=== PATIENT | male | born 1940 | race Caucasian/White ===

== ENCOUNTER 2016-12-09 08:38 | Outpatient (CLI) | payer MEDICARE, OTHER | END 2016-12-09 08:39 | disposition home or self-care (01) | DX: I82.409 Acute embolism and thrombosis of unspecified deep veins of unspecified lower extremity (principal); Z79.01 Long term (current) use of anticoagulants ==

== ENCOUNTER 2017-01-06 10:36 | Outpatient (CLI) | payer MEDICARE, OTHER | END 2017-01-06 10:37 | disposition home or self-care (01) | DX: E11.9 Type 2 diabetes mellitus without complications (principal); E78.2 Mixed hyperlipidemia; C61 Malignant neoplasm of prostate; I82.409 Acute embolism and thrombosis of unspecified deep veins of unspecified lower extremity; Z79.01 Long term (current) use of anticoagulants; Z79.899 Other long term (current) drug therapy ==

== ENCOUNTER 2017-03-03 09:20 | Outpatient (CLI) | payer MEDICARE, OTHER | END 2017-03-03 09:21 | disposition home or self-care (01) | DX: I82.409 Acute embolism and thrombosis of unspecified deep veins of unspecified lower extremity (principal); Z79.01 Long term (current) use of anticoagulants ==

== ENCOUNTER 2017-03-31 07:59 | Outpatient (CLI) | payer MEDICARE, OTHER | END 2017-03-31 08:00 | disposition home or self-care (01) | DX: I82.409 Acute embolism and thrombosis of unspecified deep veins of unspecified lower extremity (principal); Z79.01 Long term (current) use of anticoagulants ==

== ENCOUNTER 2017-04-07 07:43 | Outpatient (CLI) | payer MEDICARE, OTHER | END 2017-04-07 07:44 | disposition home or self-care (01) | LOC: LAB.N 07:43 | PROVIDERS: ATTEND Internal Medicine | DX: I82.409 Acute embolism and thrombosis of unspecified deep veins of unspecified lower extremity (principal); Z79.01 Long term (current) use of anticoagulants | CPT/HCPCS: 85610 ==

== ENCOUNTER 2017-04-14 08:06 | Outpatient (CLI) | payer MEDICARE, OTHER | END 2017-04-14 08:07 | disposition home or self-care (01) | LOC: LAB.N 08:06 | PROVIDERS: ATTEND Internal Medicine | DX: I82.409 Acute embolism and thrombosis of unspecified deep veins of unspecified lower extremity (principal); Z79.01 Long term (current) use of anticoagulants | CPT/HCPCS: 85610 ==

== ENCOUNTER 2017-04-21 07:57 | Outpatient (CLI) | payer MEDICARE, OTHER | END 2017-04-21 07:58 | disposition home or self-care (01) | LOC: LAB.N 07:57 | PROVIDERS: ATTEND Internal Medicine | DX: I82.409 Acute embolism and thrombosis of unspecified deep veins of unspecified lower extremity (principal); Z79.01 Long term (current) use of anticoagulants | CPT/HCPCS: 85610 ==

== ENCOUNTER 2017-04-28 07:49 | Outpatient (CLI) | payer MEDICARE, OTHER | END 2017-04-28 07:50 | disposition home or self-care (01) | LOC: LAB.N 07:49 | PROVIDERS: ATTEND Internal Medicine | DX: I82.409 Acute embolism and thrombosis of unspecified deep veins of unspecified lower extremity (principal); Z79.01 Long term (current) use of anticoagulants | CPT/HCPCS: 85610 ==

== ENCOUNTER 2017-05-26 07:56 | Outpatient (CLI) | payer MEDICARE, OTHER ==
[2017-05-26 13:10] LABS: CALCIUM 8.9 mg/dL (8.5-10.3); CREATININE 1.3 mg/dL (0.6-1.2); POTASSIUM 3.6 mmol/L (3.5-5.0)
[2017-05-26 13:22] LABS: HEMOGLOBIN A1C 0.87 g/dL
== END 2017-05-26 07:57 | disposition home or self-care (01) ==
LOC: LAB.N 07:56
PROVIDERS: ATTEND Internal Medicine
DX: E11.9 Type 2 diabetes mellitus without complications (principal); I82.409 Acute embolism and thrombosis of unspecified deep veins of unspecified lower extremity
CPT/HCPCS: 36415; 80048; 83036; 85610

== ENCOUNTER 2017-06-23 08:21 | Outpatient (CLI) | payer MEDICARE, OTHER | END 2017-06-23 08:22 | LOC: LAB.N 08:21 | PROVIDERS: ATTEND Internal Medicine | DX: I82.409 Acute embolism and thrombosis of unspecified deep veins of unspecified lower extremity (principal); Z79.01 Long term (current) use of anticoagulants | CPT/HCPCS: 85610 ==

== ENCOUNTER 2017-07-21 08:26 | Outpatient (CLI) | payer MEDICARE, OTHER | END 2017-07-21 08:27 | LOC: LAB.N 08:26 | PROVIDERS: ATTEND Internal Medicine | DX: I82.409 Acute embolism and thrombosis of unspecified deep veins of unspecified lower extremity (principal); Z79.01 Long term (current) use of anticoagulants | CPT/HCPCS: 85610 ==

== ENCOUNTER 2017-08-18 08:34 | Outpatient (CLI) | payer MEDICARE, OTHER | END 2017-08-18 08:35 | disposition home or self-care (01) | LOC: LAB.N 08:34 | PROVIDERS: ATTEND Internal Medicine | DX: I82.409 Acute embolism and thrombosis of unspecified deep veins of unspecified lower extremity (principal); Z79.01 Long term (current) use of anticoagulants | CPT/HCPCS: 85610 ==

== ENCOUNTER 2017-10-13 07:37 | Outpatient (CLI) | payer MEDICARE, OTHER | END 2017-10-13 07:38 | disposition home or self-care (01) | LOC: LAB.N 07:37 | PROVIDERS: ATTEND Internal Medicine | DX: I82.409 Acute embolism and thrombosis of unspecified deep veins of unspecified lower extremity (principal); Z79.01 Long term (current) use of anticoagulants | CPT/HCPCS: 85610 ==

== ENCOUNTER 2017-11-10 08:00 | Outpatient (CLI) | payer MEDICARE, OTHER ==
[2017-11-10 13:59] LABS: INR 4.3 (0.8-1.2); PT - PROTHROMBIN TIME 45.5 secs (9.9-12.6)
== END 2017-11-10 08:01 | disposition home or self-care (01) ==
LOC: LAB.N 08:00
PROVIDERS: ATTEND Internal Medicine
DX: I82.409 Acute embolism and thrombosis of unspecified deep veins of unspecified lower extremity (principal); Z79.01 Long term (current) use of anticoagulants
CPT/HCPCS: 36415; 85610

== ENCOUNTER 2017-11-24 08:00 | Outpatient (CLI) | payer MEDICARE, OTHER | END 2017-11-24 08:01 | disposition home or self-care (01) | LOC: LAB.N 08:00 | PROVIDERS: ATTEND Internal Medicine | DX: I82.409 Acute embolism and thrombosis of unspecified deep veins of unspecified lower extremity (principal); Z79.01 Long term (current) use of anticoagulants | CPT/HCPCS: 85610 ==

== ENCOUNTER 2017-12-01 08:00 | Outpatient (CLI) | payer MEDICARE, OTHER | END 2017-12-01 08:01 | disposition home or self-care (01) | LOC: LAB.N 08:00 | PROVIDERS: ATTEND Internal Medicine | DX: I82.409 Acute embolism and thrombosis of unspecified deep veins of unspecified lower extremity (principal); Z79.01 Long term (current) use of anticoagulants | CPT/HCPCS: 85610 ==

== ENCOUNTER 2017-12-15 08:08 | Outpatient (CLI) | payer MEDICARE, OTHER | END 2017-12-15 08:09 | disposition home or self-care (01) | LOC: LAB.N 08:08 | PROVIDERS: ATTEND Internal Medicine | DX: I82.409 Acute embolism and thrombosis of unspecified deep veins of unspecified lower extremity (principal); Z79.01 Long term (current) use of anticoagulants | CPT/HCPCS: 85610 ==

== ENCOUNTER 2018-01-05 16:05 | Outpatient (CLI) | payer MEDICARE, OTHER ==
[2018-01-05 13:05] LABS: BASOPHILS % (AUTO) 0.8 %; EOSINOPHILS # (AUTO) 0.1 10^3/uL (0.0-0.7); EOSINOPHILS % (AUTO) 1.1 %; HGB - HEMOGLOBIN 14.1 g/dL (14.0-18.0); LYMPHOCYTES # (AUTO) 2.2 10^3/uL (1.5-3.5); LYMPHOCYTES % (AUTO) 36.8 %; MEAN CORPUSCULAR HEMOGLOBIN 32.3 pg (27.0-31.0); MEAN CORPUSCULAR HGB CONC 34.4 g/dL (32.0-36.0); MEAN CORPUSCULAR VOLUME 93.9 fL (80.0-94.0); MEAN PLATELET VOLUME 8.7 fL (7.4-11.4); MONOCYTES # (AUTO) 0.4 10^3/uL (0.0-1.0); NEUTROPHILS # (AUTO) 3.3 10^3/uL (1.5-6.6); NEUTROPHILS % (AUTO) 54.3 %; PLT - PLATELET COUNT 220 10^3/uL (130-450); RED BLOOD COUNT 4.37 10^6/uL (4.70-6.10); RED CELL DISTRIBUTION WIDTH 12.6 % (12.0-15.0)
[2018-01-05 13:19] LABS: SODIUM 136 mmol/L (135-145)
[2018-01-05 13:59] LABS: ALBUMIN/GLOBULIN RATIO 1.4 (1.0-2.2); ALKALINE PHOSPHATASE 65 IU/L (42-121); ALT ALANINE AMINOTRANSFERASE 17 IU/L (10-60); AST ASPARTATE AMINOTRANSFERASE 19 IU/L (10-42); BILIRUBIN,TOTAL 0.8 mg/dL (0.2-1.0); BUN - BLOOD UREA NITROGEN 19 mg/dL (6-20); CALCIUM 8.8 mg/dL (8.5-10.3); CARBON DIOXIDE - CO2 26 mmol/L (21-32); CHLORIDE 101 mmol/L (101-111); CHOLESTEROL 210 mg/dL; CREATININE 1.1 mg/dL (0.6-1.2); GFR - MDRD 65 (>89); GLUCOSE 124 mg/dL (70-100); HDL CHOLESTEROL 35 mg/dL; LDL CHOLESTEROL,CALCULATED 121 mg/dL; LDL/HDL RATIO 3.5 (<3.6); TOTAL PROTEIN 6.9 g/dL (6.7-8.2); VLDL CHOLESTEROL 54 mg/dL
[2018-01-05 14:36] LABS: HB2 TOTAL 15.3 g/dL; HEMOGLOBIN A1C 0.8 g/dL; HEMOGLOBIN A1C % 6.9 % (4.6-6.2)
== END 2018-01-05 16:06 | disposition home or self-care (01) ==
LOC: LAB.N 16:05
PROVIDERS: ATTEND Internal Medicine
DX: E11.9 Type 2 diabetes mellitus without complications (principal); Z79.01 Long term (current) use of anticoagulants; C61 Malignant neoplasm of prostate; I82.409 Acute embolism and thrombosis of unspecified deep veins of unspecified lower extremity; I48.91 Unspecified atrial fibrillation; E78.5 Hyperlipidemia, unspecified; I10 Essential (primary) hypertension
CPT/HCPCS: 36415; 80053; 80061; 83036; 83721; 84153; 84443; 85025; 85610

== ENCOUNTER 2018-02-16 08:42 | Outpatient (CLI) | payer MEDICARE, OTHER | END 2018-02-16 08:43 | disposition home or self-care (01) | LOC: LAB.N 08:42 | PROVIDERS: ATTEND Internal Medicine | DX: I82.409 Acute embolism and thrombosis of unspecified deep veins of unspecified lower extremity (principal); Z79.01 Long term (current) use of anticoagulants | CPT/HCPCS: 85610 ==

== ENCOUNTER 2018-03-02 08:46 | Outpatient (CLI) | payer MEDICARE, OTHER ==
[2018-03-02 13:54] LABS: ALT ALANINE AMINOTRANSFERASE 18 IU/L (10-60); AST ASPARTATE AMINOTRANSFERASE 18 IU/L (10-42); LDL CHOLESTEROL,DIRECT 54 mg/dL
== END 2018-03-02 08:47 | disposition home or self-care (01) ==
LOC: LAB.N 08:46
PROVIDERS: ATTEND Internal Medicine
DX: E78.5 Hyperlipidemia, unspecified (principal)
CPT/HCPCS: 36415; 83721; 84450; 84460

== ENCOUNTER 2018-03-16 08:27 | Outpatient (CLI) | payer MEDICARE, OTHER | END 2018-03-16 08:28 | disposition home or self-care (01) | LOC: LAB.N 08:27 | PROVIDERS: ATTEND Internal Medicine | DX: I82.409 Acute embolism and thrombosis of unspecified deep veins of unspecified lower extremity (principal); Z79.01 Long term (current) use of anticoagulants | CPT/HCPCS: 85610 ==

== ENCOUNTER 2018-04-12 08:00 | Outpatient (CLI) | payer MEDICARE, OTHER | END 2018-04-12 08:01 | disposition home or self-care (01) | LOC: LAB.N 08:00 | PROVIDERS: ATTEND Internal Medicine | DX: I82.409 Acute embolism and thrombosis of unspecified deep veins of unspecified lower extremity (principal); Z79.01 Long term (current) use of anticoagulants | CPT/HCPCS: 85610 ==

== ENCOUNTER 2018-04-26 08:00 | Outpatient (CLI) | payer MEDICARE, OTHER | END 2018-04-26 08:01 | LOC: LAB.N 08:00 | PROVIDERS: ATTEND Internal Medicine | DX: I82.409 Acute embolism and thrombosis of unspecified deep veins of unspecified lower extremity (principal); Z79.01 Long term (current) use of anticoagulants | CPT/HCPCS: 85610 ==

== ENCOUNTER 2018-04-27 08:00 | Outpatient (CLI) | payer MEDICARE, OTHER ==
--- NOTE | 2018-04-28 11:26 | Ultrasound Report ---
Procedure Date: 04/27/2018 Accession Number: [id number] / [id number] Procedure: US - Duplex Lwr Ext Arterial Bilat CPT Code: FULL RESULT: EXAM: BILATERAL LOWER EXTREMITY ARTERIAL DOPPLER ULTRASOUND EXAM DATE: 04/27/2018 09:57 AM. CLINICAL HISTORY: Bilateral lower extremity leg and foot pain. COMPARISON: None. TECHNIQUE: Real-time sonographic vascular imaging was performed by the chemical etch operator, utilizing color-flow, Doppler flow, and spectral analysis. Multiple solar sales representative static images were saved for review. FINDINGS: Right lower extremity arterial system: Elevated peak systolic velocity in the proximal right superficial femoral artery measuring up to 410 cm/s with prestenotic velocity measuring 38 cm/s with ratio measuring 10.8, suggesting greater than 90% stenosis, with poststenotic turbulence and monophasic waveforms distally. Left lower extremity arterial system: No focal high-grade stenosis identified, however monophasic waveforms in the calf arteries indicating underlying atherosclerotic disease. RIGHT LEG: MEDICATION AIDE: PSV 105 cm/sec. Biphasic waveform. PSFA: PSV 38 cm/sec. Triphasic waveform. MSFA: PSV 51 cm/sec. Biphasic waveform. DSFA: PSV 38 cm/sec. Biphasic waveform. PFA: PSV 54 cm/sec. Biphasic waveform. POP: PSV 27 cm/sec. Monophasic waveform. SAUL: PSV 27 cm/sec. Monophasic waveform. BACK DIGGER OPERATOR: PSV 20 cm/sec. Monophasic waveform. PER: PSV 41 cm/sec. Monophasic waveform. DPA: PSV 18 cm/sec. Monophasic waveform. LEFT LEG: MEDICATION AIDE: PSV 68 cm/sec. Triphasic waveform. PSFA: PSV 61 cm/sec. Biphasic waveform. MSFA: PSV 113 cm/sec. Biphasic waveform. DSFA: PSV 81 cm/sec. Triphasic waveform. PFA: PSV 60 cm/sec. Biphasic waveform. POP: PSV 48 cm/sec. Triphasic waveform. SAUL: PSV 36 cm/sec. Monophasic waveform. BACK DIGGER OPERATOR: PSV 61 cm/sec. Monophasic waveform. PER: PSV 58 cm/sec. Monophasic waveform. DPA: PSV 64 cm/sec. Monophasic waveform. Brachial Artery Systolic Pressure: Right 122/62. Left 120/60. Posterior tibial Artery Systolic Pressure: Right 97/76. Left 114/60. Ankle/Arm Index: Right 0.79. Left 0.93. IMPRESSION: 1. High-grade stenosis in the right proximal superficial femoral artery. 2. No high-grade stenosis seen in the left lower extremity arterial system identified, however waveforms indicating arterial disease RADIA
== END 2018-04-27 08:01 | disposition home or self-care (01) ==
LOC: DI 08:00
PROVIDERS: ATTEND Podiatrist
DX: I70.203 Unspecified atherosclerosis of native arteries of extremities, bilateral legs (principal); E11.59 Type 2 diabetes mellitus with other circulatory complications
CPT/HCPCS: 93922; 93925

== ENCOUNTER 2018-05-10 08:28 | Outpatient (CLI) | payer MEDICARE, OTHER | END 2018-05-10 08:29 | disposition home or self-care (01) | LOC: LAB.N 08:28 | PROVIDERS: ATTEND Internal Medicine | DX: I82.409 Acute embolism and thrombosis of unspecified deep veins of unspecified lower extremity (principal); Z79.01 Long term (current) use of anticoagulants | CPT/HCPCS: 85610 ==

== ENCOUNTER 2018-05-24 08:12 | Outpatient (CLI) | payer MEDICARE, OTHER | END 2018-05-24 08:13 | disposition home or self-care (01) | LOC: LAB.N 08:12 | PROVIDERS: ATTEND Internal Medicine | DX: I82.409 Acute embolism and thrombosis of unspecified deep veins of unspecified lower extremity (principal); Z79.01 Long term (current) use of anticoagulants | CPT/HCPCS: 85610 ==

== ENCOUNTER 2018-06-16 08:00 | Outpatient (CLI) | payer MEDICARE, OTHER ==
[2018-06-16 13:43] LABS: HB2 TOTAL 14.7 g/dL; HEMOGLOBIN A1C 0.94 g/dL
== END 2018-06-16 08:01 | disposition home or self-care (01) ==
LOC: LAB.N 08:00
PROVIDERS: ATTEND Internal Medicine
DX: E11.9 Type 2 diabetes mellitus without complications (principal); Z79.899 Other long term (current) drug therapy
CPT/HCPCS: 36415; 83036

== ENCOUNTER 2018-06-21 08:00 | Outpatient (CLI) | payer MEDICARE, OTHER | END 2018-06-21 08:01 | disposition home or self-care (01) | LOC: LAB.N 08:00 | PROVIDERS: ATTEND Internal Medicine | DX: I82.409 Acute embolism and thrombosis of unspecified deep veins of unspecified lower extremity (principal); Z79.01 Long term (current) use of anticoagulants | CPT/HCPCS: 85610 ==

== ENCOUNTER 2018-07-19 07:59 | Outpatient (CLI) | payer MEDICARE, OTHER | END 2018-07-19 08:00 | disposition home or self-care (01) | LOC: LAB.N 07:59 | PROVIDERS: ATTEND Internal Medicine | DX: I82.409 Acute embolism and thrombosis of unspecified deep veins of unspecified lower extremity (principal); Z79.01 Long term (current) use of anticoagulants | CPT/HCPCS: 85610 ==

== ENCOUNTER 2018-08-17 08:53 | Outpatient (CLI) | payer MEDICARE, OTHER | END 2018-08-17 08:54 | disposition home or self-care (01) | LOC: LAB 08:53 | PROVIDERS: ATTEND Internal Medicine | DX: I82.409 Acute embolism and thrombosis of unspecified deep veins of unspecified lower extremity (principal); Z79.01 Long term (current) use of anticoagulants | CPT/HCPCS: 85610 ==

== ENCOUNTER 2018-08-31 07:56 | Outpatient (CLI) | payer MEDICARE, OTHER | END 2018-08-31 07:57 | disposition home or self-care (01) | LOC: LAB.N 07:56 | PROVIDERS: ATTEND Internal Medicine | DX: I82.409 Acute embolism and thrombosis of unspecified deep veins of unspecified lower extremity (principal); Z79.01 Long term (current) use of anticoagulants | CPT/HCPCS: 36415; 85610 ==

== ENCOUNTER 2018-09-15 09:17 | Outpatient (CLI) | payer MEDICARE, OTHER ==
[2018-09-15 13:18] LABS: HB2 TOTAL 14.3 g/dL; HEMOGLOBIN A1C 1.01 g/dL; HEMOGLOBIN A1C % 8.6 % (4.6-6.2)
[2018-09-15 13:28] LABS: ALT ALANINE AMINOTRANSFERASE 24 IU/L (10-60); AST ASPARTATE AMINOTRANSFERASE 22 IU/L (10-42); LDL CHOLESTEROL,DIRECT 50 mg/dL
== END 2018-09-15 09:18 ==
LOC: LAB.N 09:17
PROVIDERS: ATTEND Internal Medicine
DX: E11.9 Type 2 diabetes mellitus without complications (principal); Z79.01 Long term (current) use of anticoagulants; E78.5 Hyperlipidemia, unspecified; I82.409 Acute embolism and thrombosis of unspecified deep veins of unspecified lower extremity
CPT/HCPCS: 36415; 83036; 83721; 84450; 84460; 85610

== ENCOUNTER 2018-09-29 09:26 | Outpatient (CLI) | payer MEDICARE, OTHER ==
[2018-09-29 14:03] LABS: INR 3.8 (0.8-1.2); PT - PROTHROMBIN TIME 42.4 secs (9.9-12.6)
== END 2018-09-29 09:27 ==
LOC: LAB.N 09:26
PROVIDERS: ATTEND Internal Medicine
DX: I82.409 Acute embolism and thrombosis of unspecified deep veins of unspecified lower extremity (principal); Z79.01 Long term (current) use of anticoagulants
CPT/HCPCS: 36415; 85610

== ENCOUNTER 2018-10-13 08:56 | Outpatient (CLI) | payer MEDICARE, OTHER | END 2018-10-13 23:59 | disposition home or self-care (01) | LOC: LAB.N 08:56 | PROVIDERS: ATTEND Internal Medicine | DX: I82.409 Acute embolism and thrombosis of unspecified deep veins of unspecified lower extremity (principal); Z79.01 Long term (current) use of anticoagulants | CPT/HCPCS: 85610 ==

== ENCOUNTER 2018-11-10 10:06 | Outpatient (CLI) | payer MEDICARE, OTHER | END 2018-11-10 23:59 | disposition home or self-care (01) | LOC: LAB.N 10:06 | PROVIDERS: ATTEND Internal Medicine | DX: I82.409 Acute embolism and thrombosis of unspecified deep veins of unspecified lower extremity (principal); Z79.01 Long term (current) use of anticoagulants | CPT/HCPCS: 85610 ==

== ENCOUNTER 2018-12-08 07:38 | Outpatient (CLI) | payer MEDICARE, OTHER | END 2018-12-08 23:59 | disposition home or self-care (01) | LOC: LAB.N 07:38 | PROVIDERS: ATTEND Internal Medicine | DX: I82.409 Acute embolism and thrombosis of unspecified deep veins of unspecified lower extremity (principal); Z79.01 Long term (current) use of anticoagulants | CPT/HCPCS: 85610 ==

== ENCOUNTER 2018-12-09 16:46 | Emergency (ER) | payer MEDICARE, OTHER ==
--- NOTE | 2018-12-09 17:10 | ED Physician Documentation ---
PD HPI Fall - Stated complaint Stated Complaint: FACE INJ/FALL - Chief complaint Chief Complaint: Trauma Hd/Nk - History obtained from History obtained from: Patient, EMS - History of Present Illness Mechanism of injury: Tripped (he says he remembers his feet getting tripped up on curb and he fell forward, striking face on curb, chest on ground, and right wrist injury from trying to break fall.) Fall distance: Standing position Where injury occurred: Street Timing - onset: Today Injury(ies) location: Head, Face, Chest, Right Upper Extremity (wrist) Quality of pain: Aching Associated symptoms: No: LOC, AMS Worsens with: Palpation (of the wrist and eyebrow areas) Contributing factors: Anticoagulated. No: Intoxicated Similar symptoms before: Has not had sx before Review of Systems Constitutional: denies: Fever, Chills, Myalgias Eyes: denies: Loss of vision, Decreased vision, Photophobia Nose: denies: Rhinorrhea / runny nose, Congestion Throat: denies: Sore throat Respiratory: denies: Cough GI: denies: Nausea Musculoskeletal: denies: Neck pain, Back pain PD PAST MEDICAL HISTORY - Past Medical History Cardiovascular: Hypertension, Atrial fibrillation Respiratory: None Endocrine/Autoimmune: Type 2 diabetes GI: GERD : Frequency Derm: None - Past Surgical History Past Surgical History: Yes General: EGD, Colonoscopy Neuro: Craniotomy HEENT: Cataracts - Present Medications Home Medications: Ambulatory Orders Medication Instructions Recorded Confirmed Metformin HCl [Metformin HCl ER] 750 mg PO BID 04/19/13 12/09/18 Cyanocobalamin [Vitamin B-12] 500 mcg PO DAILY 05/09/14 12/09/18 Docusate Sodium 250Mg Capsule 1 tab PO BID 05/09/14 12/09/18 [Colace] Pnv95/Ferrous Fumarate/FA 1 tab PO DAILY 05/09/14 12/09/18 [ Tablet] Ascorbic Acid [Vitamin C] 500 mg PO BID 03/11/16 12/09/18 Hydrochlorothiazide 25 mg PO DAILY 03/11/16 12/09/18 Metoprolol Tartrate [Lopressor] 50 mg PO BID 03/11/16 12/09/18 Warfarin [Coumadin] 5 mg PO QPM 03/11/16 12/09/18 Ferrous Gluconate [Iron] 240 mg PO DAILY PM 12/09/18 12/09/18 Rosuvastatin Calcium [Crestor] 5 mg PO DAILY 12/09/18 12/09/18 Guaifenesin [Mucinex] 600 mg PO PRN PRN 12/11/18 12/11/18 - Allergies Allergies/Adverse Reactions: Allergies Allergy/AdvReac Type Severity Reaction Status Date / Time ciprofloxacin [From Cipro] Allergy Mild Hives Verified 12/11/18 14:43 ciprofloxacin HCl * Allergy Mild Hives Verified 12/11/18 14:43 [From Cipro] - Social History Does the pt smoke?: No Smoking Status: Never smoker Does the pt drink ETOH?: No Does the pt have substance abuse?: No - POLST POLST Status: Full Code PD ED PE NORMAL - Vitals Vital signs reviewed: Yes - General General: Alert and oriented X 3, No acute distress, Well developed/nourished - HEENT HEENT: PERRL (anterior and posterior chambers appear normal. ), EOMI, Pharynx benign, Dentition benign, Other (right lateral eyebrow and upper eyelid with swelling and early bruising. ) - Neck Neck: Supple, no meningeal sign, No bony TTP, No adenopathy, Other (mild mid sternal chest tenderness without deformity. No bony tenderness in neck. ) - Cardiac Cardiac: RRR, No murmur - Respiratory Respiratory: Clear bilaterally - Abdomen Abdomen: Soft, Non distended - Back Back: No CVA TTP - Derm Derm: Normal color, Warm and dry, Other (right wrist with some tenderness at distal radius without obvious deformity. ) - Neuro Neuro: Alert and oriented X 3 Eye Opening: Spontaneous Motor: Obeys Commands Verbal: Oriented GCS Score: 15 - Psych Psych: Normal mood, Normal affect Results - Vitals Vitals: Oxygen O2 Source Room air - Labs Labs: Laboratory Tests 12/09/18 17:26 Whole Blood INR 3.2 H - Rads (name of study) head and face CT Radiology: Prelim report reviewed chest CT Radiology: Prelim report reviewed (no fractures nor hematomas) right wrist xray Radiology: Prelim report reviewed, EMP read contemporaneously, See rad report PD MEDICAL DECISION MAKING - ED course Complexity details: reviewed results, re-evaluated patient, considered differential (just the hematoma right lateral upper eyebrow. No eye injury itself. Normal mentation. Will get imaging of head and neck, also anterior chest, and right wrist. ), d/w patient Departure - Departure Disposition: 01 Home, Self Care Clinical Impression: Anticoagulant long-term use Periorbital hematoma Qualifiers: Laterality: right Qualified Code(s): H05.231 - Hemorrhage of right orbit Fall from slip, trip, or stumble Qualifiers: Encounter type: initial encounter Qualified Code(s): W01.0XXA - Fall on same level from slipping, tripping and stumbling without subsequent striking against object, initial encounter Condition: Stable Record reviewed to determine appropriate education?: Yes Instructions: ED Hematoma Follow-Up: Justen Roth MD [Primary Care Provider] - Comments: Cool towels or ice to the area of swelling. The radiologist did not see any signs of bleeding in the brain compartment. There is obviously the bruising around the eye. I would suggest holding tonight's dose of Coumadin as well given the new injury. Return if he has increasing signs of headache, confusion, off balance, other focal weaknesses. There rarely can repeat heat bleeding from an injury like this while on an anticoagulant. Typically that is very low risk if there is not already some bruising present. Tylenol if needed for pains. The wrist x-ray appeared normal as well as the ribs. Discharge Date/Time: 12/09/18 19:46
--- NOTE | 2018-12-09 18:24 | XRAY Report ---
Reason: fell with right wrist pain Procedure Date: 12/09/2018 Accession Number: [id number] / [id number] Procedure: XR - Wrist 3 View RT CPT Code: FULL RESULT: EXAM: RIGHT WRIST RADIOGRAPHY EXAM DATE: 12/09/2018 05:47 PM. CLINICAL HISTORY: Fell with right wrist pain. COMPARISON: None. TECHNIQUE: 3 views. FINDINGS: Bones: Normal. No fractures or bone lesions. Joints: No subluxation or narrowing. Mild chondrocalcinosis at the triangular fibrocartilage. Soft Tissues: Mild radial and ulnar artery atherosclerotic calcification. No janie soft tissue swelling. IMPRESSION: 1. No fracture or malalignment. 2. 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 [facility]
--- NOTE | 2018-12-09 18:48 | CT Report ---
Reason: fell, struck face, on coumadin Procedure Date: 12/09/2018 Accession Number: [id number] / [id number] Procedure: CT - Head W/O CPT Code: FULL RESULT: EXAM: CT HEAD EXAM DATE: 12/09/2018 06:18 PM. CLINICAL HISTORY: Fell. Struck face. On coumadin. COMPARISON: HEAD W/ 05/10/2014 3:53 AM. TECHNIQUE: Multiaxial CT images were obtained from the foramen magnum to the vertex. Reformats: Sagittal and coronal. IV contrast: None. In accordance with CT protocol optimization, one or more of the following dose reduction techniques were utilized for this exam: automated exposure control, adjustment of mA and/or KV based on patient size, or use of iterative reconstructive technique. FINDINGS: Parenchyma: No intraparenchymal hemorrhage. Stable anterior right temporal lobe and inferior right frontal lobe encephalomalacia. No evidence of mass, midline shift, or CT findings of acute infarction. Johnston-white differentiation is distinct. Stable chronic microangiopathic white matter changes are evident. Extraaxial Spaces: Normal for age. No subdural or epidural collections identified. Ventricles: The ventricles and cortical sulci are prominent, consistent with age-related tissue loss. Sinuses and orbits: Extensive mucosal thickening of the paranasal sinuses, with totally opacified ethmoid air cells. No fluid levels. Bones: No acute fracture. Prior right frontal craniotomy defect again noted. Other: Moderate right periorbital soft tissue swelling.. IMPRESSION: 1. Stable age-related cortical atrophic changes without evidence of acute intracranial abnormality. 2. Stable right tentorial thickening, inferior right frontal lobe encephalomalacia, and anterior right temporal lobe encephalomalacia. 3. Old right frontal craniotomy defect. 4. Advanced chronic sinusitis. [facility]
--- NOTE | 2018-12-09 18:52 | CT Report ---
Reason: fell, struck right orbit, on coumadin Procedure Date: 12/09/2018 Accession Number: [id number] / [id number] Procedure: CT - Facial Bones W/O CPT Code: FULL RESULT: EXAM: CT MAXILLOFACIAL WITHOUT CONTRAST EXAM DATE: 12/09/2018 06:19 PM. CLINICAL HISTORY: Fell. Struck right orbit. On coumadin. COMPARISONS: HEAD W/ 05/10/2014 3:53 AM. TECHNIQUE: Thin-section axial images were acquired of the face without contrast. Post-processing: Coronal and sagittal reformats. Other: None. In accordance with CT protocol optimization, one or more of the following dose reduction techniques were utilized for this exam: automated exposure control, adjustment of mA and/or KV based on patient size, or use of iterative reconstructive technique. FINDINGS: Soft Tissue: Moderate right periorbital bruising, with small 10 mm lower right forehead hematoma. Orbits: Symmetric and unremarkable. Bones: No fracture. Right frontal craniotomy defect noted. Temporomandibular Joints: The temporomandibular joints are symmetric and normally located. Sinuses: No fluid levels. Diffuse mucosal thickening, with totally opacified ethmoid air cells. Other: None. IMPRESSION: 1. No acute bony abnormality. 2. Moderate right periorbital bruising, with small 10 mm lower right forehead scalp hematoma. 3. Advanced chronic sinusitis. 4. Old right frontal craniotomy defect. [facility]
[2018-12-09 19:18] VITALS: BP 164/84
--- NOTE | 2018-12-09 19:18 | CT Report ---
Reason: fell, struck anterior chest, on coumadin Procedure Date: 12/09/2018 Accession Number: [id number] / [id number] Procedure: CT - Chest W/O CPT Code: FULL RESULT: EXAM: CT CHEST EXAM DATE: 12/09/2018 06:29 PM. CLINICAL HISTORY: Fell. Struck anterior chest. On coumadin. COMPARISONS: None. TECHNIQUE: Routine helical CT imaging was performed through the chest. IV contrast: None. Reconstructions: Coronal and sagittal. In accordance with CT protocol optimization, one or more of the following dose reduction techniques were utilized for this exam: automated exposure control, adjustment of mA and/or KV based on patient size, or use of iterative reconstructive technique. FINDINGS: Lungs/Pleura: Mild scarring/atelectasis in the bases. No nodules, bronchial thickening, consolidation, or edema. Pulmonary vasculature is normal. No pericardial or pleural effusion. No pneumothorax. Mediastinum: Aortic and coronary artery calcification noted. No adenopathy or masses. The heart and great vessels are normal. Bones: Unremarkable. Visualized Abdomen: Large gallstones noted. Other: No sign of soft tissue hematoma. IMPRESSION: 1. No fractures identified. 2. Mild scarring/atelectasis in the bases, otherwise clear lungs. 3. Multiple cholelithiasis noted. [facility]
== END 2018-12-09 19:46 | disposition home or self-care (01) ==
LOC: ED 16:46
DX: H05.231 Hemorrhage of right orbit (principal); I10 Essential (primary) hypertension; E11.9 Type 2 diabetes mellitus without complications; Z79.84 Long term (current) use of oral hypoglycemic drugs; I48.91 Unspecified atrial fibrillation; Z79.01 Long term (current) use of anticoagulants; Z91.81 History of falling
CPT/HCPCS: 70450; 70486; 71250; 85610; 99283

== ENCOUNTER 2018-12-11 14:35 | Emergency (ER) | payer MEDICARE, OTHER ==
[2018-12-11] MEDS ORDERED: LIDOCAINE-EPINEPH-TETRACAINE 3 ML SYRINGE TOP STA (14:53)
--- NOTE | 2018-12-11 14:57 | ED Physician Documentation ---
PD HPI HEENT - Stated complaint Stated Complaint: BLOODY NOSE/FACE SWELLING - Chief complaint Chief Complaint: General - History obtained from History obtained from: Patient, Family - History of Present Illness Timing - onset: Today Timing - duration: Minutes Timing - details: Abrupt onset, Still present Location: Nose Associated symptoms: Congestion, Rhinorrhea, Cough. No: Fever Similar symptoms before: Has not had sx before Recently seen: Emergency Dept - Additional information Additional information: 78-year-old male who is on Coumadin for DVT and A. fib has had a fall 3 days ago and he was evaluated in the emergency department had CT scan of his head done and at that time his INR was 3.2 and he was instructed to skip his Wednesday evening dose of Coumadin. He was well over the weekend he does have a lot of bruising to his face he denies any specific headache and he denies any change in his mentation. Today he got a bloody nose and he has come to the emergency department because of the bloody nose. The blood appears to be coming from the right nares and is been controlled by direct pressure. They bring in some gauze with some blood on it and this is scantly placed on the gauze. Review of Systems Constitutional: denies: Fever, Chills, Myalgias Eyes: denies: Decreased vision Ears: denies: Ear pain Nose: reports: Rhinorrhea / runny nose, Congestion, Epistaxis Throat: denies: Dental pain / toothache, Oral lesions / sores Cardiac: denies: Chest pain / pressure, Palpitations Respiratory: reports: Cough. denies: Dyspnea GI: denies: Abdominal Pain, Nausea, Vomiting : denies: Dysuria, Frequency PD PAST MEDICAL HISTORY - Past Medical History Past Medical History: Yes Cardiovascular: Hypertension Respiratory: None Endocrine/Autoimmune: Type 2 diabetes GI: GERD : Frequency Derm: None - Past Surgical History Past Surgical History: Yes General: EGD, Colonoscopy Neuro: Craniotomy HEENT: Cataracts - Present Medications Home Medications: Ambulatory Orders Medication Instructions Recorded Confirmed Metformin HCl [Metformin HCl ER] 750 mg PO BID 04/19/13 12/09/18 Cyanocobalamin [Vitamin B-12] 500 mcg PO DAILY 05/09/14 12/09/18 Docusate Sodium 250Mg Capsule 1 tab PO BID 05/09/14 12/09/18 [Colace] Pnv95/Ferrous Fumarate/FA 1 tab PO DAILY 05/09/14 12/09/18 [ Tablet] Ascorbic Acid [Vitamin C] 500 mg PO BID 03/11/16 12/09/18 Hydrochlorothiazide 25 mg PO DAILY 03/11/16 12/09/18 Metoprolol Tartrate [Lopressor] 50 mg PO BID 03/11/16 12/09/18 Warfarin [Coumadin] 5 mg PO QPM 03/11/16 12/09/18 Ferrous Gluconate [Iron] 240 mg PO DAILY PM 12/09/18 12/09/18 Rosuvastatin Calcium [Crestor] 5 mg PO DAILY 12/09/18 12/09/18 Guaifenesin [Mucinex] 600 mg PO PRN PRN 12/11/18 12/11/18 - Allergies Allergies/Adverse Reactions: Allergies Allergy/AdvReac Type Severity Reaction Status Date / Time ciprofloxacin [From Cipro] Allergy Mild Hives Verified 12/11/18 14:43 ciprofloxacin HCl * Allergy Mild Hives Verified 12/11/18 14:43 [From Cipro] - Social History Does the pt smoke?: No Smoking Status: Never smoker Does the pt drink ETOH?: No Does the pt have substance abuse?: No - POLST POLST Status: Full Code PD ED PE NORMAL - Vitals Vital signs reviewed: Yes (hypertension mild ) - General General: Alert and oriented X 3, No acute distress, Well developed/nourished - HEENT HEENT: PERRL, EOMI, Other (There is impressive appearing ecchymosis to the periorbital tissues bilaterally worse on the right. The patient looks like a raccoon. There is bleeding evident to the anterior septum on the right and not the left. ) - Neck Neck: Supple, no meningeal sign, No bony TTP - Cardiac Cardiac: RRR, No murmur - Respiratory Respiratory: No respiratory distress, Clear bilaterally - Abdomen Abdomen: Soft, Non tender - Derm Derm: Normal color, Warm and dry, No rash - Extremities Extremities: No deformity, No edema - Neuro Neuro: Alert and oriented X 3, chick room supervisor 2-12 intact, No motor deficit, No sensory deficit, Normal speech Eye Opening: Spontaneous Motor: Obeys Commands Verbal: Oriented GCS Score: 15 - Psych Psych: Normal mood, Normal affect Results - Vitals Vitals: Vital Signs - 24 hr 12/11/18 14:41 Temperature 35.8 C L Heart Rate 78 Respiratory 16 Rate Blood Pressure 136/75 H O2 Saturation 99 Oxygen O2 Source Room air - Labs Labs: Laboratory Tests 12/11/18 15:10 Whole Blood INR 2.3 H Procedures - Epistaxis Site: Right, Anterior Preparation: Other (let applied) Treatment: Silver Nitrate Other: Observed - no bleeding, Pt tolerated well PD MEDICAL DECISION MAKING - ED course Complexity details: considered differential, d/w patient ED course: 78-year-old male with epistaxis on Coumadin has an INR of 2.3 and his bleeding is coming from an area very anterior in the septum which was easy to control and has been cauterized with silver nitrate.He has had a recent head injury and he does not have any progression of symptoms regarding that with the exception of the ecchymosis around his eyes which is impressive appearing but of little consequence. Departure - Departure Disposition: 01 Home, Self Care Clinical Impression: Epistaxis Condition: Stable Instructions: ED Nosebleed Follow-Up: Justen Roth MD [Primary Care Provider] - Comments: The bleeding in the right side of the nose is very anterior and should be easy to control with direct pressure if it recurs. Today her INR was 2.3 and I would recommend you restarting your Coumadin at its previous dose.
[2018-12-11 15:44] VITALS: BP 116/59
== END 2018-12-11 15:25 | disposition home or self-care (01) ==
LOC: ED 14:35
DX: R04.0 Epistaxis (principal); J34.89 Other specified disorders of nose and nasal sinuses; R05 Cough; I48.91 Unspecified atrial fibrillation; Z86.718 Personal history of other venous thrombosis and embolism; Z79.01 Long term (current) use of anticoagulants; I10 Essential (primary) hypertension; E11.9 Type 2 diabetes mellitus without complications; Z79.84 Long term (current) use of oral hypoglycemic drugs
CPT/HCPCS: 30901; 85610; 99282; 99283

== ENCOUNTER 2018-12-27 08:00 | Outpatient (CLI) | payer MEDICARE, OTHER | END 2018-12-27 23:59 | disposition home or self-care (01) | LOC: LAB.N 08:00 | PROVIDERS: ATTEND Internal Medicine | DX: I82.409 Acute embolism and thrombosis of unspecified deep veins of unspecified lower extremity (principal); Z79.01 Long term (current) use of anticoagulants | CPT/HCPCS: 85610 ==

== ENCOUNTER 2019-01-05 08:01 | Outpatient (CLI) | payer MEDICARE, OTHER ==
[2019-01-05 14:22] LABS: BASOPHILS % (AUTO) 0.4 %; EOSINOPHILS # (AUTO) 0.1 10^3/uL (0.0-0.7); HGB - HEMOGLOBIN 12.8 g/dL (14.0-18.0); LYMPHOCYTES # (AUTO) 1.7 10^3/uL (1.5-3.5); MEAN CORPUSCULAR HEMOGLOBIN 32.5 pg (27.0-31.0); MEAN CORPUSCULAR HGB CONC 33.4 g/dL (32.0-36.0); MEAN CORPUSCULAR VOLUME 97.3 fL (80.0-94.0); MEAN PLATELET VOLUME 8.2 fL (7.4-11.4); MONOCYTES # (AUTO) 0.4 10^3/uL (0.0-1.0); MONOCYTES % (AUTO) 6.7 %; NEUTROPHILS # (AUTO) 3.5 10^3/uL (1.5-6.6); NEUTROPHILS % (AUTO) 60.9 %; PLT - PLATELET COUNT 194 10^3/uL (130-450); RED BLOOD COUNT 3.96 10^6/uL (4.70-6.10); RED CELL DISTRIBUTION WIDTH 13.5 % (12.0-15.0); WHITE BLOOD COUNT 5.7 x10^3/uL (4.8-10.8)
[2019-01-05 14:35] LABS: ALBUMIN 3.6 g/dL (3.2-5.5); ALBUMIN/GLOBULIN RATIO 1.2 (1.0-2.2); ALKALINE PHOSPHATASE 74 IU/L (42-121); ALT ALANINE AMINOTRANSFERASE 19 IU/L (10-60); AST ASPARTATE AMINOTRANSFERASE 22 IU/L (10-42); BILIRUBIN,TOTAL 0.8 mg/dL (0.2-1.0); BUN - BLOOD UREA NITROGEN 20 mg/dL (6-20); CALCIUM 8.4 mg/dL (8.5-10.3); CARBON DIOXIDE - CO2 28 mmol/L (21-32); CHLORIDE 100 mmol/L (101-111); CHOL/HDL RATIO 2.8 (<5.0); CHOLESTEROL 110 mg/dL; CREATININE 0.9 mg/dL (0.6-1.2); GFR - MDRD 81 (>89); GLUCOSE 138 mg/dL (70-100); HDL CHOLESTEROL 39 mg/dL; LDL CHOLESTEROL,CALCULATED 42 mg/dL; LDL/HDL RATIO 1.1 (<3.6); SODIUM 138 mmol/L (135-145); TOTAL PROTEIN 6.7 g/dL (6.7-8.2); VLDL CHOLESTEROL 29 mg/dL
[2019-01-05 14:54] LABS: HB2 TOTAL 13.5 g/dL; HEMOGLOBIN A1C 0.7 g/dL; HEMOGLOBIN A1C % 6.9 % (4.6-6.2)
== END 2019-01-05 23:59 | disposition home or self-care (01) ==
LOC: LAB.N 08:01
PROVIDERS: ATTEND Internal Medicine
DX: I48.91 Unspecified atrial fibrillation (principal); I73.9 Peripheral vascular disease, unspecified; C61 Malignant neoplasm of prostate; E78.5 Hyperlipidemia, unspecified; E11.9 Type 2 diabetes mellitus without complications
CPT/HCPCS: 36415; 80053; 80061; 83036; 83721; 84153; 84443; 85025; 85610

== ENCOUNTER 2019-01-11 08:40 | Outpatient (CLI) | payer MEDICARE, OTHER | END 2019-01-11 23:59 | disposition home or self-care (01) | LOC: LAB.N 08:40 | PROVIDERS: ATTEND Internal Medicine | DX: I82.409 Acute embolism and thrombosis of unspecified deep veins of unspecified lower extremity (principal); Z79.01 Long term (current) use of anticoagulants | CPT/HCPCS: 85610 ==

== ENCOUNTER 2019-02-21 09:22 | Outpatient (CLI) | payer MEDICARE, OTHER ==
[2019-02-21 10:03] LABS: CALCIUM 8.5 mg/dL (8.5-10.3)
== END 2019-02-21 09:23 | disposition home or self-care (01) ==
LOC: LAB 09:22
PROVIDERS: ATTEND Internal Medicine
DX: E87.6 Hypokalemia (principal); Z79.01 Long term (current) use of anticoagulants; I48.91 Unspecified atrial fibrillation
CPT/HCPCS: 36415; 80048; 85610

== ENCOUNTER 2019-03-01 08:00 | Outpatient (CLI) | payer MEDICARE, OTHER | END 2019-03-01 23:59 | disposition home or self-care (01) | LOC: LAB.N 08:00 | PROVIDERS: ATTEND Internal Medicine | DX: I48.91 Unspecified atrial fibrillation (principal); Z79.01 Long term (current) use of anticoagulants | CPT/HCPCS: 85610 ==

== ENCOUNTER 2019-03-08 08:00 | Outpatient (CLI) | payer MEDICARE, OTHER | END 2019-03-08 23:59 | disposition home or self-care (01) | LOC: LAB.N 08:00 | PROVIDERS: ATTEND Internal Medicine | DX: I48.91 Unspecified atrial fibrillation (principal); Z79.01 Long term (current) use of anticoagulants | CPT/HCPCS: 85610 ==

== ENCOUNTER 2019-03-13 08:00 | Outpatient (CLI) | payer MEDICARE, OTHER | END 2019-03-13 23:59 | disposition home or self-care (01) | LOC: LAB.N 08:00 | PROVIDERS: ATTEND Internal Medicine | DX: I48.91 Unspecified atrial fibrillation (principal); Z79.01 Long term (current) use of anticoagulants | CPT/HCPCS: 85610 ==

== ENCOUNTER 2019-03-20 08:00 | Outpatient (CLI) | payer MEDICARE, OTHER | END 2019-03-20 23:59 | disposition home or self-care (01) | LOC: LAB.N 08:00 | PROVIDERS: ATTEND Internal Medicine | DX: I48.91 Unspecified atrial fibrillation (principal); Z79.01 Long term (current) use of anticoagulants | CPT/HCPCS: 85610 ==

== ENCOUNTER 2019-03-27 08:00 | Outpatient (CLI) | payer MEDICARE, OTHER | END 2019-03-27 23:59 | disposition home or self-care (01) | LOC: LAB.N 08:00 | PROVIDERS: ATTEND Internal Medicine | DX: Z79.01 Long term (current) use of anticoagulants (principal); I48.91 Unspecified atrial fibrillation | CPT/HCPCS: 85610 ==

== ENCOUNTER 2019-04-03 08:00 | Outpatient (CLI) | payer MEDICARE, OTHER | END 2019-04-03 23:59 | disposition home or self-care (01) | LOC: LAB.N 08:00 | PROVIDERS: ATTEND Internal Medicine | DX: I48.91 Unspecified atrial fibrillation (principal); Z79.01 Long term (current) use of anticoagulants | CPT/HCPCS: 85610 ==

== ENCOUNTER 2019-04-11 08:00 | Outpatient (CLI) | payer MEDICARE, OTHER | END 2019-04-11 23:59 | disposition home or self-care (01) | LOC: LAB.N 08:00 | PROVIDERS: ATTEND Internal Medicine | DX: I48.91 Unspecified atrial fibrillation (principal); Z79.01 Long term (current) use of anticoagulants | CPT/HCPCS: 85610 ==

== ENCOUNTER 2019-04-18 08:00 | Outpatient (CLI) | payer MEDICARE, OTHER | END 2019-04-18 23:59 | disposition home or self-care (01) | LOC: LAB.N 08:00 | PROVIDERS: ATTEND Internal Medicine | DX: I48.91 Unspecified atrial fibrillation (principal); Z79.01 Long term (current) use of anticoagulants | CPT/HCPCS: 85610 ==

== ENCOUNTER 2019-04-26 08:00 | Outpatient (CLI) | payer MEDICARE, OTHER | END 2019-04-26 23:59 | disposition home or self-care (01) | LOC: LAB.N 08:00 | PROVIDERS: ATTEND Internal Medicine | DX: I48.91 Unspecified atrial fibrillation (principal); Z79.01 Long term (current) use of anticoagulants | CPT/HCPCS: 85610 ==

== ENCOUNTER 2019-05-03 08:00 | Outpatient (CLI) | payer MEDICARE, OTHER | END 2019-05-03 23:59 | disposition home or self-care (01) | LOC: LAB.N 08:00 | PROVIDERS: ATTEND Internal Medicine | DX: Z79.01 Long term (current) use of anticoagulants (principal); I48.91 Unspecified atrial fibrillation | CPT/HCPCS: 85610 ==

== ENCOUNTER 2019-05-10 08:00 | Outpatient (CLI) | payer MEDICARE, OTHER | END 2019-05-10 08:01 | disposition home or self-care (01) | LOC: LAB.N 08:00 | PROVIDERS: ATTEND Internal Medicine | DX: I48.91 Unspecified atrial fibrillation (principal); Z79.01 Long term (current) use of anticoagulants | CPT/HCPCS: 85610 ==

== ENCOUNTER 2019-05-25 09:52 | Outpatient (CLI) | payer MEDICARE, OTHER | END 2019-05-25 23:59 | disposition home or self-care (01) | LOC: LAB.WCP 09:52 | PROVIDERS: ATTEND Internal Medicine | DX: I48.91 Unspecified atrial fibrillation (principal); Z79.01 Long term (current) use of anticoagulants | CPT/HCPCS: 85610 ==

== ENCOUNTER 2019-06-15 | Outpatient (CLI) | payer MEDICARE, OTHER | END 2019-06-15 23:59 | disposition home or self-care (01) | DX: I48.91 Unspecified atrial fibrillation (principal); Z79.01 Long term (current) use of anticoagulants | CPT/HCPCS: 85610 ==

== ENCOUNTER 2019-06-29 08:43 | Outpatient (CLI) | payer MEDICARE, OTHER | END 2019-06-29 23:59 | disposition home or self-care (01) | LOC: LAB.N 08:43 | PROVIDERS: ATTEND Internal Medicine | DX: I48.91 Unspecified atrial fibrillation (principal); Z79.01 Long term (current) use of anticoagulants | CPT/HCPCS: 85610 ==

== ENCOUNTER 2019-07-06 08:00 | Outpatient (CLI) | payer MEDICARE, OTHER | END 2019-07-06 23:59 | LOC: LAB.N 08:00 | PROVIDERS: ATTEND Family Medicine | DX: I48.91 Unspecified atrial fibrillation (principal); Z79.01 Long term (current) use of anticoagulants | CPT/HCPCS: 85610 ==

== ENCOUNTER 2019-07-13 10:01 | Outpatient (CLI) | payer MEDICARE, OTHER | END 2019-07-13 23:59 | disposition home or self-care (01) | LOC: LAB.N 10:01 | PROVIDERS: ATTEND Family Medicine | DX: I48.91 Unspecified atrial fibrillation (principal); Z79.01 Long term (current) use of anticoagulants | CPT/HCPCS: 85610 ==

== ENCOUNTER 2019-07-24 08:00 | Outpatient (CLI) | payer MEDICARE, OTHER | END 2019-07-24 23:59 | disposition home or self-care (01) | LOC: LAB.N 08:00 | PROVIDERS: ATTEND Family Medicine | DX: I48.91 Unspecified atrial fibrillation (principal); Z79.01 Long term (current) use of anticoagulants | CPT/HCPCS: 85610 ==

== ENCOUNTER 2019-07-31 08:00 | Outpatient (CLI) | payer MEDICARE, OTHER | END 2019-07-31 23:59 | disposition home or self-care (01) | LOC: LAB.N 08:00 | PROVIDERS: ATTEND Family Medicine | DX: I48.91 Unspecified atrial fibrillation (principal); Z79.01 Long term (current) use of anticoagulants | CPT/HCPCS: 85610 ==

== ENCOUNTER 2019-08-07 08:00 | Outpatient (CLI) | payer MEDICARE, OTHER | END 2019-08-07 08:15 | disposition home or self-care (01) | LOC: LAB.N 08:00 | PROVIDERS: ATTEND Family Medicine | DX: I48.91 Unspecified atrial fibrillation (principal); Z79.01 Long term (current) use of anticoagulants | CPT/HCPCS: 85610 ==

== ENCOUNTER 2019-08-22 09:08 | Outpatient (CLI) | payer MEDICARE, OTHER ==
[2019-08-22 12:44] LABS: CALCIUM 9.1 mg/dL (8.5-10.3)
[2019-08-22 12:55] LABS: HEMOGLOBIN A1C 0.76 g/dL; HEMOGLOBIN A1C % 7.1 % (4.6-6.2)
[2019-08-22 12:57] LABS: THYROID STIMULATING HORMONE 1.8 uIU/mL (0.34-5.60)
[2019-08-22 12:59] LABS: FREE T4 (FREE THYROXINE) 0.81 ng/dL (0.58-1.64)
== END 2019-08-22 23:59 | disposition home or self-care (01) ==
LOC: LAB.N 09:08
PROVIDERS: ATTEND Family Medicine
DX: Z79.01 Long term (current) use of anticoagulants (principal); I48.91 Unspecified atrial fibrillation; E11.9 Type 2 diabetes mellitus without complications; I10 Essential (primary) hypertension; E66.9 Obesity, unspecified
CPT/HCPCS: 36415; 80048; 83036; 84439; 84443; 84481; 85610

== ENCOUNTER 2019-08-30 08:00 | Outpatient (CLI) | payer MEDICARE, OTHER | END 2019-08-30 23:59 | disposition home or self-care (01) | LOC: LAB.N 08:00 | PROVIDERS: ATTEND Family Medicine | DX: Z79.01 Long term (current) use of anticoagulants (principal); I48.91 Unspecified atrial fibrillation | CPT/HCPCS: 85610 ==

== ENCOUNTER 2019-09-07 09:34 | Outpatient (CLI) | payer MEDICARE, OTHER | END 2019-09-07 09:35 | disposition home or self-care (01) | LOC: LAB.N 09:34 | PROVIDERS: ATTEND Family Medicine | DX: Z79.01 Long term (current) use of anticoagulants (principal); I48.91 Unspecified atrial fibrillation | CPT/HCPCS: 85610 ==

== ENCOUNTER 2019-09-14 08:00 | Outpatient (CLI) | payer MEDICARE, OTHER | END 2019-09-14 23:59 | LOC: LAB.N 08:00 | PROVIDERS: ATTEND Family Medicine | DX: Z79.01 Long term (current) use of anticoagulants (principal); I48.91 Unspecified atrial fibrillation | CPT/HCPCS: 85610 ==

== ENCOUNTER 2019-09-28 07:29 | Outpatient (CLI) | payer MEDICARE, OTHER | END 2019-09-28 23:59 | disposition home or self-care (01) | LOC: LAB.N 07:29 | PROVIDERS: ATTEND Family Medicine | DX: Z79.01 Long term (current) use of anticoagulants (principal); I48.91 Unspecified atrial fibrillation | CPT/HCPCS: 85610 ==

== ENCOUNTER 2019-10-26 10:04 | Outpatient (CLI) | payer MEDICARE, OTHER | END 2019-10-26 23:59 | disposition home or self-care (01) | LOC: LAB.N 10:04 | PROVIDERS: ATTEND Family Medicine | DX: Z79.01 Long term (current) use of anticoagulants (principal); I48.91 Unspecified atrial fibrillation | CPT/HCPCS: 85610 ==

== ENCOUNTER 2019-11-23 08:00 | Outpatient (CLI) | payer MEDICARE, OTHER | END 2019-11-23 23:59 | disposition home or self-care (01) | LOC: LAB.N 08:00 | PROVIDERS: ATTEND Family Medicine | DX: Z79.01 Long term (current) use of anticoagulants (principal); I48.91 Unspecified atrial fibrillation | CPT/HCPCS: 85610 ==

== ENCOUNTER 2019-12-21 07:45 | Outpatient (CLI) | payer MEDICARE, OTHER | END 2019-12-21 23:59 | disposition home or self-care (01) | LOC: LAB.N 07:45 | PROVIDERS: ATTEND Family Medicine | DX: I48.91 Unspecified atrial fibrillation (principal); Z79.01 Long term (current) use of anticoagulants | CPT/HCPCS: 85610 ==

== ENCOUNTER 2019-12-29 10:46 | Outpatient (CLI) | payer MEDICARE, OTHER | END 2019-12-29 23:59 | disposition home or self-care (01) | LOC: LAB.N 10:46 | PROVIDERS: ATTEND Family Medicine | DX: Z79.01 Long term (current) use of anticoagulants (principal); I48.91 Unspecified atrial fibrillation | CPT/HCPCS: 85610 ==

== ENCOUNTER 2020-01-04 07:29 | Outpatient (CLI) | payer MEDICARE, OTHER | END 2020-01-04 23:59 | disposition home or self-care (01) | LOC: LAB.N 07:29 | PROVIDERS: ATTEND Family Medicine | DX: Z79.01 Long term (current) use of anticoagulants (principal); I48.91 Unspecified atrial fibrillation | CPT/HCPCS: 85610 ==

== ENCOUNTER 2020-01-18 10:16 | Outpatient (CLI) | payer MEDICARE, OTHER | END 2020-01-18 23:59 | disposition home or self-care (01) | LOC: LAB.N 10:16 | PROVIDERS: ATTEND Family Medicine | DX: I48.91 Unspecified atrial fibrillation (principal); Z79.01 Long term (current) use of anticoagulants | CPT/HCPCS: 85610 ==

== ENCOUNTER 2020-01-25 09:41 | Outpatient (CLI) | payer MEDICARE, OTHER | END 2020-01-25 23:59 | disposition home or self-care (01) | LOC: LAB.N 09:41 | PROVIDERS: ATTEND Family Medicine | DX: I48.91 Unspecified atrial fibrillation (principal); Z79.01 Long term (current) use of anticoagulants | CPT/HCPCS: 85610 ==

== ENCOUNTER 2020-02-08 08:33 | Outpatient (CLI) | payer MEDICARE, OTHER | END 2020-02-08 23:59 | disposition home or self-care (01) | LOC: LAB.N 08:33 | PROVIDERS: ATTEND Family Medicine | DX: I48.91 Unspecified atrial fibrillation (principal); Z79.01 Long term (current) use of anticoagulants | CPT/HCPCS: 85610 ==

== ENCOUNTER 2020-02-15 09:00 | Outpatient (CLI) | payer MEDICARE, OTHER ==
[2020-02-15 12:13] LABS: INR 2.1 (0.8-1.2); PT - PROTHROMBIN TIME 22.5 secs (9.9-12.6)
== END 2020-02-15 23:59 | disposition home or self-care (01) ==
LOC: LAB.WCP 09:00
PROVIDERS: ATTEND Family Medicine
DX: I48.91 Unspecified atrial fibrillation (principal); Z79.01 Long term (current) use of anticoagulants
CPT/HCPCS: 36415; 85610

== ENCOUNTER 2020-04-04 08:00 | Outpatient (CLI) | payer MEDICARE, OTHER | END 2020-04-04 23:59 | disposition home or self-care (01) | LOC: LAB.WCP 08:00 | PROVIDERS: ATTEND Family Medicine | DX: I48.91 Unspecified atrial fibrillation (principal); Z79.01 Long term (current) use of anticoagulants ==

== ENCOUNTER 2020-04-18 08:00 | Outpatient (CLI) | payer MEDICARE, OTHER | END 2020-04-18 23:59 | disposition home or self-care (01) | LOC: LAB.WCP 08:00 | PROVIDERS: ATTEND Family Medicine | DX: I48.91 Unspecified atrial fibrillation (principal); Z79.01 Long term (current) use of anticoagulants ==

== ENCOUNTER 2020-05-02 08:00 | Outpatient (CLI) | payer MEDICARE, OTHER ==
[2020-05-02 18:57] LABS: BASOPHILS % (AUTO) 0.3 %; EOSINOPHILS # (AUTO) 0.1 10^3/uL (0.0-0.7); EOSINOPHILS % (AUTO) 0.7 %; LYMPHOCYTES # (AUTO) 2.2 10^3/uL (1.5-3.5); LYMPHOCYTES % (AUTO) 30.4 %; MEAN CORPUSCULAR HEMOGLOBIN 32.6 pg (27.0-31.0); MEAN CORPUSCULAR VOLUME 98.8 fL (80.0-94.0); MEAN PLATELET VOLUME 10.3 fL (7.4-11.4); MONOCYTES # (AUTO) 0.6 10^3/uL (0.0-1.0); MONOCYTES % (AUTO) 7.8 %; NEUTROPHILS # (AUTO) 4.3 10^3/uL (1.5-6.6); NEUTROPHILS % (AUTO) 60.2 %; PLT - PLATELET COUNT 196 10^3/uL (130-450); RED BLOOD COUNT 4.29 10^6/uL (4.70-6.10); WHITE BLOOD COUNT 7.1 x10^3/uL (4.8-10.8)
[2020-05-02 19:15] LABS: HB2 TOTAL 14.4 g/dL; HEMOGLOBIN A1C 0.8 g/dL; HEMOGLOBIN A1C % 7.2 % (4.6-6.2)
[2020-05-02 19:31] LABS: ALBUMIN 3.7 g/dL (3.2-5.5); ALBUMIN/GLOBULIN RATIO 1.2 (1.0-2.2); ALKALINE PHOSPHATASE 54 IU/L (42-121); ALT ALANINE AMINOTRANSFERASE 18 IU/L (10-60); AST ASPARTATE AMINOTRANSFERASE 19 IU/L (10-42); BILIRUBIN,TOTAL 0.9 mg/dL (0.2-1.0); BUN - BLOOD UREA NITROGEN 18 mg/dL (6-20); CHOL/HDL RATIO 3.4 (<5.0); CHOLESTEROL 120 mg/dL; HDL CHOLESTEROL 35 mg/dL; LDL CHOLESTEROL,CALCULATED 41 mg/dL; LDL/HDL RATIO 1.2 (<3.6); TOTAL PROTEIN 6.8 g/dL (6.7-8.2); VLDL CHOLESTEROL 44 mg/dL
[2020-05-02 19:33] LABS: CREATININE,URINE 122.3 mg/dL; MICROALBUM/CREATININE RATIO,UR 8.2 ug/mg (<30.0)
[2020-05-02 19:42] LABS: CALCIUM 8.6 mg/dL (8.5-10.3); CARBON DIOXIDE - CO2 27 mmol/L (21-32); CHLORIDE 105 mmol/L (101-111); GLUCOSE 152 mg/dL (70-100); SODIUM 139 mmol/L (135-145)
== END 2020-05-02 23:59 | disposition home or self-care (01) ==
LOC: LAB.WCP 08:00
PROVIDERS: ATTEND Family Medicine
DX: I10 Essential (primary) hypertension (principal); E11.51 Type 2 diabetes mellitus with diabetic peripheral angiopathy without gangrene; E87.6 Hypokalemia; E78.5 Hyperlipidemia, unspecified; I48.91 Unspecified atrial fibrillation
CPT/HCPCS: 36415; 80053; 80061; 82043; 82570; 83036; 83721; 84443; 85025

== ENCOUNTER 2020-07-10 08:00 | Outpatient (CLI) | payer MEDICARE, OTHER | END 2020-07-10 23:59 | disposition home or self-care (01) | LOC: LAB.WCP 08:00 | PROVIDERS: ATTEND Family Medicine | DX: I48.91 Unspecified atrial fibrillation (principal); Z79.01 Long term (current) use of anticoagulants ==

== ENCOUNTER 2020-07-31 08:00 | Outpatient (CLI) | payer MEDICARE, OTHER | END 2020-07-31 23:59 | disposition home or self-care (01) | LOC: LAB.WCP 08:00 | PROVIDERS: ATTEND Nurse Practitioner Family | DX: Z79.01 Long term (current) use of anticoagulants (principal) ==

== ENCOUNTER 2020-08-14 08:00 | Outpatient (CLI) | payer MEDICARE, OTHER | END 2020-08-14 23:59 | disposition home or self-care (01) | LOC: LAB.WCP 08:00 | PROVIDERS: ATTEND Family Medicine | DX: Z79.01 Long term (current) use of anticoagulants (principal) ==

== ENCOUNTER → 2020-10-02 | Outpatient (CLI) | payer MEDICARE, OTHER | LOC: LAB.WCP 08:00 | PROVIDERS: ATTEND Family Medicine | DX: Z79.01 Long term (current) use of anticoagulants (principal) ==

== ENCOUNTER 2020-10-09 08:00 | Outpatient (CLI) | payer MEDICARE, OTHER | END 2020-10-09 23:59 | disposition home or self-care (01) | LOC: LAB.WCP 08:00 | PROVIDERS: ATTEND Family Medicine | DX: Z79.01 Long term (current) use of anticoagulants (principal) ==

== ENCOUNTER 2020-10-23 08:00 | Outpatient (CLI) | payer MEDICARE, OTHER | END 2020-10-23 23:59 | disposition home or self-care (01) | LOC: LAB.WCP 08:00 | PROVIDERS: ATTEND Family Medicine | DX: Z79.01 Long term (current) use of anticoagulants (principal) ==

== ENCOUNTER 2020-11-13 08:00 | Outpatient (CLI) | payer MEDICARE, OTHER | END 2020-11-13 23:59 | disposition home or self-care (01) | LOC: LAB.WCP 08:00 | PROVIDERS: ATTEND Family Medicine | DX: Z79.01 Long term (current) use of anticoagulants (principal) ==

== ENCOUNTER 2020-11-22 08:00 | Outpatient (CLI) | payer MEDICARE, OTHER | END 2020-11-22 23:59 | disposition home or self-care (01) | LOC: LAB.WCP 08:00 | PROVIDERS: ATTEND Nurse Practitioner Family | DX: Z79.01 Long term (current) use of anticoagulants (principal) ==

== ENCOUNTER 2020-12-04 08:00 | Outpatient (CLI) | payer MEDICARE, OTHER | END 2020-12-04 23:59 | disposition home or self-care (01) | LOC: LAB.WCP 08:00 | PROVIDERS: ATTEND Family Medicine | DX: Z79.01 Long term (current) use of anticoagulants (principal) ==

== ENCOUNTER 2020-12-11 08:00 | Outpatient (CLI) | payer MEDICARE, OTHER | END 2020-12-11 23:59 | disposition home or self-care (01) | LOC: LAB.WCP 08:00 | PROVIDERS: ATTEND Family Medicine | DX: Z79.01 Long term (current) use of anticoagulants (principal) ==

== ENCOUNTER 2020-12-25 10:23 | Outpatient (CLI) | payer MEDICARE, OTHER ==
[2020-12-25 13:38] LABS: BASOPHILS % (AUTO) 0.5 %; EOSINOPHILS # (AUTO) 0.1 10^3/uL (0.0-0.7); HGB - HEMOGLOBIN 14.1 g/dL (14.0-18.0); LYMPHOCYTES # (AUTO) 1.8 10^3/uL (1.5-3.5); MEAN CORPUSCULAR HGB CONC 33.3 g/dL (32.0-36.0); MEAN CORPUSCULAR VOLUME 99.1 fL (80.0-94.0); MEAN PLATELET VOLUME 9.9 fL (7.4-11.4); MONOCYTES # (AUTO) 0.5 10^3/uL (0.0-1.0); MONOCYTES % (AUTO) 7.5 %; NEUTROPHILS # (AUTO) 3.9 10^3/uL (1.5-6.6); NEUTROPHILS % (AUTO) 62.2 %; PLT - PLATELET COUNT 215 10^3/uL (130-450); RED BLOOD COUNT 4.27 10^6/uL (4.70-6.10); RED CELL DISTRIBUTION WIDTH 12.4 % (12.0-15.0); WHITE BLOOD COUNT 6.2 x10^3/uL (4.8-10.8)
[2020-12-25 13:46] LABS: CREATININE,URINE 114.7 mg/dL; MICROALBUM/CREATININE RATIO,UR 29.6 ug/mg (<30.0); MICROALBUMIN,URINE 3.4 mg/dL (0-300.0)
[2020-12-25 13:57] LABS: ALBUMIN 3.8 g/dL (3.2-5.5); ALBUMIN/GLOBULIN RATIO 1.2 (1.0-2.2); ALKALINE PHOSPHATASE 79 IU/L (42-121); ALT ALANINE AMINOTRANSFERASE 36 IU/L (10-60); AST ASPARTATE AMINOTRANSFERASE 25 IU/L (10-42); BILIRUBIN,TOTAL 0.7 mg/dL (0.2-1.0); BUN - BLOOD UREA NITROGEN 16 mg/dL (6-20); CALCIUM 8.9 mg/dL (8.5-10.3); CARBON DIOXIDE - CO2 28 mmol/L (21-32); CHLORIDE 99 mmol/L (101-111); CHOL/HDL RATIO 3.3 (<5.0); CHOLESTEROL 126 mg/dL; GLUCOSE 195 mg/dL (70-100); HDL CHOLESTEROL 38 mg/dL; LDL CHOLESTEROL,CALCULATED 46 mg/dL; LDL/HDL RATIO 1.2 (<3.6); VLDL CHOLESTEROL 42 mg/dL
[2020-12-25 14:44] LABS: HEMOGLOBIN A1c% 7.6 % (4.27-6.07)
== END 2020-12-25 10:24 | disposition home or self-care (01) ==
LOC: LAB.N 10:23
PROVIDERS: ATTEND Family Medicine
DX: Z00.00 Encounter for general adult medical examination without abnormal findings (principal); I10 Essential (primary) hypertension; E78.5 Hyperlipidemia, unspecified; E11.9 Type 2 diabetes mellitus without complications; C61 Malignant neoplasm of prostate; D64.9 Anemia, unspecified
CPT/HCPCS: 36415; 80053; 80061; 82043; 82570; 83036; 83721; 84153; 84403; 84443; 85025

== ENCOUNTER 2021-01-01 08:00 | Outpatient (CLI) | payer MEDICARE, OTHER | END 2021-01-01 23:59 | disposition home or self-care (01) | LOC: LAB.WCP 08:00 | PROVIDERS: ATTEND Family Medicine | DX: Z79.01 Long term (current) use of anticoagulants (principal); I48.91 Unspecified atrial fibrillation ==

== ENCOUNTER 2021-06-23 09:45 | Outpatient (CLI) | payer MEDICARE, OTHER ==
[2021-06-23 12:40] LABS: CALCIUM 8.7 mg/dL (8.5-10.3); CREATININE 0.9 mg/dL (0.6-1.2); POTASSIUM 3.8 mmol/L (3.5-5.0)
[2021-06-23 12:46] LABS: ESTIMATED AVERAGE GLUCOSE 151 mg/dL (70-100); HEMOGLOBIN A1c% 6.9 % (4.27-6.07)
[2021-06-23 12:57] LABS: CREATININE,URINE 157.2 mg/dL; MICROALBUM/CREATININE RATIO,UR 20.4 ug/mg (<30.0); MICROALBUMIN,URINE 3.2 mg/dL (0-300.0)
== END 2021-06-23 23:59 | disposition home or self-care (01) ==
LOC: LAB.WCP 09:45
PROVIDERS: ATTEND Family Medicine
DX: I10 Essential (primary) hypertension (principal); E11.9 Type 2 diabetes mellitus without complications
CPT/HCPCS: 36415; 80048; 82043; 82570; 83036

== ENCOUNTER 2021-07-05 13:38 | Inpatient (IN) | payer MEDICARE, OTHER ==
[2021-07-05 14:11] LABS: BASOPHILS % (AUTO) 0.1 %; EOSINOPHILS % (AUTO) 0.1 %; HCT - HEMATOCRIT 42.4 % (42.0-52.0); HGB - HEMOGLOBIN 14.3 g/dL (14.0-18.0); LYMPHOCYTES # (AUTO) 1.6 10^3/uL (1.5-3.5); LYMPHOCYTES % (AUTO) 11.1 %; MEAN CORPUSCULAR HEMOGLOBIN 32.8 pg (27.0-31.0); MEAN CORPUSCULAR HGB CONC 33.7 g/dL (32.0-36.0); MEAN CORPUSCULAR VOLUME 97.2 fL (80.0-94.0); MEAN PLATELET VOLUME 9.6 fL (7.4-11.4); MONOCYTES # (AUTO) 0.7 10^3/uL (0.0-1.0); MONOCYTES % (AUTO) 4.5 %; NEUTROPHILS % (AUTO) 83.8 %; PLT - PLATELET COUNT 196 10^3/uL (130-450); RED BLOOD COUNT 4.36 10^6/uL (4.70-6.10); RED CELL DISTRIBUTION WIDTH 12.6 % (12.0-15.0); WHITE BLOOD COUNT 14.3 x10^3/uL (4.8-10.8)
[2021-07-05 14:20] LABS: BILIRUBIN,URINE NEGATIVE (NEGATIVE); GLUCOSE, URINE (UA) NEGATIVE (NEGATIVE); KETONES,URINE (UA) NEGATIVE (NEGATIVE); LEUKOCYTE ESTERASE, URINE NEGATIVE (NEGATIVE); NITRITE,URINE NEGATIVE (NEGATIVE); OCCULT BLOOD,URINE NEGATIVE (NEGATIVE); PROTEIN,URINE NEGATIVE (NEGATIVE); UROBILINOGEN,URINE 1 (NORMAL) E.U./dL (NORMAL)
[2021-07-05 14:21] LABS: ALBUMIN 4.1 g/dL (3.2-5.5); ALBUMIN/GLOBULIN RATIO 1.4 (1.0-2.2); BILIRUBIN,TOTAL 1.1 mg/dL (0.2-1.0); CALCIUM 8.5 mg/dL (8.5-10.3); CREATININE 0.8 mg/dL (0.6-1.2); POTASSIUM 3.6 mmol/L (3.5-5.0); TOTAL PROTEIN 7.1 g/dL (6.7-8.2)
--- NOTE | 2021-07-05 14:32 | ED Physician Documentation ---
History of Present Illness - Stated complaint Stated Complaint: ABD PX - Chief complaint Chief Complaint: Abd Pain - History obtained from History obtained from: Patient, Family - History of Present Illness Timing: Today, How many hours ago (1.5) Pain level max: 4 Pain level now: 3 - Additonal information Additional information: 81 year old male with increasing abd distention over the past week. Today developed lower abd pain. Nothing makes it better or worse. Pain is a 3-4 out of 10. No vomiting. No diarrhea. Does have a history of diverticulosis and diverticulitis. No fevers. No chills. Review of Systems Constitutional: denies: Fever, Chills Respiratory: denies: Cough GI: denies: Nausea, Vomiting, Diarrhea, Hematemesis, Bloody / black stool : denies: Dysuria, Frequency, Hesitancy Skin: denies: Rash PD PAST MEDICAL HISTORY - Past Medical History Cardiovascular: Hypertension Respiratory: None Endocrine/Autoimmune: Type 2 diabetes GI: GERD : Frequency Derm: None - Past Surgical History Past Surgical History: Yes General: EGD, Colonoscopy Neuro: Craniotomy HEENT: Cataracts - Present Medications Home Medications: Ambulatory Orders Medication Instructions Recorded Confirmed Metformin HCl [Metformin HCl ER] 750 mg PO BID 04/19/13 07/05/21 Cyanocobalamin [Vitamin B-12] 500 mcg PO DAILY 05/09/14 07/05/21 Pnv No.95/Ferrous Fum/Folic AC 1 tab PO DAILY 05/09/14 07/05/21 [ Tablet] Ascorbic Acid [Vitamin C] 500 mg PO BID 03/11/16 07/05/21 Metoprolol Tartrate [Lopressor] 50 mg PO BID 03/11/16 07/05/21 hydroCHLOROthiazide 25 mg PO DAILY 03/11/16 07/05/21 [Hydrochlorothiazide] Ferrous Gluconate [Iron] 240 mg PO DAILY PM 12/09/18 07/05/21 Rosuvastatin Calcium [Crestor] 5 mg PO DAILY 12/09/18 07/05/21 Rivaroxaban [Xarelto] 20 mg PO DAILY 07/05/21 07/05/21 - Allergies Allergies/Adverse Reactions: Allergies Allergy/AdvReac Type Severity Reaction Status Date / Time ciprofloxacin [From Cipro] Allergy Mild Hives Verified 07/05/21 13:49 ciprofloxacin HCl * Allergy Mild Hives Verified 07/05/21 13:49 [From Cipro] - Social History Does the pt smoke?: No Smoking Status: Never smoker Does the pt drink ETOH?: No Does the pt have substance abuse?: No - POLST POLST Status: Full Code PD ED PE NORMAL - Vitals Vital signs reviewed: Yes - General General: Alert and oriented X 3, No acute distress, Well developed/nourished - HEENT HEENT: PERRL, Moist mucous membranes - Neck Neck: Supple, no meningeal sign - Cardiac Cardiac: RRR, Strong equal pulses - Respiratory Respiratory: No respiratory distress, Clear bilaterally - Abdomen Abdomen: Soft, Non tender, Other (moderate distention) - Back Back: No CVA TTP, No spinal TTP - Derm Derm: Warm and dry - Extremities Extremities: No edema - Neuro Neuro: Alert and oriented X 3 - Psych Psych: Normal mood, Normal affect Results - Vitals Vitals: Vital Signs - 24 hr 07/05/21 07/05/21 13:42 17:00 Temperature 37.0 C Heart Rate 78 93 Respiratory 15 17 Rate Blood Pressure 151/68 H 143/80 H O2 Saturation 98 95 Oxygen O2 Source Room air - Labs Labs: Laboratory Tests 07/05/21 07/05/21 07/05/21 14:00 14:00 14:14 WBC 14.3 H RBC 4.36 L Hgb 14.3 Hct 42.4 MCV 97.2 H MCH 32.8 H MCHC 33.7 RDW 12.6 Plt Count 196 MPV 9.6 Neut # (Auto) 12.0 H Lymph # (Auto) 1.6 Izard # (Auto) 0.7 Eos # (Auto) 0.0 Baso # (Auto) 0.0 Absolute Nucleated RBC 0.00 Nucleated RBC % 0.0 Sodium 141 Potassium 3.6 Chloride 103 Carbon Dioxide 27 Anion Gap 11.0 BUN 14 Creatinine 0.8 Estimated GFR (MDRD) 93 Glucose 180 H Calcium 8.5 Total Bilirubin 1.1 H AST 20 ALT 23 Alkaline Phosphatase 72 Total Protein 7.1 Albumin 4.1 Globulin 3.0 Albumin/Globulin Ratio 1.4 Lipase 29 Urine Color YELLOW Urine Clarity CLEAR Urine pH 6.0 Ur Specific [place] 1.020 Urine Protein NEGATIVE Urine Glucose (UA) NEGATIVE Urine Ketones NEGATIVE Urine Occult Blood NEGATIVE Urine Nitrite NEGATIVE Urine Bilirubin NEGATIVE Urine Urobilinogen 1 (NORMAL) Ur Leukocyte Esterase NEGATIVE Ur Microscopic Review NOT INDICATED Urine Culture Comments NOT INDICATED Nasal Adenovirus (PCR) Nasal B. parapertussis DNA (PCR) Nasal Coronavir 229E PCR Nasal Coronavir HKU1 PCR Nasal Coronavir NL63 PCR Nasal Coronavir OC43 PCR Nasal Enterovir/Rhinovir PCR Nasal Influenza B PCR Nasal Influenza A PCR Nasal Parainfluen 1 PCR Nasal Parainfluen 2 PCR Nasal Parainfluen 3 PCR Nasal Parainfluen 4 PCR Nasal RSV (PCR) Nasal B.pertussis DNA PCR Nasal C.pneumoniae (PCR) Bill Human Metapneumo PCR Nasal M.pneumoniae (PCR) Nasal SARS-CoV-2 (PCR) 07/05/21 16:54 WBC RBC Hgb Hct MCV MCH MCHC RDW Plt Count MPV Neut # (Auto) Lymph # (Auto) Izard # (Auto) Eos # (Auto) Baso # (Auto) Absolute Nucleated RBC Nucleated RBC % Sodium Potassium Chloride Carbon Dioxide Anion Gap BUN Creatinine Estimated GFR (MDRD) Glucose Calcium Total Bilirubin AST ALT Alkaline Phosphatase Total Protein Albumin Globulin Albumin/Globulin Ratio Lipase Urine Color Urine Clarity Urine pH Ur Specific [place] Urine Protein Urine Glucose (UA) Urine Ketones Urine Occult Blood Urine Nitrite Urine Bilirubin Urine Urobilinogen Ur Leukocyte Esterase Ur Microscopic Review Urine Culture Comments Nasal Adenovirus (PCR) NOT DETECTED Nasal B. parapertussis DNA (PCR) NOT DETECTED Nasal Coronavir 229E PCR NOT DETECTED Nasal Coronavir HKU1 PCR NOT DETECTED Nasal Coronavir NL63 PCR NOT DETECTED Nasal Coronavir OC43 PCR NOT DETECTED Nasal Enterovir/Rhinovir PCR NOT DETECTED Nasal Influenza B PCR NOT DETECTED Nasal Influenza A PCR NOT DETECTED Nasal Parainfluen 1 PCR NOT DETECTED Nasal Parainfluen 2 PCR NOT DETECTED Nasal Parainfluen 3 PCR NOT DETECTED Nasal Parainfluen 4 PCR NOT DETECTED Nasal RSV (PCR) NOT DETECTED Nasal B.pertussis DNA PCR NOT DETECTED Nasal C.pneumoniae (PCR) NOT DETECTED Bill Human Metapneumo PCR NOT DETECTED Nasal M.pneumoniae (PCR) NOT DETECTED Nasal SARS-CoV-2 (PCR) NOT DETECTED - Rads (name of study) CT abd/pelvis Radiology: Final report received, EMP read contemporaneously, See rad report PD MEDICAL DECISION MAKING - ED course Complexity details: reviewed results, re-evaluated patient, considered differential, d/w patient, d/w validation consultant ED course: Patient with a intra-abdominal perforation with a 3.6 cm early abscess. Discussed the case with Dr. Burnham, general surgery who recommends transfer. Attempted to transfer the patient to [facility], [facility] and [facility]. There are no beds available at any of these facilities. There are waiting list at all the facilities. He was placed on a waiting list. Given that we are unable to transfer the patient, we will place him in the hospital here for IV antibiotics. This document was made in part using voice recognition software. While efforts are made to proofread this document, sound alike and grammatical errors may occur. IMPRESSION: Extraluminal gas and fluid can be seen just inferior to the ligament of Treitz, with where there is a presumed perforation. Early abscess formation can be seen. Status post left nephrectomy, without abnormal soft tissue within the left nephrectomy bed. 1.3 cm liver lesion, which may represent a complex cyst, hemangioma, or (less likely) a metastatic focus. Incidental note is made of: Hiatal hernia Gallstones Atelectatic calcification, including at least moderate coronary artery calcification. Simple appearing right renal cyst Fat-containing periumbilical hernia Relatively prominent lumbar spine degenerative change Prostate seed implants Departure - Departure Disposition: [facility] DC/Xfer Clinical Impression: Bowel perforation, Intra-abdominal abscess, Anticoagulant long-term use Condition: Stable Discharge Date/Time: 07/05/21 18:16
[2021-07-05 14:37] LABS: CLARITY,URINE CLEAR (CLEAR)
[2021-07-05] MEDS ORDERED: IOVERSOL 320 50 ML VIAL ONE (14:38)
[2021-07-05] MEDS ORDERED: IOPAMIDOL-300 50 ML VIAL ONE (14:38)
[2021-07-05] MEDS ORDERED: ONDANSETRON 4 MG/2 ML VIAL IVP STA (16:22)
[2021-07-05] MEDS ORDERED: PIPERACILLIN/TAZOBACTAM 3.375 GM in SODIUM CHLORIDE 0.9% MINIBAG 100 ML IV STA (16:22)
[2021-07-05] MEDS ORDERED: MORPHINE 2 MG/ML CARPUJECT IVP STA (16:22)
--- NOTE | 2021-07-05 16:22 | CT Report ---
PROCEDURE: Abdomen/Pelvis W INDICATIONS: lower abd pain, abd distention CONTRAST: IV CONTRAST: Isovue 300 ml: 45 PO CONTRAST: Optiray 320 ml50 TECHNIQUE: After the administration of IV and a small amount of oral contrast, 5 mm thick sections acquired from the diaphragms to the symphysis. 5 mm thick coronal and sagittal reformats were acquired. For radi ation dose reduction, the following was used: automated exposure control, adjustment of mA and/or kV according to patient size. COMPARISON: None. FINDINGS: Image quality: There is an injector malfunction, the patient receiving approximately 50 cc of contras t and scanned with a 122nd delay. ABDOMEN: Lung bases: Lung bases are clear. Heart size is normal. At least moderate coronary artery calcific ation is seen. A small hiatal hernia is incidentally noted. Solid organs: Liver demonstrates normal size. Within the right liver, there is a low-density lesion seen, as on series 7 image 27 that measures 22 Hounsfield units and 1.3 cm. Gallbladder demonstrates gallstones within its lumen. Biliary system is non dilated. Pancreas enhan jose roberto normally. No adrenal nodules. The left kidney has been removed. No abnormal soft tissue is seen within the left nephrectomy bed. Th e right kidney is unremarkable, without hydronephrosis. The inferior pole of the right kidney, there is a simple appearing cyst seen that measures 2.8 cm. Peritoneum and bowel: There is a focus of extraluminal gas seen immediately inferior to the ligament of Treitz, which measures 3.6 cm. Surrounding abnormal free fluid and inflammatory change can be seen . No dilated loops of small bowel are seen. No free air or significant free fluid can be seen elsewhere . No significant colonic abnormality can be seen. A normal appendix is incidentally noted. No signif icant colonic diverticulosis can be seen. Nodes and vessels: No retroperitoneal or mesenteric adenopathy by size criteria. Aorta and inferior vena cava are normal in size. Atherosclerotic calcification is seen. Miscellaneous: A mild fat-containing periumbilical hernia is seen. PELVIS: Genitourinary: Bladder wall thickness is normal. Prostate seed implants can be seen. Miscellaneous: No inguinal hernias or adenopathy. Bones: No suspicious bony lesions. No vertebral body compression fractures. Relatively prominent l umbar spine degenerative changes are seen. IMPRESSION: Extraluminal gas and fluid can be seen just inferior to the ligament of Treitz, with whe re there is a presumed perforation. Early abscess formation can be seen. Status post left nephrectomy, without abnormal soft tissue within the left nephrectomy bed. 1.3 cm liver lesion, which may represent a complex cyst, hemangioma, or (less likely) a metastatic fo cus. Incidental note is made of: Hiatal hernia Gallstones Atelectatic calcification, including at least moderate coronary artery calcification. Simple appearing right renal cyst Fat-containing periumbilical hernia Relatively prominent lumbar spine degenerative change Prostate seed implants Note: Case discussed by telephone with Dr. Aviles at 3:19 PM [place] time on 07/05/2021 Reviewed by: Jonatan Zavala MD on 07/05/2021 3:21 PM AKLUCIANA Approved by: Jonatan Zavala MD on 07/05/2021 3:21 PM AKLUCIANA Station ID: [id number]
[2021-07-05] MEDS ORDERED: SODIUM CHLORIDE 0.9% 1,000 ML IV STA (16:35)
[2021-07-05] MEDS ORDERED: ONDANSETRON 4 MG/2 ML VIAL IVP PRN (17:27)
[2021-07-05] MEDS ORDERED: HYDROmorphone 0.5 MG/0.5 ML SYRINGE IVP PRN (17:27)
[2021-07-05] MEDS ORDERED: ACETAMINOPHEN 1,000 MG/100 ML 100 ML IV PRN (17:33)
[2021-07-05 17:52] LABS: B. PARAPERTUSSIS- RESP PCR PAN NOT DETECTED; B. PERTUSSIS- RESP PCR PANEL NOT DETECTED; C. PNEUMONIAE- RESP PCR PANEL NOT DETECTED; CORONAVIRUS 229E-RESP PCR NOT DETECTED; CORONAVIRUS HKU1-RESP PCR NOT DETECTED; CORONAVIRUS NL63-RESP PCR NOT DETECTED; CORONAVIRUS OC43-RESP PCR NOT DETECTED; HUMAN METAPNEUMOVIRUS NOT DETECTED; INFLUENZA A- RESP PCR PANEL NOT DETECTED; INFLUENZA B - RESP PCR PANEL NOT DETECTED; M. PNEUMONIAE- RESP PCR PANEL NOT DETECTED; PARAINFLUENZA VIRUS 1 NOT DETECTED; PARAINFLUENZA VIRUS 2 NOT DETECTED; PARAINFLUENZA VIRUS 3 NOT DETECTED; PARAINFLUENZA VIRUS 4 NOT DETECTED; RHINOVIRUS/ENTEROVIRUS NOT DETECTED; RSV- RESP PCR PANEL NOT DETECTED; SARS-CoV-2 -RESP PCR PANEL NOT DETECTED
[2021-07-05] MEDS: LACTATED RINGERS 1,000 ML IV SCH (19:12)
[2021-07-05] MEDS: metroNIDAZOLE 500 MG/100 ML 500 MG/100 ML BAG IV SCH (19:18)
[2021-07-05] MEDS: METOPROLOL TARTRATE 50 MG TABLET PO SCH (21:06)
[2021-07-06] MEDS: PIPERACILLIN/TAZOBACTAM 3.375 GM in SODIUM CHLORIDE 0.9% MINIBAG 100 ML IV SCH ×3 (01:18→16:08)
[2021-07-06] MEDS: SODIUM CHLORIDE FLUSH 0.9% 10 ML SYRINGE IVP SCH ×3 (01:19→16:09)
[2021-07-06] MEDS: metroNIDAZOLE 500 MG/100 ML 500 MG/100 ML BAG IV SCH (02:51)
[2021-07-06] MEDS: LACTATED RINGERS 1,000 ML IV SCH ×2 (05:46→15:42)
[2021-07-06 06:22] LABS: BASOPHILS % (AUTO) 0.3 %; EOSINOPHILS # (AUTO) 0.2 10^3/uL (0.0-0.7); EOSINOPHILS % (AUTO) 1.6 %; HCT - HEMATOCRIT 40.8 % (42.0-52.0); HGB - HEMOGLOBIN 13.9 g/dL (14.0-18.0); LYMPHOCYTES # (AUTO) 1.5 10^3/uL (1.5-3.5); LYMPHOCYTES % (AUTO) 10.5 %; MEAN CORPUSCULAR HEMOGLOBIN 33.1 pg (27.0-31.0); MEAN CORPUSCULAR HGB CONC 34.1 g/dL (32.0-36.0); MEAN CORPUSCULAR VOLUME 97.1 fL (80.0-94.0); MONOCYTES # (AUTO) 0.4 10^3/uL (0.0-1.0); MONOCYTES % (AUTO) 2.5 %; NEUTROPHILS # (AUTO) 11.9 10^3/uL (1.5-6.6); NEUTROPHILS % (AUTO) 84.5 %; PLT - PLATELET COUNT 155 10^3/uL (130-450)
[2021-07-06 06:35] LABS: ALBUMIN 3.4 g/dL (3.2-5.5); ALBUMIN/GLOBULIN RATIO 1.1 (1.0-2.2); ALKALINE PHOSPHATASE 54 IU/L (42-121); ALT ALANINE AMINOTRANSFERASE 19 IU/L (10-60); AST ASPARTATE AMINOTRANSFERASE 16 IU/L (10-42); BILIRUBIN,TOTAL 1.3 mg/dL (0.2-1.0); BUN - BLOOD UREA NITROGEN 17 mg/dL (6-20); CALCIUM 8.1 mg/dL (8.5-10.3); CARBON DIOXIDE - CO2 26 mmol/L (21-32); CHLORIDE 102 mmol/L (101-111); CREATININE 1.2 mg/dL (0.6-1.2); GFR - MDRD 58 (>89); GLUCOSE 168 mg/dL (70-100); IONIZED CALCIUM IF INDICATED YES; POTASSIUM 3.2 mmol/L (3.5-5.0); SODIUM 140 mmol/L (135-145); TOTAL PROTEIN 6.6 g/dL (6.7-8.2)
[2021-07-06 06:38] LABS: CALCIUM, IONIZED 0.98 mmol/L (1.15-1.33); VBG PH 7.402 (7.31-7.41)
--- NOTE | 2021-07-06 08:09 | PHARMACY PROGRESS NOTE ---
- Best Possible Medication History Admit Date and Time: 07/05/21 1722 Processed by: Nursing Medication History completed: Yes Patient Interview: Completed (MED REC COMPLETED BY NURSING) As the person ultimately responsible for medication therapy, providers are able to order a medication from an existing home medication list in [facility] via the "Reconcile Routine" prior to Confirmation of that medication by systems support specialist. Such practice is discouraged except when the physician, in their clinical judgment, deems that a medical need exists for a medication without regard to previous use.
[2021-07-06] MEDS ORDERED: ENOXAPARIN 40 MG/0.4 ML SYRINGE SUBQ SCH (09:00)
[2021-07-06] MEDS ORDERED: IOPAMIDOL-300 50 ML VIAL IVP ONE (10:33)
[2021-07-06] MEDS ORDERED: IOVERSOL 320 50 ML VIAL PO ONE (10:36)
[2021-07-06] MEDS: METOPROLOL TARTRATE 50 MG TABLET PO SCH ×2 (11:01→21:11)
[2021-07-06] MEDS: hydroCHLOROthiazide 25 MG TABLET PO SCH (11:02)
--- NOTE | 2021-07-06 12:41 | SURGERY HX AND PHYSICAL(T) ---
Surgical History & Physical - Chief Complaint/HPI Chief Complaint: Abdominal pain History of Present Illness: Delightful 81-year-old gentleman who is the [id number] of one of our former Associates. He reports that he was in his usual state of health yesterday afternoon when he went outside and was suddenly caught off guard by a pain in his abdomen. He says it was not very strong but it felt abnormal. He decided to go back inside and sit down and see if it would go away. When it did not go away and seem to get stronger, he called his [id number] and she transported him here to the emergency room. He denies any similar pains as this in the past. He denies any sweating. He has not had any nausea or vomiting other than a short bout of nausea in the emergency room. He denies any blood in his stool. He does not think he has had any change in his bowel habits. He denies any new con stipation or diarrhea. He has been eating normally.His past medical history is significant for left renal cell carcinoma and a left nephrectomy. He also has hypertension, dyslipidemia, and type 2 diabetes.He tells me that he likes to drink a little whiskey and would love it if we would let him do that while he is in the hospital.He is a [place] man and tells me he is from [facility]. He is alert and oriented x3 and can tell me all about his family members living in that general area. He also has good recall of the events of his illness as well as what is going on around him currently.Since admission, he says his pain is essentially resolved. He denies any pain currently.He did not eat any of his breakfast as he says he is not a fan of hospital food.His dsdjtzmk-qh-pgg, Zuleima, tells me that they have been concerned a bit about his memory in the last week or so. She says he had a walked into the family room and ask questions regarding the "remodel". They are not remodeling their home.This is been somewhat concerning for her and she feels like it is gotten more significant over the week. 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 Cardiovascular: Hypertension, Atrial fibrillation Respiratory: None Skin: None Endocrine/Autoimmune: Type 2 diabetes Gastrointestinal: GERD Urinary: Frequency General: EGD, Colonoscopy Urologic: Nephrectomy (Historical left nephrectomy for malignancy), Prostatic surgery (Seed implants) Neurologic: Craniotomy (Benign tumor) Eyes Ears Nose Throat (EENT): Cataracts Smoking Status: Never smoker Does the pt drink ETOH?: Yes Frequency: Daily Number: 2 Amount/day: Drinks/day Does the pt have substance abuse?: No - Home Meds and Allergies Home Medications: Metformin HCl [Metformin HCl ER] 750 mg PO BID 04/19/13 Cyanocobalamin [Vitamin B-12] 500 mcg PO DAILY 05/09/14 Pnv No.95/Ferrous Fum/Folic AC [ Tablet] 1 tab PO DAILY 05/09/14 Ascorbic Acid [Vitamin C] 500 mg PO BID 03/11/16 Metoprolol Tartrate [Lopressor] 50 mg PO BID 03/11/16 hydroCHLOROthiazide [Hydrochlorothiazide] 25 mg PO DAILY 03/11/16 Ferrous Gluconate [Iron] 240 mg PO DAILY PM 12/09/18 Rosuvastatin Calcium [Crestor] 5 mg PO DAILY 12/09/18 Rivaroxaban [Xarelto] 20 mg PO DAILY 07/05/21 Allergies/Adverse Reactions: Allergies Allergy/AdvReac Type Severity Reaction Status Date / Time ciprofloxacin [From Cipro] Allergy Mild Hives Verified 07/05/21 13:49 ciprofloxacin HCl * Allergy Mild Hives Verified 07/05/21 13:49 [From Cipro] - Review of Systems Cardiac: AFIB Gastrointestinal: Abdominal pain. No: Constipation, Diarrhea, Melena, Hematochechezia Gentinourinary: No: Dysuria, Frequency, Burning, Pain Musculoskeletal: Joint pain or stiffness. No: Muscle pain, Back pain - Vital Signs Heart Rate: 93 Blood Pressure: 116/50 Temperature: 37.5 C Respiratory Rate: 18 O2 Saturation: 93 Weight (kg): 98.5 kg Height: 1.7 m - Physical Exam General Appearance: positive: No acute distress, Alert Eyes Bilatera: positive: Normal inspection, PERRL, EOMI ENT: positive: ENT inspection nml, Pharynx nml, No signs of dehydration Neck: positive: Nml inspection, No JVD Respiratory: positive: Chest non-tender, No respiratory distress Cardiovascular: positive: Regular rate & rhythm Peripheral Pulses: positive: 0 Abdomen: positive: Tenderness (Very mild left upper quadrant tenderness to palpation. Healed LUQ incision without defect). negative: Guarding, Rebound Skin: positive: Color nml, Warm, Dry Extremities: positive: Non-tender Neurologic/Psychiatric: positive: Oriented x3, CN's nml (2-12) - Patient Review Patient Review: Problems were reviewed with the patient during this visit. Medications were reviewed with the patient during this visit. Allergies were reviewed this patient during this visit. Pertinent Tests Reviewed: All pertitent test for this patient were reviewed. - Assessment & Plan Assessment and Plan: Perforated viscus in the setting of a delightful 81-year-old gentleman with some underlying medical issues.It is impossible determine with certainty whether this is a perforation from the colon, stomach, or duodenum. I think it is most likely from the colon.This presumption is due to the fact that he has documented severe sands colonic diverticular disease and has had no upper GI symptoms.Having said that, I am not willing to perform upper or lower endoscopy as what ever opening occurred it appears to have sealed and we would not want to reopen it with insufflation.Fortunately, he has responded well to antibiotics overnight and is feeling better.I do not think this abscess is in a place where any interve ntional radiologist could reach it without damage to surrounding structures.Our plan going forward is this: 1. Continue IV Zosyn. 2. Repeat CT scan of the abdomen and pelvis on Wednesday to evaluate for resolution or definition of the abscess. If it is improved, we would plan to discharge home with oral antibiotics and repeat studies. If it is worse, we will have to discuss transfer or laparoscopic drainage. 3. Consult the hospitalist service regarding his medical issues and mental status/memory changes. 4.Will advance him to a soft diet and keep him on stool softeners. He can have small amounts of whiskey once or twice a day if the hospitalist feels it is indicated or helpful.
[2021-07-06] MEDS: DOCUSATE SODIUM 250 MG CAPSULE PO SCH ×2 (13:26→21:11)
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
[2021-07-06] MEDS ORDERED: PROMETHAZINE INJ 25 MG in SODIUM CHLORIDE 0.9% 50 ML IV PRN (17:05)
[2021-07-06] MEDS ORDERED: PROCHLORPERAZINE 10 MG/2 ML VIAL IVP PRN (17:05)
[2021-07-06] MEDS: INSULIN ASPART 300 UNIT/3 ML PEN SUBQ SCH ×2 (17:11→21:12)
[2021-07-06] MEDS: POTASSIUM CHLORIDE 20 MEQ TABLET PO SCH (17:56)
--- NOTE | 2021-07-06 19:19 | CT Report ---
PROCEDURE: HEAD WO INDICATIONS: right eyelid droop, hx of meningioma TECHNIQUE: Noncontrast 4.5 mm thick angled axial sections acquired from the foramen magnum to the vertex. For r adiation dose reduction, the following was used: automated exposure control, adjustment of mA and/or kV according to patient size. COMPARISON: Head CT dated 12/09/2018. FINDINGS: Image quality: Excellent. CSF spaces: Basal cisterns are patent. No extra-axial fluid collections. Ventricles are normal in size and shape. Brain: No midline shift. Focal region of encephalomalacia within the right temporal lobe. Dural bas ed calcified extra-axial mass within the right cerebellopontine angle is present measuring roughly 30 mm diameter, which appears slightly increased in size. No intracranial masses or hemorrhage. Johnston-w oscar matter interface is normal. Skull and face: Right frontal temporal craniotomy has been performed. Calvarium and visualized facia l bones are otherwise intact, without suspicious lesions. Sinuses: Visualized sinuses and mastoids are clear. IMPRESSION: 1. No acute intracranial abnormality. 2. Volume loss and small ischemic disease. 3. Postsurgical sequelae. 4. Right skull base meningioma which appears to have increased slightly in size. Nonemergent outpatie nt follow-up brain MRI with and without intravenous contrast is recommended for further assessment. Reviewed by: Nirmal Linares MD on 07/06/2021 7:17 PM PDT Approved by: Nirmal Linares MD on 07/06/2021 7:17 PM PDT Station ID: [id number]
[2021-07-06] MEDS: ATORVASTATIN 10 MG TABLET PO SCH (21:11)
[2021-07-06] MEDS: ENOXAPARIN 100 MG/ML SYRINGE SUBQ SCH (21:12)
[2021-07-07] MEDS: PIPERACILLIN/TAZOBACTAM 3.375 GM in SODIUM CHLORIDE 0.9% MINIBAG 100 ML IV SCH ×3 (01:06→16:25)
[2021-07-07] MEDS: SODIUM CHLORIDE FLUSH 0.9% 10 ML SYRINGE IVP SCH ×3 (01:06→17:35)
[2021-07-07] MEDS: LACTATED RINGERS 1,000 ML IV SCH (01:36)
[2021-07-07] MEDS: ZINC OXIDE 20% OINT 30 GM TUBE TOP PRN (06:01)
--- NOTE | 2021-07-07 07:22 | PROVIDER PROGRESS NOTE ---
Subjective - Prog Note Date Prog Note Date: 07/07/21 Prog Note Time: 10:49 - Subjective Pt reports feeling: Improved Subjective: He was only able to sit up to eat breakfast for about 30 minutes and had to go back to bed because he is in so much discomfort. He states it is not pain per se. But he is uncomfortable enough that he does not want to sit upright. Standing to walk also makes him very uncomfortable and he wants to get back to bed. He is almost back to baseline with his mental status. His [id number] and power of transactional attorney is at the bedside and says that he is got that sparkle in his eye, and he is joking the way he usually does. But he still bit more confused and disoriented. Between yesterday and today he has not had a fever. T-max was 38.6 on July 05. Yesterday it was 37.8. Today he is 36.8. Potassium continues to be low in spite of supplementation. He is 2.6 today. Renal function is stable. Random glucose is 175. White cell count is completely normal. He started at 14.3 on admission and is 9.[address] now[address] We did a CT of his head last night to work-up his mental status changes. He does not have any acute abnormalities. He has chronic volume loss and small ischemic disease as well as right temporal encephalomalacia. That is unchanged. 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 He had a partially resected in the past. He has been getting subsequent MRIs and CTs of the head. Current Medications - Current Medications Current Medications: Active Medications Atorvastatin Calcium (Atorvastatin 10 Mg Tablet) 10 mg PO QPM [facility] Last Admin: 07/06/21 21:11 Dose: 10 mg Documented by: Docusate Sodium (Docusate Sodium 250 Mg Capsule) 250 mg PO BID [facility] Last Admin: 07/07/21 08:25 Dose: 250 mg Documented by: Enoxaparin Sodium (Enoxaparin 100 Mg/Ml Syringe) 100 mg SUBQ BID [facility] Last Admin: 07/07/21 08:26 Dose: 100 mg Documented by: Hydrochlorothiazide (Hydrochlorothiazide 25 Mg Tablet) 25 mg PO DAILY [facility] Last Admin: 07/07/21 08:25 Dose: 25 mg Documented by: Hydromorphone HCl (Hydromorphone 0.5 Mg/0.5 Ml Syringe) 0.5 mg IVP Q2H PRN PRN Reason: Pain 8 to 10 Acetaminophen (Ofirmev) 100 mls @ 400 mls/hr IV Q6HR PRN PRN Reason: PAIN Piperacillin Sod/Tazobactam (Sod 3.375 gm/ Sodium Chloride) 100 mls @ 25 mls/hr IV Q8H [facility] Last Admin: 07/07/21 08:19 Dose: 25 mls/hr Documented by: Potassium Chloride (Potassium Chloride) 10 meq in 100 mls @ 100 mls/hr IV Q1H [facility] Stop: 07/07/21 15:59 Last Infusion: 07/07/21 09:19 Dose: 50 mls/hr Documented by: Insulin Aspart (Insulin Aspart 300 Unit/3 Ml Pen) 1 - 9 unit SUBQ 0800,1200,1700,2100 [facility]; Protocol Last Admin: 07/07/21 08:26 Dose: 1 unit Documented by: Metoclopramide HCl (Metoclopramide 10 Mg/2 Ml Vial) 5 mg IVP Q8HR [facility] Metoprolol Tartrate (Metoprolol Tartrate 50 Mg Tablet) 50 mg PO BID [facility] Last Admin: 07/07/21 08:25 Dose: 50 mg Documented by: Multi-Ingredient Ointment (Zinc Oxide 20% Oint 30 Gm Tube) 1 applic TOP PRN PRN PRN Reason: Skin Care Last Admin: 07/07/21 06:01 Dose: 1 applic Documented by: Ondansetron HCl (Ondansetron 4 Mg/2 Ml Vial) 4 mg IVP Q6HR PRN PRN Reason: Nausea / Vomiting Last Admin: 07/06/21 15:35 Dose: 4 mg Documented by: Potassium Chloride (Potassium Chloride 20 Meq Tablet) 20 meq PO DAILYWM [facility] Last Admin: 07/07/21 08:25 Dose: 20 meq Documented by: Sodium Chloride (Sodium Chloride Flush 0.9% 10 Ml Syringe) 10 ml IVP PRN PRN PRN Reason: NEEDED PER PROVIDER ORDERS Sodium Chloride (Sodium Chloride Flush 0.9% 10 Ml Syringe) 10 ml IVP 0100,0900,1700 [facility] Last Admin: 07/07/21 08:19 Dose: 10 ml Documented by: Metformin HCl [Metformin HCl ER] 750 mg PO BID 04/19/13 Cyanocobalamin [Vitamin B-12] 500 mcg PO DAILY 05/09/14 Pnv No.95/Ferrous Fum/Folic AC [ Tablet] 1 tab PO DAILY 05/09/14 Ascorbic Acid [Vitamin C] 500 mg PO BID 03/11/16 Metoprolol Tartrate [Lopressor] 50 mg PO BID 03/11/16 hydroCHLOROthiazide [Hydrochlorothiazide] 25 mg PO DAILY 03/11/16 Ferrous Gluconate [Iron] 240 mg PO DAILY PM 12/09/18 Rosuvastatin Calcium [Crestor] 5 mg PO DAILY 12/09/18 Rivaroxaban [Xarelto] 20 mg PO DAILY 07/05/21 Objective - Vital Signs/Intake & Output Reviewed Vital Signs: Yes Vital Signs: Vital Signs x48h Temp Pulse Resp BP Pulse Ox 07/07/21 01:26 36.6 C 80 20 108/51 L 94 Intake & Output: Intake & Output 07/04/21 07/05/21 07/06/21 07/07/21 23:59 23:59 23:59 23:59 Intake Total 862.884 5034.333 473.333 Output Total 125 750 450 Balance 726.196 2099.333 23.333 - Objective General Appearance: positive: Alert, Other (Much, much, much more interactive than yesterday. He is jovial. Trying to joke with us. His teeth are back in his mouth. Ate soft diet but it increased the pain and nausea that he was only able to eat about 2 or 3 bites and had to go back to bed.) Eyes Bilateral: positive: PERRL, EOMI, Other (The right eyelid lag has resolved. Wearing glasses.) ENT: positive: No signs of dehydration Neck: positive: No JVD. negative: Stiff neck Respiratory: positive: No respiratory distress. negative: Wheezes, Rales, Rhonchi Cardiovascular: positive: Regular rate & rhythm (He is supposed to be in atrial fibrillation but I hear a regular rate and rhythm). negative: Gallop/S4, Friction rub Abdomen: positive: No organomegaly, Nml bowel sounds, No distention, Tenderness (Left midabdomen and left upper quadrant.), Other (Large, obese abdominal pannus). negative: Guarding, Rebound Skin: positive: Warm, Dry, Pallor Extremities: positive: Full ROM, Pedal edema Neurologic/Psychiatric: positive: Oriented x3, CN's nml (2-12). negative: Motor nml (shuffling gait, doesn't want to lift feet) - Lab Results Fish Bones: 07/07/21 05:11 07/07/21 05:11 Other Labs: Lab Results x24hrs 07/06/21 07/06/21 Range/Units 20:20 16:06 POC Whole Bld Glucose 217 H 194 H (70 - 100) mg/dL ABX Reporting Has patient been on IV antibiotics over the past 48 hours?: Yes Assessment/Plan - Problem List (1) Altered mental status Impression: General surgery is concerned because he is described as that alert, lucid gentleman. According to DIL, a week ago there was a change in his mental status where he just was not himself. That worsened even more acutely on admission with the presentation of the left lower quadrant pain. He had a history of a benign tumor. No previous history of dementia but noticeably having memory loss over the last few months. No history of a recent fall. He is on anticoagulation for chronic atrial fibrillation. On examination he did have a transient fever to 38.6 on admission before being on antibiotics. He continues to have a low-grade fever. Electrolytes are not severely disrupted. White cell count is high. Differential diagnosis in this gentleman could be cognitive deficit of aging that has gone unrecognized and acutely worsened in an acute illness versus stroke versus brain bleed. Again, he does not have any focal neurological deficits. I ordered a CT of head and it was compared to December 09, 2018. Volume loss and small ischemic disease from where he had his right frontal temporal craniotomy. Focal region of encephalomalacia within the right temporal lobe postsurgical sequelae. 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 Nonemergent outpatient follow-up MRI recommended. Dr. Burnham reviewed the CT with radiology. Even though he was described as having a craniotomy to remove the meningioma, the meningioma was not completely removed. Only partially. As such what is left behind is been slightly growing. But very, very slowly and only may be 1 mm. As such I do not think this is the cause of his own mental status. In view of the fact that he is improved tremendously today with IV antibiotics, IV fluids I think he has metabolic encephalopathy that is resolving due to infection. Plan:At this time no further work-up. Encephalopathy has resolved. Qualifiers: Altered mental status type: disorientation Qualified Code(s): R41.0 - Disorientation, unspecified (2) Intra-abdominal abscess Conclusion/Plan: CAT scan reviewed with general surgery and this area of anatomic confluence is in the left upper the left mid abdomen causing this abcess. It really is not accessible to interventional radiology and drainage. Differential diagnosis for this includes diverticulitis with fistula, abscess formation not pertaining to diverticulitis, rupture of organ such as duodenum besides bowel. Dr. Burnham would like to treat conservatively since this would be a difficult surgical case to do [facility]. She is hoping that he will respond to ant ibiotics. Repeat the CT on Wednesday. Today is Wednesday. If the patient continues to have an abscess or increased size of abscess he will need to be transferred. If some of the inflammation is resolved or improved, he may be able to go home with oral antibiotics. Unfortunately labs were not ordered for this morning. So I have taken the liberty of ordering a CBC and a BMP for today and the next few days. Dr. Burnham has seen the family this morning. Discussed the case with them. Right now we are waiting to see how he does by tomorrow. CT scan will be repeated at that time (3) Controlled type 2 diabetes mellitus without complication, without long-term current use of insulin Conclusion/Plan: He was initially on a Soft mechanical diet. Since it is not being tolerated he has been changed to a clear liquid diet. He is usually on metformin at home. Plan: Yesterday he received a dose of 3 units with dinner and at at bedtime. Right now it is too early to see what his morning glucose before breakfast. Will reassess at that time. I may start 10 units of Lantus depending on his sugars today. I will also review his A1c. It was drawn and the results are pending. (4) Alcohol abuse Conclusion/Plan: That is possible. He endorses only 2 drinks a day. MCV is mildly elevated. He is asking for his whiskey. Plan: So far he has not had tachycardia or hypertension. No tremulousness or diaphoresis. Continue to observe. Start CIWA protocol if need be (5) Anticoagulant long-term use Conclusion/Plan: This is for chronic atrial fibrillation as well as hx of DVT and PE. Will transition to lovenox while he is here in case he does have to have emergency surgery or for possible transfer for a surgical procedure. (6) Hypertension Conclusion/Plan: usually on metoprolol and HCTZ. Blood pressure today has varied between 101/51 1 in the morning. And is 132/58 this morning. I have already resumed his metroprolol to avoid rebound tachycardia, but hold of on HCTZ at this time. Plan: No change in management today Qualifiers: Hypertension type: primary hypertension Qualified Code(s): I10 - Essential (primary) hypertension (7) Hypokalemia Conclusion/Plan: After P.o. supplementation yesterday, his potassium is 2.6 this morning I will start back to back K riders. That will give him approximately 800 cc over 8 hours. I will stop his lactated Ringer's while that is ongoing. Once his K rider stop, I will resume his lactated Ringer's (6) Hypertension Qualifiers: Hypertension type: primary hypertension Qualified Code(s): I10 - Essential (primary) hypertension
[2021-07-07 07:41] LABS: CALCIUM 7.6 mg/dL (8.5-10.3); POTASSIUM 2.6 mmol/L (3.5-5.0)
[2021-07-07 07:52] LABS: BASOPHILS % (AUTO) 0.2 %; HCT - HEMATOCRIT 35.4 % (42.0-52.0); LYMPHOCYTES # (AUTO) 1.2 10^3/uL (1.5-3.5); LYMPHOCYTES % (AUTO) 12.1 %; MEAN CORPUSCULAR HEMOGLOBIN 33.1 pg (27.0-31.0); MEAN CORPUSCULAR HGB CONC 33.9 g/dL (32.0-36.0); MEAN CORPUSCULAR VOLUME 97.5 fL (80.0-94.0); MEAN PLATELET VOLUME 10.8 fL (7.4-11.4); MONOCYTES # (AUTO) 0.4 10^3/uL (0.0-1.0); MONOCYTES % (AUTO) 4.4 %; NEUTROPHILS # (AUTO) 7.9 10^3/uL (1.5-6.6); NEUTROPHILS % (AUTO) 82.8 %; PLT - PLATELET COUNT 129 10^3/uL (130-450); RED BLOOD COUNT 3.63 10^6/uL (4.70-6.10); RED CELL DISTRIBUTION WIDTH 12.9 % (12.0-15.0); WHITE BLOOD COUNT 9.5 x10^3/uL (4.8-10.8)
[2021-07-07] MEDS: hydroCHLOROthiazide 25 MG TABLET PO SCH (08:25)
[2021-07-07] MEDS: DOCUSATE SODIUM 250 MG CAPSULE PO SCH ×2 (08:25→21:04)
[2021-07-07] MEDS: METOPROLOL TARTRATE 50 MG TABLET PO SCH ×2 (08:25→21:07)
[2021-07-07] MEDS: POTASSIUM CHLORIDE 20 MEQ TABLET PO SCH (08:25)
[2021-07-07] MEDS: ENOXAPARIN 100 MG/ML SYRINGE SUBQ SCH ×2 (08:26→21:03)
[2021-07-07] MEDS: INSULIN ASPART 300 UNIT/3 ML PEN SUBQ SCH ×4 (08:26→21:03)
--- NOTE | 2021-07-07 08:58 | PROVIDER PROGRESS NOTE ---
Subjective - General Admit Date: 07/05/21 Procedure Performed: HD #2 - Review of Systems Gastrointestinal: positive: Nausea, Vomiting (Most of the afternoon yesterday) - Other Other Information/Narrative: Awake and alert this morning. Reports he had nausea and vomiting all afternoon and was a little queasy after breakfast. Liquid stool yesterday. No blood noted. Reports abdominal pain only when he coughs. Objective - Patient Data Reviewed Vital Signs: Yes Vital Signs: Vital Signs x48h Temp Pulse Resp BP BP Pulse Ox 07/07/21 07:48 36.8 C 72 18 132/58 H 97 07/07/21 01:26 36.6 C 80 20 108/51 L 94 Weight: Weight 07/05/21 07/06/21 07/07/21 23:59 23:59 23:59 Weight (kg) 98.5 kg 98.5 kg Intake & Output: Intake and Output Totals x24h 07/05/21 07/06/21 07/07/21 23:59 23:59 23:59 Intake Total 785.060 1802.333 473.333 Output Total 125 750 450 Balance 637.777 4942.333 23.333 - Lab Results Lab Results: 07/07/21 05:11 07/07/21 05:11 Other Lab Results: Lab Results x24hrs 07/07/21 07/07/21 07/07/21 Range/Units 07:43 05:11 05:11 WBC 9.5 (4.8-10.8) x10^3/uL RBC 3.63 L (4.70-6.10) 10^6/uL Hgb 12.0 L (14.0-18.0) g/dL Hct 35.4 L (42.0-52.0) % MCV 97.5 H (80.0-94.0) fL MCH 33.1 H (27.0-31.0) pg MCHC 33.9 (32.0-36.0) g/dL RDW 12.9 (12.0-15.0) % Plt Count 129 L (130-450) 10^3/uL MPV 10.8 (7.4-11.4) fL Neut # (Auto) 7.9 H (1.5-6.6) 10^3/uL Lymph # (Auto) 1.2 L (1.5-3.5) 10^3/uL Upson # (Auto) 0.4 (0.0-1.0) 10^3/uL Eos # (Auto) 0.0 (0.0-0.7) 10^3/uL Baso # (Auto) 0.0 (0.0-0.1) 10^3/uL Absolute Nucleated RBC 0.00 x10^3/uL Nucleated RBC % 0.0 /100WBC Sodium 138 (135-145) mmol/L Potassium 2.6 L (3.5-5.0) mmol/L Chloride 103 (101-111) mmol/L Carbon Dioxide 24 (21-32) mmol/L Anion Gap 11.0 (6-13) BUN 21 H (6-20) mg/dL Creatinine 1.0 (0.6-1.2) mg/dL Estimated GFR (MDRD) 72 L (>89) Glucose 206 H (70-100) mg/dL POC Whole Bld Glucose 175 H (70 - 100) mg/dL Calcium 7.6 L (8.5-10.3) mg/dL 07/06/21 07/06/21 Range/Units 20:20 16:06 WBC (4.8-10.8) x10^3/uL RBC (4.70-6.10) 10^6/uL Hgb (14.0-18.0) g/dL Hct (42.0-52.0) % MCV (80.0-94.0) fL MCH (27.0-31.0) pg MCHC (32.0-36.0) g/dL RDW (12.0-15.0) % Plt Count (130-450) 10^3/uL MPV (7.4-11.4) fL Neut # (Auto) (1.5-6.6) 10^3/uL Lymph # (Auto) (1.5-3.5) 10^3/uL Upson # (Auto) (0.0-1.0) 10^3/uL Eos # (Auto) (0.0-0.7) 10^3/uL Baso # (Auto) (0.0-0.1) 10^3/uL Absolute Nucleated RBC x10^3/uL Nucleated RBC % /100WBC Sodium (135-145) mmol/L Potassium (3.5-5.0) mmol/L Chloride (101-111) mmol/L Carbon Dioxide (21-32) mmol/L Anion Gap (6-13) BUN (6-20) mg/dL Creatinine (0.6-1.2) mg/dL Estimated GFR (MDRD) (>89) Glucose (70-100) mg/dL POC Whole Bld Glucose 217 H 194 H (70 - 100) mg/dL Calcium (8.5-10.3) mg/dL - Imaging Results Radiology Imaging: positive: Prelim report reviewed Imaging Results Comments: Brain MRI shows appearance of the meningioma remnant is essentiallly stable. Perhaps a mm or two difference but would need contrast enhanced MRI to truly evaluate. Noted microvascular disease - Current Medications Current Medications: Current Medications Generic Name Dose Route Start Last Admin Trade Name Freq PRN Reason Stop Dose Admin Atorvastatin Calcium 10 mg 07/06/21 21:00 07/06/21 21:11 Atorvastatin 10 Mg Tablet PO 10 mg QPM FELY Administration Docusate Sodium 250 mg 07/06/21 13:00 07/07/21 08:25 Docusate Sodium 250 Mg Capsule PO 250 mg BID FELY Administration Enoxaparin Sodium 100 mg 07/06/21 21:00 07/07/21 08:26 Enoxaparin 100 Mg/Ml Syringe SUBQ 100 mg BID [facility]ELY Administration Hydrochlorothiazide 25 mg 07/06/21 09:00 07/07/21 08:25 Hydrochlorothiazide 25 Mg Tablet PO 25 mg DAILY [facility] Administration Piperacillin Sod/Tazobactam 100 mls @ 25 mls/hr 07/06/21 00:00 07/07/21 08:19 Sod 3.375 gm/ Sodium Chloride IV 25 mls/hr Q8H [facility] Administration Insulin Aspart 1 - 9 unit 07/06/21 17:00 07/07/21 08:26 Insulin Aspart 300 Unit/3 Ml Pen SUBQ 1 unit 0800,1200,1700,2100 [facility] Administration Protocol Metoprolol Tartrate 50 mg 07/05/21 21:00 07/07/21 08:25 Metoprolol Tartrate 50 Mg Tablet PO 50 mg BID FELY Administration Multi-Ingredient Ointment 1 applic 07/07/21 04:54 07/07/21 06:01 Zinc Oxide 20% Oint 30 Gm Tube TOP 1 applic PRN PRN Administration Skin Care Ondansetron HCl 4 mg 07/05/21 17:27 07/06/21 15:35 Ondansetron 4 Mg/2 Ml Vial IVP 4 mg Q6HR PRN Administration Nausea / Vomiting Potassium Chloride 20 meq 07/06/21 18:00 07/07/21 08:25 Potassium Chloride 20 Meq Tablet PO 20 meq DAILYWM [facility] Administration Sodium Chloride 10 ml 07/06/21 01:00 07/07/21 08:19 Sodium Chloride Flush 0.9% 10 Ml Syringe IVP 10 ml 0100,0900,1700 [facility] Administration - Physical Exam Abdomen: positive: Nml bowel sounds, Other (soft with very minimal tenderness to palpation) Impression/Plan - Problem List Problem List: Appreciate medicine help. Plans for today: 1. Back to clear liquid diet 2. Add Reglan q 8 hours and try to improve nausea 3. CT ordered for the AM. 4. K Riders per hospitalist 5. Ambulate in the halls. 6. Labs ordered for AM
[2021-07-07] MEDS ORDERED: LIDOCAINE 2%-EPI 1:100000 20 ML MDV ONE (09:12)
[2021-07-07] MEDS ORDERED: BUPIVACAINE 0.5% PF 10 ML VIAL ONE (09:13)
[2021-07-07] MEDS: POTASSIUM CHLOR 10 MEQ/100 ML 10 MEQ/100 ML BAG IV SCH ×8 (09:19→20:27)
[2021-07-07 10:36] LABS: ESTIMATED AVERAGE GLUCOSE 154 mg/dL (70-100)
[2021-07-07] MEDS: METOCLOPRAMIDE 10 MG/2 ML VIAL IVP SCH ×3 (11:22→21:11)
[2021-07-07] MEDS: SODIUM CHLORIDE FLUSH 0.9% 10 ML SYRINGE IVP PRN (11:24)
[2021-07-07] MEDS: ATORVASTATIN 10 MG TABLET PO SCH (21:04)
[2021-07-08] MEDS: PIPERACILLIN/TAZOBACTAM 3.375 GM in SODIUM CHLORIDE 0.9% MINIBAG 100 ML IV SCH ×3 (00:12→16:30)
[2021-07-08] MEDS: SODIUM CHLORIDE FLUSH 0.9% 10 ML SYRINGE IVP SCH ×3 (00:16→16:32)
[2021-07-08] MEDS ORDERED: LACTATED RINGERS 1,000 ML IV ONE (00:34)
[2021-07-08 05:33] LABS: BASOPHILS % (AUTO) 0.2 %; EOSINOPHILS % (AUTO) 0.5 %; HCT - HEMATOCRIT 33.4 % (42.0-52.0); HGB - HEMOGLOBIN 11.5 g/dL (14.0-18.0); LYMPHOCYTES # (AUTO) 0.9 10^3/uL (1.5-3.5); LYMPHOCYTES % (AUTO) 10.4 %; MEAN CORPUSCULAR HEMOGLOBIN 33.1 pg (27.0-31.0); MEAN CORPUSCULAR HGB CONC 34.4 g/dL (32.0-36.0); MEAN CORPUSCULAR VOLUME 96.3 fL (80.0-94.0); MEAN PLATELET VOLUME 10.2 fL (7.4-11.4); MONOCYTES # (AUTO) 0.4 10^3/uL (0.0-1.0); MONOCYTES % (AUTO) 5.2 %; NEUTROPHILS # (AUTO) 6.9 10^3/uL (1.5-6.6); PLT - PLATELET COUNT 144 10^3/uL (130-450); RED BLOOD COUNT 3.47 10^6/uL (4.70-6.10); RED CELL DISTRIBUTION WIDTH 12.6 % (12.0-15.0); WHITE BLOOD COUNT 8.3 x10^3/uL (4.8-10.8)
[2021-07-08 05:39] LABS: CALCIUM 7.5 mg/dL (8.5-10.3); POTASSIUM 2.6 mmol/L (3.5-5.0)
[2021-07-08] MEDS: METOCLOPRAMIDE 10 MG/2 ML VIAL IVP SCH ×3 (06:32→21:08)
[2021-07-08] MEDS ORDERED: POTASSIUM CHLORIDE 20 MEQ TABLET PO ONE (07:04)
[2021-07-08 07:31] LABS: MAGNESIUM 1.3 mg/dL (1.7-2.8); PHOSPHORUS 1.3 mg/dL (2.5-4.6)
[2021-07-08] MEDS ORDERED: IOVERSOL 320 50 ML VIAL ONE (07:40)
[2021-07-08] MEDS ORDERED: IOPAMIDOL-300 50 ML VIAL ONE (07:41)
--- NOTE | 2021-07-08 07:52 | PROVIDER PROGRESS NOTE ---
Subjective - Prog Note Date Prog Note Date: 07/08/21 Prog Note Time: 07:48 - Subjective Subjective: [id number] reports that he is having hallucinations. Black cats running up and down the halls, the room furniture is getting appended. He states that the TV is on the floor. He is confused about where he is. He keeps on asking about his car. He is worried that he is going to have to take the stairs to leave and is asking where he is. Asking where his shoes and clothes. Hypotensive. Required lactated Ringer's bolus this morning. Current Medications - Current Medications Current Medications: Active Medications Atorvastatin Calcium (Atorvastatin 10 Mg Tablet) 10 mg PO QPM [facility] Last Admin: 07/07/21 21:04 Dose: 10 mg Documented by: Docusate Sodium (Docusate Sodium 250 Mg Capsule) 250 mg PO BID [facility] Last Admin: 07/07/21 21:04 Dose: 250 mg Documented by: Enoxaparin Sodium (Enoxaparin 100 Mg/Ml Syringe) 100 mg SUBQ BID [facility] Last Admin: 07/07/21 21:03 Dose: 100 mg Documented by: Hydromorphone HCl (Hydromorphone 0.5 Mg/0.5 Ml Syringe) 0.5 mg IVP Q2H PRN PRN Reason: Pain 8 to 10 Acetaminophen (Ofirmev) 100 mls @ 400 mls/hr IV Q6HR PRN PRN Reason: PAIN Piperacillin Sod/Tazobactam (Sod 3.375 gm/ Sodium Chloride) 100 mls @ 25 mls/hr IV Q8H [facility] Last Infusion: 07/08/21 04:15 Dose: Infused Documented by: Potassium Chloride (Potassium Chloride) 10 meq in 100 mls @ 100 mls/hr IV Q1H [facility] Stop: 07/08/21 11:59 Insulin Aspart (Insulin Aspart 300 Unit/3 Ml Pen) 1 - 9 unit SUBQ 0800,1200,1700,2100 [facility]; Protocol Last Admin: 07/07/21 21:03 Dose: 1 unit Documented by: Metoclopramide HCl (Metoclopramide 10 Mg/2 Ml Vial) 5 mg IVP Q8HR [facility] Last Admin: 07/08/21 06:32 Dose: 5 mg Documented by: Metoprolol Tartrate (Metoprolol Tartrate 50 Mg Tablet) 50 mg PO BID [facility] Multi-Ingredient Ointment (Zinc Oxide 20% Oint 30 Gm Tube) 1 applic TOP PRN PRN PRN Reason: Skin Care Last Admin: 07/07/21 06:01 Dose: 1 applic Documented by: Ondansetron HCl (Ondansetron 4 Mg/2 Ml Vial) 4 mg IVP Q6HR PRN PRN Reason: Nausea / Vomiting Last Admin: 07/06/21 15:35 Dose: 4 mg Documented by: Potassium Chloride (Potassium Chloride 20 Meq Tablet) 20 meq PO DAILYWM [facility] Last Admin: 07/07/21 08:25 Dose: 20 meq Documented by: Sodium Chloride (Sodium Chloride Flush 0.9% 10 Ml Syringe) 10 ml IVP PRN PRN PRN Reason: NEEDED PER PROVIDER ORDERS Last Admin: 07/07/21 11:24 Dose: 10 ml Documented by: Sodium Chloride (Sodium Chloride Flush 0.9% 10 Ml Syringe) 10 ml IVP 0100,0900,1700 [facility] Last Admin: 07/08/21 00:16 Dose: Not Given Documented by: Metformin HCl [Metformin HCl ER] 750 mg PO BID 04/19/13 Cyanocobalamin [Vitamin B-12] 500 mcg PO DAILY 05/09/14 Pnv No.95/Ferrous Fum/Folic AC [ Tablet] 1 tab PO DAILY 05/09/14 Ascorbic Acid [Vitamin C] 500 mg PO BID 03/11/16 Metoprolol Tartrate [Lopressor] 50 mg PO BID 03/11/16 hydroCHLOROthiazide [Hydrochlorothiazide] 25 mg PO DAILY 03/11/16 Ferrous Gluconate [Iron] 240 mg PO DAILY PM 12/09/18 Rosuvastatin Calcium [Crestor] 5 mg PO DAILY 12/09/18 Rivaroxaban [Xarelto] 20 mg PO DAILY 07/05/21 Objective - Vital Signs/Intake & Output Reviewed Vital Signs: Yes Vital Signs: Vital Signs x48h Temp Pulse Resp BP BP Pulse Ox 07/08/21 07:38 37.3 C 83 20 133/62 H 07/08/21 02:30 101/46 L 07/08/21 00:30 101/36 L 07/08/21 00:15 37.1 C 81 19 98/40 L 92 Intake & Output: Intake & Output 07/05/21 07/06/21 07/07/21 08/24/21 23:59 23:59 23:59 23:59 Intake Total 911.481 0967.333 3098.333 1100 Output Total 125 750 450 Balance 139.008 9024.333 2648.333 1100 - Objective General Appearance: positive: No acute distress, Alert, Other (sitting up in chair. comfortable. DIL at bedside. Wonderful advocate.) Eyes Bilateral: positive: PERRL, EOMI ENT: positive: No signs of dehydration, Other (dentures) Neck: positive: No JVD. negative: Stiff neck Respiratory: positive: No respiratory distress. negative: Wheezes, Rales, Rhonchi Cardiovascular: positive: Irregularly irregular. negative: Gallop/S4, Friction rub Abdomen: positive: Non-tender, No organomegaly, Nml bowel sounds, No distention Skin: positive: Warm, Dry Extremities: positive: Full ROM, Pedal edema (mild and less than admit) Neurologic/Psychiatric: positive: Oriented x3, CN's nml (2-12) (except mildly deaf.). negative: Motor nml (shuffles when he stands and walks 2 steps to chair. slow mentation but better than yesterday.) - Lab Results Fish Bones: 07/08/21 05:24 07/08/21 05:24 Other Labs: Lab Results x24hrs 07/08/21 07/08/21 07/08/21 Range/Units 07:36 05:24 05:24 WBC (4.8-10.8) x10^3/uL RBC (4.70-6.10) 10^6/uL Hgb (14.0-18.0) g/dL Hct (42.0-52.0) % MCV (80.0-94.0) fL MCH (27.0-31.0) pg MCHC (32.0-36.0) g/dL RDW (12.0-15.0) % Plt Count (130-450) 10^3/uL MPV (7.4-11.4) fL Neut # (Auto) (1.5-6.6) 10^3/uL Lymph # (Auto) (1.5-3.5) 10^3/uL [place] # (Auto) (0.0-1.0) 10^3/uL Eos # (Auto) (0.0-0.7) 10^3/uL Baso # (Auto) (0.0-0.1) 10^3/uL Absolute Nucleated RBC x10^3/uL Nucleated RBC % /100WBC Sodium 138 (135-145) mmol/L Potassium 2.6 L (3.5-5.0) mmol/L Chloride 104 (101-111) mmol/L Carbon Dioxide 23 (21-32) mmol/L Anion Gap 11.0 (6-13) BUN 16 (6-20) mg/dL Creatinine 1.0 (0.6-1.2) mg/dL Estimated GFR (MDRD) 72 L (>89) Glucose 146 H (70-100) mg/dL POC Whole Bld Glucose 145 H (70 - 100) mg/dL Estimat Average Glucose (70-100) mg/dL Hemoglobin A1c % (4.27-6.07) % Calcium 7.5 L (8.5-10.3) mg/dL Phosphorus 1.3 L (2.5-4.6) mg/dL Magnesium 1.3 L (1.7-2.8) mg/dL 07/08/21 07/07/21 07/07/21 Range/Units 05:24 20:56 16:33 WBC 8.3 (4.8-10.8) x10^3/uL RBC 3.47 L (4.70-6.10) 10^6/uL Hgb 11.5 L (14.0-18.0) g/dL Hct 33.4 L (42.0-52.0) % MCV 96.3 H (80.0-94.0) fL MCH 33.1 H (27.0-31.0) pg MCHC 34.4 (32.0-36.0) g/dL RDW 12.6 (12.0-15.0) % Plt Count 144 (130-450) 10^3/uL MPV 10.2 (7.4-11.4) fL Neut # (Auto) 6.9 H (1.5-6.6) 10^3/uL Lymph # (Auto) 0.9 L (1.5-3.5) 10^3/uL [place] # (Auto) 0.4 (0.0-1.0) 10^3/uL Eos # (Auto) 0.0 (0.0-0.7) 10^3/uL Baso # (Auto) 0.0 (0.0-0.1) 10^3/uL Absolute Nucleated RBC 0.00 x10^3/uL Nucleated RBC % 0.0 /100WBC Sodium (135-145) mmol/L Potassium (3.5-5.0) mmol/L Chloride (101-111) mmol/L Carbon Dioxide (21-32) mmol/L Anion Gap (6-13) BUN (6-20) mg/dL Creatinine (0.6-1.2) mg/dL Estimated GFR (MDRD) (>89) Glucose (70-100) mg/dL POC Whole Bld Glucose 153 H 162 H (70 - 100) mg/dL Estimat Average Glucose (70-100) mg/dL Hemoglobin A1c % (4.27-6.07) % Calcium (8.5-10.3) mg/dL Phosphorus (2.5-4.6) mg/dL Magnesium (1.7-2.8) mg/dL 07/07/21 07/07/21 07/07/21 Range/Units 11:20 05:11 05:11 WBC 9.5 (4.8-10.8) x10^3/uL RBC 3.63 L (4.70-6.10) 10^6/uL Hgb 12.0 L (14.0-18.0) g/dL Hct 35.4 L (42.0-52.0) % MCV 97.5 H (80.0-94.0) fL MCH 33.1 H (27.0-31.0) pg MCHC 33.9 (32.0-36.0) g/dL RDW 12.9 (12.0-15.0) % Plt Count 129 L (130-450) 10^3/uL MPV 10.8 (7.4-11.4) fL Neut # (Auto) 7.9 H (1.5-6.6) 10^3/uL Lymph # (Auto) 1.2 L (1.5-3.5) 10^3/uL [place] # (Auto) 0.4 (0.0-1.0) 10^3/uL Eos # (Auto) 0.0 (0.0-0.7) 10^3/uL Baso # (Auto) 0.0 (0.0-0.1) 10^3/uL Absolute Nucleated RBC 0.00 x10^3/uL Nucleated RBC % 0.0 /100WBC Sodium (135-145) mmol/L Potassium (3.5-5.0) mmol/L Chloride (101-111) mmol/L Carbon Dioxide (21-32) mmol/L Anion Gap (6-13) BUN (6-20) mg/dL Creatinine (0.6-1.2) mg/dL Estimated GFR (MDRD) (>89) Glucose (70-100) mg/dL POC Whole Bld Glucose 181 H (70 - 100) mg/dL Estimat Average Glucose 154 H (70-100) mg/dL Hemoglobin A1c % 7.0 H (4.27-6.07) % Calcium (8.5-10.3) mg/dL Phosphorus (2.5-4.6) mg/dL Magnesium (1.7-2.8) mg/dL ABX Reporting Has patient been on IV antibiotics over the past 48 hours?: Yes Assessment/Plan - Problem List (1) Altered mental status Impression: General surgery is concerned because he is described as that alert, lucid gentleman. According to DIL, a week ago there was a change in his mental status where he just was not himself. That worsened even more acutely on admission with the presentation of the left lower quadrant pain. He had a history of a benign tumor. No previous history of dementia but noticeably having memory loss over the last few months. No history of a recent fall. He is on anticoagulation for chronic atrial fibrillation. On examination he did have a transient fever to 38.6 on admission before being on antibiotics. He continues to have a low-grade fever. Electrolytes are not severely disrupted. White cell count is high. Differential diagnosis in this gentleman could be cognitive deficit of aging that has gone unrecognized and acutely worsened in an acute illness versus stroke versus brain bleed. Again, he does not have any focal neurological defic its. I ordered a CT of head and it was compared to December 09, 2018. Volume loss and small ischemic disease from where he had his right frontal temporal craniotomy. Focal region of encephalomalacia within the right temporal lobe postsurgical sequelae. 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 Nonemergent outpatient follow-up MRI recommended. Dr. Burnham reviewed the CT with radiology. Even though he was described as having a craniotomy to remove the meningioma, the meningioma was not completely removed. Only partially. As such what is left behind is been slightly growing. But very, very slowly and only may be 1 mm. As such I do not think this is the cause of his own mental status. My presumption was that of a metabolic encephalopathy that was resolving due to infection. But last night he is having quite a bit of delirium, hallucinations. This is an elderly gentleman who is already having mild cognitive deficits and has a history of alcohol abuse. So I think his encephalopathy has returned from a different cause. Plan:Consider treating with low-dose benzodiazepines to avoid oversedation to at least control some of the hallucinations that may be from alcohol withdrawal. DIL feels it's not alcohol withdrawal. When he had his meningioma surgery he has severe withdrawal. But he protests and states he drinks 2-3 times a week and only 1-2 at a time. He is not tachycardic or hypertensive The only other cause of hallucinations could be simple delirium in an elderly patient with cognitive deficit. Qualifiers: Altered mental status type: disorientation Qualified Code(s): R41.0 - Disorientation, unspecified (2) Intra-abdominal abscess Conclusion/Plan: CAT scan reviewed with general surgery and this area of anatomic confluence is in the left upper the left mid abdomen causing this abcess. It really is not accessible to interventional radiology and drainage. Differential diagnosis for this includes diverticulitis with fistula, abscess formation not pertaining to diverticulitis, rupture of organ such as duodenum besides bowel. Dr. Burnham would like to treat conservatively since this would be a difficult surgical case to [facility]. She is hoping that he will respond to antibiotics. If the patient continues to have an abscess or increased size of abscess he will need to be transferred. If some of the inflammation is resolved or improved, he may be able to go home with oral antibiotics. White cell count was elevated on admission at 14.3. It has been coming down and today is 8.3. Today's CT of abdomen shows no change in the size of the abcess. I shared the results with him and the DIL Will await her plan. (3) Controlled type 2 diabetes mellitus without complication, without long-term current use of insulin Conclusion/Plan: He was initially on a Soft mechanical diet. Since it is not being tolerated he has been changed to a clear liquid diet. He is usually on metformin at home. He is receiving 1 to 3 units with each meal. Tolerating clear liquids. Plan: I considered starting him on Lantus. But he does not require that much insulin. A1c is 7%. At this time we will continue current sliding scale. Resume Metformin when he gets home. (4) Alcohol abuse Conclusion/Plan: Delirium started last night. Will start CIWA protocol with low-dose Ativan. Unfortunately an elderly gentleman with cognitive deficits that are mild and present already, he may get even more confused. (5) Anticoagulant long-term use Conclusion/Plan: This is for chronic atrial fibrillation as well as hx of DVT and PE. Will transition to lovenox while he is here in case he does have to have emergency surgery or for possible transfer for a surgical procedure. (6) Hypertension Conclusion/Plan: usually on metoprolol and HCTZ. Hypotensive this morning. Received a fluid bolus. I have already resumed his metroprolol to avoid rebound tachycardia, but hold of on HCTZ at this time. General surgery had resumed his hydrochlorothiazide. I stopped that today. Qualifiers: Hypertension type: primary hypertension Qualified Code(s): I10 - Essential (primary) hypertension (7) Hypokalemia Conclusion/Plan: After P.o. supplementation. His potassium was still low. As such I gave him 8 potassium riders yesterday. This morning he is still 2.6. I will continue to give him another set of potassium riders. Dr. Fonseca has written for 40 meq. I will check again after that dose. While he is getting potassium I was holding off on lactated Ringer's. That will give him approximately 800 cc over 8 hours. I will stop his lactated Ringer's while that is ongoing. Once his K rider stop, I will resume his lactated Ringer's (6) Hypertension Qualifiers: Hypertension type: primary hypertension Qualified Code(s): I10 - Essential (primary) hypertension
[2021-07-08] MEDS ORDERED: LORazepam 2 MG/ML VIAL IVP PRN ×2 (07:59→14:41)
[2021-07-08] MEDS: INSULIN ASPART 300 UNIT/3 ML PEN SUBQ SCH ×4 (09:00→21:07)
[2021-07-08] MEDS ORDERED: POTASSIUM PHOSPHATE 30 MMOL in SODIUM CHLORIDE 0.9% 500 ML IV SCH (09:00)
[2021-07-08] MEDS: ENOXAPARIN 100 MG/ML SYRINGE SUBQ SCH ×2 (09:00→21:02)
[2021-07-08] MEDS ORDERED: IOVERSOL 320 50 ML VIAL PO ONE (09:55)
[2021-07-08] MEDS ORDERED: IOPAMIDOL-300 50 ML VIAL IVP ONE (09:55)
--- NOTE | 2021-07-08 10:07 | CT Report ---
PROCEDURE: Abdomen/Pelvis W INDICATIONS: Left upper quadrant abscess CONTRAST: IV CONTRAST: Isovue 300 ml: 100 PO CONTRAST: Optiray 320 ml50 TECHNIQUE: After the administration of IV and oral contrast, 5 mm thick sections acquired from the diaphragms to the symphysis. 5 mm thick coronal and sagittal reformats were acquired. For radiation dose reducti on, the following was used: automated exposure control, adjustment of mA and/or kV according to jaspreet ent size. COMPARISON: 07/05/2021 CT abdomen pelvis FINDINGS: ABDOMEN: Lung bases: Scattered subsegmental scarring/atelectasis. No acute consolidation. Bilateral lower lob e bronchiectasis. Heart: Normal in size. Moderate coronary artery calcifications. Liver: Normal. Gallbladder: Distended appearance and multiple calcified gallstones as before. No pericholecystic inf lammatory changes. Bile ducts: Normal. Pancreas: Normal. Spleen: Normal. Adrenals: Normal. Kidneys and ureters: Left kidney absent. No hydronephrosis seen in the right kidney. Simple appearing right renal cyst. Right ureter appears decompressed Stomach and duodenum: Incidentally noted 10 diverticulum. There is moderate distention of the stomach . Inflammatory changes involving the distal duodenum and proximal jejunum with mural thickening and a djacent fluid and gas collection measuring 3.9 x 3.1 cm, previously 3.8 x 3.4 cm on 07/05/2021. Surrou nding inflammatory changes in finding is again consistent with abscess/contained perforation. Bowel: The remaining distal small bowel appears decompressed. No definite bowel obstruction identifie d. Colonic diverticulosis incidentally noted without evidence of acute inflammation. Normal appearance of the appendix. Other: Elsewhere, no free fluid or free air. Abdominal nodes: Normal. Aorta: Normal in size. Scattered atherotic calcifications. IVC: Normal. Ventral wall: Diffuse subcutaneous locules of gas presumably from injections. PELVIS: Bladder: Partially decompressed otherwise unremarkable. There are prostate brachytherapy seeds. Pelvic nodes: Normal. Inguinal: Small bilateral fat-containing inguinal hernias. Bones: Diffuse spondylosis and facet arthropathy. Prominent anterior spinal bridging ossification villalta sing the possibility of DISH IMPRESSION: Overall, grossly unchanged examination since 07/05/2021, with redemonstrated gas and fluid collection again compatible with abscess/phlegmon and contained perforation adjacent to the distal duodenum and proximal jejunum. Additional chronic and incidental findings as above. Reviewed by: Salvatore Feliciano MD on 07/08/2021 10:06 AM PDT Approved by: Salvatore Feliciano MD on 07/08/2021 10:06 AM PDT Station ID: [id number]
[2021-07-08] MEDS: METOPROLOL TARTRATE 50 MG TABLET PO SCH ×2 (10:36→21:21)
[2021-07-08] MEDS: DOCUSATE SODIUM 250 MG CAPSULE PO SCH ×2 (10:36→21:02)
[2021-07-08] MEDS: POTASSIUM CHLORIDE 20 MEQ TABLET PO SCH (10:36)
[2021-07-08] MEDS: POTASSIUM CHLOR 10 MEQ/100 ML 10 MEQ/100 ML BAG IV SCH ×2 (10:46→12:41)
[2021-07-08] MEDS ORDERED: MAGNESIUM SULFATE 2 GRAM 2 GM/50 ML BAG IV ONE (12:00)
[2021-07-08] MEDS ORDERED: POTASSIUM PHOSPHATE 15 MMOL in SODIUM CHLORIDE 0.9% 250 ML IV ONE (12:30)
--- NOTE | 2021-07-08 13:40 | PROVIDER PROGRESS NOTE ---
Subjective - General Admit Date: 07/05/21 Procedure Performed: HD #3 - Review of Systems General: positive: No symptoms Gastrointestinal: positive: Nausea, Vomiting (Most of the afternoon yesterday) - Other Other Information/Narrative: Much more confused and somewhat agitated today. Could be DTs or other hospital associated delerium. Continues to pass flatus and denies abdominal pain. Ap preciate medicine help and management Objective - Patient Data Reviewed Vital Signs: Yes Vital Signs: Vital Signs x48h Temp Pulse Resp BP BP BP Pulse Ox 07/08/21 11:52 36.7 C 81 18 127/63 95 07/08/21 10:36 128/69 07/08/21 07:38 37.3 C 83 20 133/62 H Weight: Weight 07/06/21 07/07/21 07/08/21 23:59 23:59 23:59 Weight (kg) 98.5 kg Intake & Output: Intake and Output Totals x24h 07/06/21 07/07/21 07/08/21 23:59 23:59 23:59 Intake Total 3303.333 3098.333 1360.000 Output Total 750 450 Balance 2553.333 2648.333 1360.000 - Lab Results Lab Results: 07/08/21 05:24 07/08/21 05:24 Other Lab Results: Lab Results x24hrs 07/08/21 07/08/21 07/08/21 Range/Units 07:36 05:24 05:24 WBC (4.8-10.8) x10^3/uL RBC (4.70-6.10) 10^6/uL Hgb (14.0-18.0) g/dL Hct (42.0-52.0) % MCV (80.0-94.0) fL MCH (27.0-31.0) pg MCHC (32.0-36.0) g/dL RDW (12.0-15.0) % Plt Count (130-450) 10^3/uL MPV (7.4-11.4) fL Neut # (Auto) (1.5-6.6) 10^3/uL Lymph # (Auto) (1.5-3.5) 10^3/uL [place] # (Auto) (0.0-1.0) 10^3/uL Eos # (Auto) (0.0-0.7) 10^3/uL Baso # (Auto) (0.0-0.1) 10^3/uL Absolute Nucleated RBC x10^3/uL Nucleated RBC % /100WBC Sodium 138 (135-145) mmol/L Potassium 2.6 L (3.5-5.0) mmol/L Chloride 104 (101-111) mmol/L Carbon Dioxide 23 (21-32) mmol/L Anion Gap 11.0 (6-13) BUN 16 (6-20) mg/dL Creatinine 1.0 (0.6-1.2) mg/dL Estimated GFR (MDRD) 72 L (>89) Glucose 146 H (70-100) mg/dL POC Whole Bld Glucose 145 H (70 - 100) mg/dL Calcium 7.5 L (8.5-10.3) mg/dL Phosphorus 1.3 L (2.5-4.6) mg/dL Magnesium 1.3 L (1.7-2.8) mg/dL 07/08/21 07/07/21 07/07/21 Range/Units 05:24 20:56 16:33 WBC 8.3 (4.8-10.8) x10^3/uL RBC 3.47 L (4.70-6.10) 10^6/uL Hgb 11.5 L (14.0-18.0) g/dL Hct 33.4 L (42.0-52.0) % MCV 96.3 H (80.0-94.0) fL MCH 33.1 H (27.0-31.0) pg MCHC 34.4 (32.0-36.0) g/dL RDW 12.6 (12.0-15.0) % Plt Count 144 (130-450) 10^3/uL MPV 10.2 (7.4-11.4) fL Neut # (Auto) 6.9 H (1.5-6.6) 10^3/uL Lymph # (Auto) 0.9 L (1.5-3.5) 10^3/uL [place] # (Auto) 0.4 (0.0-1.0) 10^3/uL Eos # (Auto) 0.0 (0.0-0.7) 10^3/uL Baso # (Auto) 0.0 (0.0-0.1) 10^3/uL Absolute Nucleated RBC 0.00 x10^3/uL Nucleated RBC % 0.0 /100WBC Sodium (135-145) mmol/L Potassium (3.5-5.0) mmol/L Chloride (101-111) mmol/L Carbon Dioxide (21-32) mmol/L Anion Gap (6-13) BUN (6-20) mg/dL Creatinine (0.6-1.2) mg/dL Estimated GFR (MDRD) (>89) Glucose (70-100) mg/dL POC Whole Bld Glucose 153 H 162 H (70 - 100) mg/dL Calcium (8.5-10.3) mg/dL Phosphorus (2.5-4.6) mg/dL Magnesium (1.7-2.8) mg/dL - Imaging Results Radiology Imaging: positive: Final report received Imaging Results Comments: Essentially unchanged from original study. I examined the images with Dr. Feliciano and it appears most likely a perforation from a duodenal diverticulum. - Current Medications Current Medications: Current Medications Generic Name Dose Route Start Last Admin Trade Name Freq PRN Reason Stop Dose Admin Atorvastatin Calcium 10 mg 07/06/21 21:00 07/07/21 21:04 Atorvastatin 10 Mg Tablet PO 10 mg QPM FELY Administration Docusate Sodium 250 mg 07/06/21 13:00 07/08/21 10:36 Docusate Sodium 250 Mg Capsule PO 250 mg BID FELY Administration Enoxaparin Sodium 100 mg 07/06/21 21:00 07/08/21 09:00 Enoxaparin 100 Mg/Ml Syringe SUBQ 100 mg BID FELY Administration Piperacillin Sod/Tazobactam 100 mls @ 25 mls/hr 07/06/21 00:00 07/08/21 10:40 Sod 3.375 gm/ Sodium Chloride IV 25 mls/hr Q8H FELY Administration Insulin Aspart 1 - 9 unit 07/06/21 17:00 07/08/21 12:07 Insulin Aspart 300 Unit/3 Ml Pen SUBQ 1 unit 0800,1200,1700,2100 FELY Administration Protocol Metoclopramide HCl 5 mg 07/07/21 09:00 07/08/21 06:32 Metoclopramide 10 Mg/2 Ml Vial IVP 5 mg Q8HR FELY Administration Metoprolol Tartrate 50 mg 07/08/21 00:35 07/08/21 10:36 Metoprolol Tartrate 50 Mg Tablet PO 50 mg BID FELY Administration Multi-Ingredient Ointment 1 applic 07/07/21 04:54 07/07/21 06:01 Zinc Oxide 20% Oint 30 Gm Tube TOP 1 applic PRN PRN Administration Skin Care Ondansetron HCl 4 mg 07/05/21 17:27 07/06/21 15:35 Ondansetron 4 Mg/2 Ml Vial IVP 4 mg Q6HR PRN Administration Nausea / Vomiting Potassium Chloride 20 meq 07/06/21 18:00 07/08/21 10:36 Potassium Chloride 20 Meq Tablet PO 20 meq DAILYWM FELY Administration Sodium Chloride 10 ml 07/05/21 17:22 07/07/21 11:24 Sodium Chloride Flush 0.9% 10 Ml Syringe IVP 10 ml PRN PRN Administration NEEDED PER PROVIDER ORDERS Sodium Chloride 10 ml 07/06/21 01:00 07/08/21 10:40 Sodium Chloride Flush 0.9% 10 Ml Syringe IVP 10 ml 0100,0900,1700 FELY Administration - Physical Exam Abdomen: positive: Non-tender, Nml bowel sounds (Having loose small bowel mo vements. No nausea today), No distention Back: positive: Nml inspection Neurologic/Psychiatric: positive: Disoriented to place, Disoriented to time ABX Reporting Has patient been on IV antibiotics over the past 48 hours?: Yes Impression/Plan - Problem List Problem List: Clinically difficult to evaluate abdomen in the setting of delerium. O denny, improving. I discussed all of the following with Dr. Hernandez, and she is in agreement. 1. Continue Zosyn as he is responding. 2. Stay on clear liquid diet 3. Start TPN 4. Management of DTs per medicine service 5. Plan for gastrograffin swallow to evaluate for leak/seal toward the end of the week.
[2021-07-08 14:17] LABS: CALCIUM 7.6 mg/dL (8.5-10.3); POTASSIUM 3.1 mmol/L (3.5-5.0)
[2021-07-08] MEDS ORDERED: METOCLOPRAMIDE 10 MG/2 ML VIAL IVP PRN (14:41)
[2021-07-08] MEDS: ATORVASTATIN 10 MG TABLET PO SCH (21:02)
[2021-07-09] MEDS: PIPERACILLIN/TAZOBACTAM 3.375 GM in SODIUM CHLORIDE 0.9% MINIBAG 100 ML IV SCH ×3 (00:28→20:00)
[2021-07-09] MEDS: SODIUM CHLORIDE FLUSH 0.9% 10 ML SYRINGE IVP SCH ×4 (00:29→23:48)
[2021-07-09 06:05] LABS: BASOPHILS % (AUTO) 0.1 %; EOSINOPHILS % (AUTO) 0.5 %; HCT - HEMATOCRIT 32.6 % (42.0-52.0); HGB - HEMOGLOBIN 11.3 g/dL (14.0-18.0); LYMPHOCYTES # (AUTO) 0.9 10^3/uL (1.5-3.5); LYMPHOCYTES % (AUTO) 12.2 %; MEAN CORPUSCULAR HEMOGLOBIN 33.1 pg (27.0-31.0); MEAN CORPUSCULAR HGB CONC 34.7 g/dL (32.0-36.0); MEAN CORPUSCULAR VOLUME 95.6 fL (80.0-94.0); MEAN PLATELET VOLUME 9.3 fL (7.4-11.4); MONOCYTES # (AUTO) 0.5 10^3/uL (0.0-1.0); MONOCYTES % (AUTO) 6.6 %; NEUTROPHILS # (AUTO) 5.8 10^3/uL (1.5-6.6); NEUTROPHILS % (AUTO) 79.9 %; PLT - PLATELET COUNT 144 10^3/uL (130-450); RED BLOOD COUNT 3.41 10^6/uL (4.70-6.10); RED CELL DISTRIBUTION WIDTH 12.5 % (12.0-15.0); WHITE BLOOD COUNT 7.3 x10^3/uL (4.8-10.8)
[2021-07-09 06:21] LABS: CALCIUM 7.2 mg/dL (8.5-10.3); CREATININE 0.9 mg/dL (0.6-1.2)
[2021-07-09 06:22] LABS: POTASSIUM 2.5 mmol/L (3.5-5.0)
[2021-07-09] MEDS: METOCLOPRAMIDE 10 MG/2 ML VIAL IVP SCH ×3 (06:29→21:38)
--- NOTE | 2021-07-09 07:45 | PROVIDER PROGRESS NOTE ---
Subjective - Prog Note Date Prog Note Date: 07/09/21 Prog Note Time: 07:48 - Subjective Subjective: No events overnight. He is still sleepy. Current Medications - Current Medications Current Medications: Active Medications Atorvastatin Calcium (Atorvastatin 10 Mg Tablet) 10 mg PO QPM [facility] Last Admin: 07/08/21 21:02 Dose: 10 mg Documented by: Docusate Sodium (Docusate Sodium 250 Mg Capsule) 250 mg PO BID [facility] Last Admin: 07/08/21 21:02 Dose: 250 mg Documented by: Enoxaparin Sodium (Enoxaparin 100 Mg/Ml Syringe) 100 mg SUBQ BID [facility] Last Admin: 07/08/21 21:02 Dose: 100 mg Documented by: Hydromorphone HCl (Hydromorphone 0.5 Mg/0.5 Ml Syringe) 0.5 mg IVP Q2H PRN PRN Reason: Pain 8 to 10 Acetaminophen (Ofirmev) 100 mls @ 400 mls/hr IV Q6HR PRN PRN Reason: PAIN Piperacillin Sod/Tazobactam (Sod 3.375 gm/ Sodium Chloride) 100 mls @ 25 mls/hr IV Q8H [facility] Last Infusion: 07/09/21 04:29 Dose: Infused Documented by: Potassium Chloride (Potassium Chloride) 10 meq in 100 mls @ 100 mls/hr IV Q1H [facility] Stop: 07/09/21 15:59 Insulin Aspart (Insulin Aspart 300 Unit/3 Ml Pen) 1 - 9 unit SUBQ 0800,1200,1700,2100 [facility]; Protocol Last Admin: 07/08/21 21:07 Dose: Not Given Documented by: Lorazepam (Lorazepam 2 Mg/Ml Vial) 0.5 mg IVP Q30M PRN; Protocol PRN Reason: CIWA >8 Metoclopramide HCl (Metoclopramide 10 Mg/2 Ml Vial) 5 mg IVP Q8HR [facility] Last Admin: 07/09/21 06:29 Dose: 5 mg Documented by: Metoprolol Tartrate (Metoprolol Tartrate 50 Mg Tablet) 50 mg PO BID [facility] Last Admin: 07/08/21 21:21 Dose: 50 mg Documented by: Multi-Ingredient Ointment (Zinc Oxide 20% Oint 30 Gm Tube) 1 applic TOP PRN PRN PRN Reason: Skin Care Last Admin: 07/07/21 06:01 Dose: 1 applic Documented by: Ondansetron HCl (Ondansetron 4 Mg/2 Ml Vial) 4 mg IVP Q6HR PRN PRN Reason: Nausea / Vomiting Last Admin: 07/06/21 15:35 Dose: 4 mg Documented by: Potassium Chloride (Potassium Chloride 20 Meq Tablet) 20 meq PO DAILYWM [facility] Last Admin: 07/08/21 10:36 Dose: 20 meq Documented by: Sodium Chloride (Sodium Chloride Flush 0.9% 10 Ml Syringe) 10 ml IVP PRN PRN PRN Reason: NEEDED PER PROVIDER ORDERS Last Admin: 07/07/21 11:24 Dose: 10 ml Documented by: Sodium Chloride (Sodium Chloride Flush 0.9% 10 Ml Syringe) 10 ml IVP 0100, 0900,1700 [facility] Last Admin: 07/09/21 00:29 Dose: 10 ml Documented by: Metformin HCl [Metformin HCl ER] 750 mg PO BID 04/19/13 Cyanocobalamin [Vitamin B-12] 500 mcg PO DAILY 05/09/14 Pnv No.95/Ferrous Fum/Folic AC [ Tablet] 1 tab PO DAILY 05/09/14 Ascorbic Acid [Vitamin C] 500 mg PO BID 03/11/16 Metoprolol Tartrate [Lopressor] 50 mg PO BID 03/11/16 hydroCHLOROthiazide [Hydrochlorothiazide] 25 mg PO DAILY 03/11/16 Ferrous Gluconate [Iron] 240 mg PO DAILY PM 12/09/18 Rosuvastatin Calcium [Crestor] 5 mg PO DAILY 12/09/18 Rivaroxaban [Xarelto] 20 mg PO DAILY 07/05/21 Objective - Vital Signs/Intake & Output Reviewed Vital Signs: Yes Vital Signs: Vital Signs x48h Temp Pulse Resp BP Pulse Ox 07/09/21 05:46 37.7 C 84 22 119/44 L 93 07/09/21 00:30 36.8 C 89 28 H 121/54 L 92 Intake & Output: Intake & Output 07/06/21 07/07/21 07/08/21 07/09/21 23:59 23:59 23:59 23:59 Intake Total 3303.333 3098.333 1965.000 300 Output Total 750 450 Balance 2553.333 2648.333 1965.000 300 - Objective General Appearance: positive: No acute distress, Alert, Other (up in chair, confused to time and place, repetitive statements) Eyes Bilateral: positive: PERRL, EOMI ENT: positive: No signs of dehydration Neck: positive: No JVD. negative: Stiff neck Cardiovascular: positive: Regular rate & rhythm. negative: Gallop/S4, Friction rub Abdomen: positive: No organomegaly, Nml bowel sounds, No distention, Tenderness Skin: positive: Warm, Dry, Pallor Extremities: positive: Full ROM, Pedal edema Neurologic/Psychiatric: positive: Oriented x3, CN's nml (2-12), Motor nml - Lab Results Fish Bones: 07/09/21 05:57 07/09/21 05:57 Other Labs: Lab Results x24hrs 07/09/21 07/09/21 07/09/21 Range/Units 05:57 05:57 00:37 WBC 7.3 (4.8-10.8) x10^3/uL RBC 3.41 L (4.70-6.10) 10^6/uL Hgb 11.3 L (14.0-18.0) g/dL Hct 32.6 L (42.0-52.0) % MCV 95.6 H (80.0-94.0) fL MCH 33.1 H (27.0-31.0) pg MCHC 34.7 (32.0-36.0) g/dL RDW 12.5 (12.0-15.0) % Plt Count 144 (130-450) 10^3/uL MPV 9.3 (7.4-11.4) fL Neut # (Auto) 5.8 (1.5-6.6) 10^3/uL Lymph # (Auto) 0.9 L (1.5-3.5) 10^3/uL Merrick # (Auto) 0.5 (0.0-1.0) 10^3/uL Eos # (Auto) 0.0 (0.0-0.7) 10^3/uL Baso # (Auto) 0.0 (0.0-0.1) 10^3/uL Absolute Nucleated RBC 0.00 x10^3/uL Nucleated RBC % 0.0 /100WBC Sodium 140 (135-145) mmol/L Potassium 2.5 L* (3.5-5.0) mmol/L Chloride 106 (101-111) mmol/L Carbon Dioxide 22 (21-32) mmol/L Anion Gap 12.0 (6-13) BUN 12 (6-20) mg/dL Creatinine 0.9 (0.6-1.2) mg/dL Estimated GFR (MDRD) 81 L (>89) Glucose 144 H (70-100) mg/dL POC Whole Bld Glucose 153 H (70 - 100) mg/dL Calcium 7.2 L (8.5-10.3) mg/dL 07/08/21 07/08/21 07/08/21 Range/Units 20:45 16:31 14:02 WBC (4.8-10.8) x10^3/uL RBC (4.70-6.10) 10^6/uL Hgb (14.0-18.0) g/dL Hct (42.0-52.0) % MCV (80.0-94.0) fL MCH (27.0-31.0) pg MCHC (32.0-36.0) g/dL RDW (12.0-15.0) % Plt Count (130-450) 10^3/uL MPV (7.4-11.4) fL Neut # (Auto) (1.5-6.6) 10^3/uL Lymph # (Auto) (1.5-3.5) 10^3/uL Merrick # (Auto) (0.0-1.0) 10^3/uL Eos # (Auto) (0.0-0.7) 10^3/uL Baso # (Auto) (0.0-0.1) 10^3/uL Absolute Nucleated RBC x10^3/uL Nucleated RBC % /100WBC Sodium 140 (135-145) mmol/L Potassium 3.1 L (3.5-5.0) mmol/L Chloride 105 (101-111) mmol/L Carbon Dioxide 26 (21-32) mmol/L Anion Gap 9.0 (6-13) BUN 14 (6-20) mg/dL Creatinine 1.0 (0.6-1.2) mg/dL Estimated GFR (MDRD) 72 L (>89) Glucose 135 H (70-100) mg/dL POC Whole Bld Glucose 112 H 125 H (70 - 100) mg/dL Calcium 7.6 L (8.5-10.3) mg/dL ABX Reporting Has patient been on IV antibiotics over the past 48 hours?: Yes Assessment/Plan - Problem List (1) Altered mental status Impression: General surgery is concerned because he is described as that alert, lucid gentleman. According to VALERIE, a week ago there was a change in his mental status where he just was not himself. That worsened even more acutely on admission with the presentation of the left lower quadrant pain. He had a history of a benign tumor. No previous history of dementia but noticeably having memory loss over the last few months. No history of a recent fall. He is on anticoagulation for chronic atrial fibrillation. On examination he did have a transient fever to 38.6 on admission before being on antibiotics. He continues to have a low-grade fever. Electrolytes are not severely disrupted. White cell count is high. Differential diagnosis in this gentleman could be cognitive deficit of aging that has gone unrecognized and acutely worsened in an acute illness versus stroke versus brain bleed. Again, he does not have any focal neurological deficits. I ordered a CT of head and it was compared to December 09, 2018. Volume loss and small ischemic disease from where he had his right frontal temporal craniotomy. Focal region of encephalomalacia within the right temporal lobe postsurgical sequelae. 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 Nonemergent outpatient follow-up MRI recommended. Dr. Burnham reviewed the CT with radiology. Even though he was described as having a craniotomy to remove the meningioma, the meningioma was not completely removed. Only partially. As such what is left behind is been slightly growing. But very, very slowly and only may be 1 mm. As such I do not think this is the cause of his own mental status. My presumption was that of a metabolic encephalopathy that was resolving due to infection. But last night he is having quite a bit of delirium, hallucinations. This is an elderly gentleman who is already having mild cognitive deficits and has a history of alcohol abuse. So I think his encephalopathy has returned from a different cause. Plan:Continue Low-dose benzodiazepines to avoid oversedation to at least control some of the hallucinations that may be from alcohol withdrawal. VALERIE feels it's not alcohol withdrawal. When he had his meningioma surgery he has severe withdrawal. But he protests and states he drinks 2-3 times a week and only 1-2 at a time. He is not tachycardic or hypertensive The only other cause of hallucinations could be simple delirium in an elderly patient with cognitive deficit. Qualifiers: Altered mental status type: disorientation Qualified Code(s): R41.0 - Disorientation, unspecified (2) Intra-abdominal abscess Conclusion/Plan: CAT scan reviewed with general surgery and this area of anatomic confluence is in the left upper the left mid abdomen causing this abcess. It really is not accessible to interventional radiology and drainage. Differential diagnosis for this includes diverticulitis with fistula, abscess formation not pertaining to diverticulitis, rupture of organ such as duodenum besides bowel. Dr. Burnham would like to treat conservatively since this would be a difficult surgical case to [facility]. She is hoping that he will respond to antibiotics. If the patient continues to have an abscess or increased size of abscess he will need to be transferred. If some of the inflammation is resolved or improved, he may be able to go home with oral antibiotics. White cell count was elevated on admission at 14.3. It has been coming down and yesterday is 8.3 and today is 7.[address] of abdomen shows no change in the size of the abcess. I shared the results with him and the DIL Repeat CT shows more of a ruptured duodenal diverticuli. Very difficult to get to with IR. Plan: As per General Surgery. Case discussed. TPN will be ordered today PICC line for TPN ordered as well. (3) Controlled type 2 diabetes mellitus without complication, without long-term current use of insulin Conclusion/Plan: He was initially on a Soft mechanical diet. Since it is not being tolerated he has been changed to a clear liquid diet. He is usually on metformin at home. He is receiving 1 to 3 units with each meal. Tolerating clear liquids. Plan: I considered starting him on Lantus. But he does not require that much insulin. A1c is 7%. At this time we will continue current sliding scale. Resume Metformin when he gets home. With the addition of TPN will closely watch the effect on his glucose. Increase insulin SQ as needed. (4) Alcohol abuse Conclusion/Plan: Delirium started 07/07 pm. Daughter in law feels that his use of alcohol is not that much and he shouldn't be in DTs. He did have withdrawal with his cr aniotomy and delirium was severe then. Will start CIWA protocol with low-dose Ativan. Unfortunately an elderly gentleman with cognitive deficits that are mild and present already, he may get even more confused. (5) Anticoagulant long-term use Conclusion/Plan: This is for chronic atrial fibrillation as well as hx of DVT and PE. Will transition to lovenox while he is here in case he does have to have emergency surgery or for possible transfer for a surgical procedure. Today he is to get a PICC line. (6) Hypertension Conclusion/Plan: usually on metoprolol and HCTZ. Hypotensive 07/08 and received a fluid bolus. I have already resumed his metroprolol to avoid rebound tachycardia, but hold of on HCTZ at this time. General surgery had resumed his hydrochlorothiazide. I stopped that. This morning he is stable. Qualifiers: Hypertension type: primary hypertension Qualified Code(s): I10 - Essential (primary) hypertension (7) Hypokalemia Conclusion/Plan: After P.o. supplementation. His potassium was still low. Consistently low in spite of 80 meq K riders at a time. Replace again today but will increase the usual amount in TPN to cover. (6) Hypertension Qualifiers: Hypertension type: primary hypertension Qualified Code(s): I10 - Essential (primary) hypertension
[2021-07-09] MEDS: INSULIN ASPART 300 UNIT/3 ML PEN SUBQ SCH ×4 (08:08→21:37)
[2021-07-09] MEDS: POTASSIUM CHLOR 10 MEQ/100 ML 10 MEQ/100 ML BAG IV SCH ×8 (08:15→18:03)
[2021-07-09] MEDS: METOPROLOL TARTRATE 50 MG TABLET PO SCH ×2 (08:26→21:35)
[2021-07-09] MEDS: ENOXAPARIN 100 MG/ML SYRINGE SUBQ SCH ×2 (08:30→21:37)
[2021-07-09] MEDS: POTASSIUM CHLORIDE 20 MEQ TABLET PO SCH (08:30)
--- NOTE | 2021-07-09 11:19 | XRAY Report ---
PROCEDURE: Chest for Line Placement INDICATIONS: PICC placement TECHNIQUE: One view of the chest was acquired. COMPARISON: 12/09/[address] chest FINDINGS: Surgical changes and devices: Left upper cavity PICC terminates in the region of the upper SVC. Lungs and pleura: No pleural effusions or pneumothorax. Lungs are clear. Mediastinum: Mediastinal contours appear normal. Heart size is normal. Bones and chest wall: No suspicious bony lesions. Overlying soft tissues appear unremarkable. IMPRESSION: Left upper extremity PICC appears to terminate in the region of the upper SVC. Reviewed by: Rudolph Romeo MD on 07/09/2021 11:18 AM PDT Approved by: Rudolph Romeo MD on 07/09/2021 11:18 AM PDT Station ID: [id number]
--- NOTE | 2021-07-09 11:52 | ANESTHESIA PROCEDURE NOTE ---
Anesth Central Line Template - Central Line Central Line Preparation: Consent Obtained, Time out completed, Ultrasound used, Sterile prep and drape Central line location: Left Basilic Central line type: PICC Double Lumen Central line catheter tip site resides: Superior vena cava (SVC) Central line aftercare: Secured, Placement confirmed, No complications, Bundle checklist complete, Pt tolerated well
[2021-07-09] MEDS: DOCUSATE SODIUM 250 MG CAPSULE PO SCH ×2 (12:26→21:35)
[2021-07-09] MEDS: ZINC OXIDE 20% OINT 30 GM TUBE TOP PRN (12:47)
[2021-07-09] MEDS ORDERED: levoFLOXacin 750 MG/150 ML 750 MG/150 ML BAG IV SCH (17:00)
[2021-07-09] MEDS ORDERED: FAT EMULSION 20% 250 ML IV SCH (19:00)
[2021-07-09] MEDS ORDERED: TPN (CLINIMIX E 5/15) 2,000 ML with MULTIVITAMIN 10 ML, TRACE ELEMENTS 1 ML, POTASSIUM ... IV SCH ×4 (19:00)
[2021-07-09] MEDS: ATORVASTATIN 10 MG TABLET PO SCH (21:35)
[2021-07-09] MEDS: SODIUM CHLORIDE FLUSH 0.9% 10 ML SYRINGE IVP PRN (23:49)
[2021-07-10] MEDS: SODIUM CHLORIDE FLUSH 0.9% 10 ML SYRINGE IVP PRN (03:43)
[2021-07-10] MEDS: PIPERACILLIN/TAZOBACTAM 3.375 GM in SODIUM CHLORIDE 0.9% MINIBAG 100 ML IV SCH ×2 (03:43→12:09)
[2021-07-10] MEDS: METOCLOPRAMIDE 10 MG/2 ML VIAL IVP SCH ×3 (05:23→21:04)
[2021-07-10 05:37] LABS: BASOPHILS % (AUTO) 0.1 %; EOSINOPHILS # (AUTO) 0.1 10^3/uL (0.0-0.7); EOSINOPHILS % (AUTO) 1.4 %; HCT - HEMATOCRIT 30.6 % (42.0-52.0); HGB - HEMOGLOBIN 10.4 g/dL (14.0-18.0); LYMPHOCYTES # (AUTO) 1.1 10^3/uL (1.5-3.5); LYMPHOCYTES % (AUTO) 13.6 %; MEAN CORPUSCULAR HEMOGLOBIN 32.6 pg (27.0-31.0); MEAN CORPUSCULAR VOLUME 95.9 fL (80.0-94.0); MEAN PLATELET VOLUME 9.7 fL (7.4-11.4); MONOCYTES # (AUTO) 0.6 10^3/uL (0.0-1.0); MONOCYTES % (AUTO) 6.9 %; NEUTROPHILS # (AUTO) 6.1 10^3/uL (1.5-6.6); NEUTROPHILS % (AUTO) 76.2 %; PLT - PLATELET COUNT 145 10^3/uL (130-450); RED BLOOD COUNT 3.19 10^6/uL (4.70-6.10); RED CELL DISTRIBUTION WIDTH 12.5 % (12.0-15.0)
[2021-07-10 05:43] LABS: INR 1.3 (0.8-1.2); PT - PROTHROMBIN TIME 14.5 secs (9.9-12.6)
[2021-07-10 05:51] LABS: ALBUMIN 2.5 g/dL (3.2-5.5); ALBUMIN/GLOBULIN RATIO 0.9 (1.0-2.2); BILIRUBIN,TOTAL 0.8 mg/dL (0.2-1.0); CALCIUM 7.4 mg/dL (8.5-10.3); CREATININE 0.9 mg/dL (0.6-1.2); MAGNESIUM 1.6 mg/dL (1.7-2.8); PHOSPHORUS 1.5 mg/dL (2.5-4.6); POTASSIUM 2.9 mmol/L (3.5-5.0); TOTAL PROTEIN 5.2 g/dL (6.7-8.2)
--- NOTE | 2021-07-10 08:00 | PROVIDER PROGRESS NOTE ---
Subjective - Prog Note Date Prog Note Date: 07/10/21 Prog Note Time: 08:09 - Subjective Pt reports feeling: Improved Subjective: He is sitting upright in his chair. Perusing the [place] newspapers as well as the [place] newspapers. Alert, lucid. DIL at the bedside. He is without pain. No appetite. No fevers. Current Medications - Current Medications Current Medications: Active Medications Atorvastatin Calcium (Atorvastatin 10 Mg Tablet) 10 mg PO QPM [facility] Last Admin: 07/09/21 21:35 Dose: 10 mg Documented by: Docusate Sodium (Docusate Sodium 250 Mg Capsule) 250 mg PO BID [facility] Last Admin: 07/09/21 21:35 Dose: 250 mg Documented by: Enoxaparin Sodium (Enoxaparin 100 Mg/Ml Syringe) 100 mg SUBQ BID [facility] Last Admin: 07/09/21 21:37 Dose: 100 mg Documented by: Hydromorphone HCl (Hydromorphone 0.5 Mg/0.5 Ml Syringe) 0.5 mg IVP Q2H PRN PRN Reason: Pain 8 to 10 Acetaminophen (Ofirmev) 100 mls @ 400 mls/hr IV Q6HR PRN PRN Reason: PAIN Multivitamins 10 ml/ TRACE ELEMENTS 1 ml/ Potassium Chloride 80 meq/ Amino Ac/Electrol/Dextrose/Calcium 2,051 mls @ 40 mls/hr IV TPN/PPN [facility] Last Infusion: 07/09/21 22:26 Dose: 40 mls/hr Documented by: Fat Emulsion Intravenous (Intralipid 20%) 250 mls @ 21 mls/hr IV TPN/PPN [facility] Last Infusion: 07/10/21 06:50 Dose: Infused Documented by: Piperacillin Sod/Tazobactam (Sod 3.375 gm/ Sodium Chloride) 100 mls @ 25 mls/hr IV Q8H [facility] Last Admin: 07/10/21 03:43 Dose: 25 mls/hr Documented by: Potassium Chloride (Potassium Chloride) 10 meq in 100 mls @ 100 mls/hr IV Q1H [facility] Stop: 07/10/21 11:59 Insulin Aspart (Insulin Aspart 300 Unit/3 Ml Pen) 1 - 9 unit SUBQ 0800,12 00,1700,2100 [facility]; Protocol Last Admin: 07/09/21 21:37 Dose: 3 unit Documented by: Lorazepam (Lorazepam 2 Mg/Ml Vial) 0.5 mg IVP Q30M PRN; Protocol PRN Reason: CIWA >8 Metoclopramide HCl (Metoclopramide 10 Mg/2 Ml Vial) 5 mg IVP Q8HR [facility] Last Admin: 07/10/21 05:23 Dose: 5 mg Documented by: Metoprolol Tartrate (Metoprolol Tartrate 50 Mg Tablet) 50 mg PO BID [facility] Last Admin: 07/09/21 21:35 Dose: 50 mg Documented by: Multi-Ingredient Ointment (Zinc Oxide 20% Oint 30 Gm Tube) 1 applic TOP PRN PRN PRN Reason: Skin Care Last Admin: 07/09/21 12:47 Dose: 1 applic Documented by: Ondansetron HCl (Ondansetron 4 Mg/2 Ml Vial) 4 mg IVP Q6HR PRN PRN Reason: Nausea / Vomiting Last Admin: 07/06/21 15:35 Dose: 4 mg Documented by: Potassium Chloride (Potassium Chloride 20 Meq Tablet) 20 meq PO DAILYWM [facility] Last Admin: 07/09/21 08:30 Dose: 20 meq Documented by: Sodium Chloride (Sodium Chloride Flush 0.9% 10 Ml Syringe) 10 ml IVP PRN PRN PRN Reason: NEEDED PER PROVIDER ORDERS Last Admin: 07/10/21 03:43 Dose: 10 ml Documented by: Sodium Chloride (Sodium Chloride Flush 0.9% 10 Ml Syringe) 10 ml IVP 0100,0900,1700 [facility] Last Admin: 07/09/21 23:48 Dose: 10 ml Documented by: Metformin HCl [Metformin HCl ER] 750 mg PO BID 04/19/13 Cyanocobalamin [Vitamin B-12] 500 mcg PO DAILY 05/09/14 Pnv No.95/Ferrous Fum/Folic AC [ Tablet] 1 tab PO DAILY 05/09/14 Ascorbic Acid [Vitamin C] 500 mg PO BID 03/11/16 Metoprolol Tartrate [Lopressor] 50 mg PO BID 03/11/16 hydroCHLOROthiazide [Hydrochlorothiazide] 25 mg PO DAILY 03/11/16 Ferrous Gluconate [Iron] 240 mg PO DAILY PM 12/09/18 Rosuvastatin Calcium [Crestor] 5 mg PO DAILY 12/09/18 Rivaroxaban [Xarelto] 20 mg PO DAILY 07/05/21 Objective - Vital Signs/Intake & Output Reviewed Vital Signs: Yes Vital Signs: Vital Signs x48h Temp Pulse Resp BP Pulse Ox 07/10/21 03:47 37.2 C 74 22 125/58 L 93 Intake & Output: Intake & Output 07/07/21 07/08/21 07/09/21 07/10/21 23:59 23:59 23:59 23:59 Intake Total 3098.333 8078.274 8035.250 374.75 Output Total 450 Balance 2648.333 9334.528 3881.250 374.75 - Objective General Appearance: positive: No acute distress, Alert, Other (Sitting up, wearing glasses, reading the newspaper) Eyes Bilateral: positive: PERRL, EOMI ENT: positive: No signs of dehydration Neck: positive: No JVD. negative: Stiff neck Respiratory: positive: No respiratory distress. negative: Wheezes, Rales, Rhonchi Cardiovascular: positive: Regular rate & rhythm. negative: Gallop/S4, Friction rub Abdomen: positive: Non-tender, No organomegaly, Nml bowel sounds, No distention, Other (Large obese abdominal pannus) Skin: positive: Warm, Dry Extremities: positive: Full ROM, Pedal edema (CAnkles) Neurologic/Psychiatric: positive: Oriented x3, CN's nml (2-12) (glasses, mild deafness), Motor nml - Lab Results Fish Bones: 07/10/21 05:30 07/10/21 05:30 Other Labs: Lab Results x24hrs 07/10/21 07/10/21 07/10/21 Range/Units 05:30 05:30 05:30 WBC 8.0 (4.8-10.8) x10^3/uL RBC 3.19 L (4.70-6.10) 10^6/uL Hgb 10.4 L (14.0-18.0) g/dL Hct 30.6 L (42.0-52.0) % MCV 95.9 H (80.0-94.0) fL MCH 32.6 H (27.0-31.0) pg MCHC 34.0 (32.0-36.0) g/dL RDW 12.5 (12.0-15.0) % Plt Count 145 (130-450) 10^3/uL MPV 9.7 (7.4-11.4) fL Neut # (Auto) 6.1 (1.5-6.6) 10^3/uL Lymph # (Auto) 1.1 L (1.5-3.5) 10^3/uL [place] # (Auto) 0.6 (0.0-1.0) 10^3/uL Eos # (Auto) 0.1 (0.0-0.7) 10^3/uL Baso # (Auto) 0.0 (0.0-0.1) 10^3/uL Absolute Nucleated RBC 0.00 x10^3/uL Nucleated RBC % 0.0 /100WBC PT 14.5 H (9.9-12.6) secs INR 1.3 H (0.8-1.2) Sodium 136 (135-145) mmol/L Potassium 2.9 L (3.5-5.0) mmol/L Chloride 107 (101-111) mmol/L Carbon Dioxide 22 (21-32) mmol/L Anion Gap 7.0 (6-13) BUN 9 (6-20) mg/dL Creatinine 0.9 (0.6-1.2) mg/dL Estimated GFR (MDRD) 81 L (>89) Glucose 200 H (70-100) mg/dL POC Whole Bld Glucose (70 - 100) mg/dL Calcium 7.4 L (8.5-10.3) mg/dL Phosphorus 1.5 L (2.5-4.6) mg/dL Magnesium 1.6 L (1.7-2.8) mg/dL Total Bilirubin 0.8 (0.2-1.0) mg/dL AST 23 (10-42) IU/L ALT 24 (10-60) IU/L Alkaline Phosphatase 50 (42-121) IU/L Total Protein 5.2 L (6.7-8.2) g/dL Albumin 2.5 L (3.2-5.5) g/dL Globulin 2.7 (2.1-4.2) g/dL Albumin/Globulin Ratio 0.9 L (1.0-2.2) Prealbumin 7 L (18-45) mg/dL Triglycerides 150 H ( - 149) mg/dL 07/09/21 07/09/2121 Range/Units 21:06 16:45 11:30 WBC (4.8-10.8) x10^3/uL RBC (4.70-6.10) 10^6/uL Hgb (14.0-18.0) g/dL Hct (42.0-52.0) % MCV (80.0-94.0) fL MCH (27.0-31.0) pg MCHC (32.0-36.0) g/dL RDW (12.0-15.0) % Plt Count (130-450) 10^3/uL MPV (7.4-11.4) fL Neut # (Auto) (1.5-6.6) 10^3/uL Lymph # (Auto) (1.5-3.5) 10^3/uL [place] # (Auto) (0.0-1.0) 10^3/uL Eos # (Auto) (0.0-0.7) 10^3/uL Baso # (Auto) (0.0-0.1) 10^3/uL Absolute Nucleated RBC x10^3/uL Nucleated RBC % /100WBC PT (9.9-12.6) secs INR (0.8-1.2) Sodium (135-145) mmol/L Potassium (3.5-5.0) mmol/L Chloride (101-111) mmol/L Carbon Dioxide (21-32) mmol/L Anion Gap (6-13) BUN (6-20) mg/dL Creatinine (0.6-1.2) mg/dL Estimated GFR (MDRD) (>89) Glucose (70-100) mg/dL POC Whole Bld Glucose 185 H 125 H 176 H (70 - 100) mg/dL Calcium (8.5-10.3) mg/dL Phosphorus (2.5-4.6) mg/dL Magnesium (1.7-2.8) mg/dL Total Bilirubin (0.2-1.0) mg/dL AST (10-42) IU/L ALT (10-60) IU/L Alkaline Phosphatase (42-121) IU/L Total Protein (6.7-8.2) g/dL Albumin (3.2-5.5) g/dL Globulin (2.1-4.2) g/dL Albumin/Globulin Ratio (1.0-2.2) Prealbumin (18-45) mg/dL Triglycerides ( - 149) mg/dL ABX Reporting Has patient been on IV antibiotics over the past 48 hours?: Yes Assessment/Plan - Problem List (1) Intra-abdominal abscess Impression: CAT scan reviewed with general surgery and this area of anatomic confluence is in the left upper the left mid abdomen causing this abcess. It really is not accessible to interventional radiology and drainage. Differential diagnosis for this includes diverticulitis with fistula, abscess formation not pertaining to diverticulitis, rupture of organ such as duodenum besides bowel. Dr. Burnham would like to treat conservatively since this would be a difficult surgical case to do [facility]. She is hoping that he will respond to antibiotics. If the patient continues to have an abscess or increased size of abscess he will need to be transferred. If some of the inflammation is resolved or improved, he may be able to go home with oral antibiotics. White cell count was elevated on admission at 14.3. It has been coming down to 8.3 >>7.3>>8.[address] of abdomen shows no change in the size of the abcess. 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 Very difficult to get to with IR. Plan: As per General Surgery. Case discussed. PICC line placed. TPN ordered and started 18:00 07/09 General surgery is hoping to have this heal on its own. Without having to open him up. To do so we are minimizing his p.o. intake and supplementing with TPN but Surgery will be advancing diet to see how he does. (2) Controlled type 2 diabetes mellitus without complication, without long-term current use of insulin Conclusion/Plan: He was initially on a Soft mechanical diet. Since it is not being tolerated he has been changed to a clear liquid diet. He is usually on metformin at home. He is receiving 1 to 3 units with each meal. Tolerating clear liquids. Plan: I considered starting him on Lantus. But he does not require that much insulin. A1c is 7%. At this time we will continue current sliding scale. Resume Metformin when he gets home. With the addition of TPN we are watching the effect on his glucose. Increase insulin SQ as needed.After TPN started, last night his glucose was 185. This morning's glucose is 200. (3) Alcohol abuse Conclusion/Plan: Delirium started 07/07 pm. Resolved today. Still sun downs a bit at night. Alyssia mcdaniel in law feels that his use of alcohol is not that much and he shouldn't be in DTs. He did have withdrawal with his craniotomy and delirium was severe then. Will start CIWA protocol with low-dose Ativan. Unfortunately an elderly gentleman with cognitive deficits that are mild and present already, he may get even more confused. Plan is to keep him up and awake/walking/engaged during the day and get him tired enough he sleeps thru the night. (4) Anticoagulant long-term use Conclusion/Plan: This is for chronic atrial fibrillation as well as hx of DVT and PE. Will transition to lovenox while he is here in case he does have to have emergency surgery or for possible transfer for a surgical procedure. PICC line 07/09 Resume the xarelto at discharge. (5) Hypertension Conclusion/Plan: usually on metoprolol and HCTZ. Hypotensive 07/08 and received a fluid bolus. I have already resumed his metroprolol to avoid rebound tachycardia, but hold of on HCTZ at this time. General surgery had resumed his hydrochlorothiazide. I stopped that. Stable BP since then Qualifiers: Hypertension type: primary hypertension Qualified Code(s): I10 - Essential (primary) hypertension (6) Hypokalemia/hypomagnesemia/hypophosphatemia Conclusion/Plan: This gentleman has received p.o. supplementation and aggressive IV K riders. And consistently low in spite of of 80 mEq riders at a time. He has been started on TPN and has 140 mEq over 2 L. At a 40 cc an hour drip he is probably getting less than 3 mEq an hour. I will give him another 40 mEq rider today. He will receive riders for the Phos and Mag. Discussed with pharmacist today at length for our plan (7) Altered mental status resolved Impression: Differential diagnosis at the beginning was infection, cognitive deficit of aging that was unrecognized resulting in delirium in the hospital as patient, stroke, intracranial bleeding such as a subdural (he is on anticoagulation) or alcohol withdrawal. I ordered a CT of head and it was compared to December 09, 2018. Volume loss and small ischemic disease from where he had his right frontal temporal craniotomy. Focal region of encephalomalacia within the right temporal lobe postsurgical sequelae. 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 Nonemergent outpatient follow-up MRI recommended. His previous meningioma was removed as much as possible. But there was still some left behind and it appears to be slightly enlarging but not clinically relevant. My presumption was that of a metabolic encephalopathy that was resolving due to infection. He then began having quite a bit of delirium, hallucinations. Daughter in law is very positive that he does not drink as much as he used to. With his meningioma surgery he did have full-blown withdrawal. I started him on low-dose benzodiazepine. By yesterday, late morning, he was back to baseline. Alert. Oriented. Back to being himself. We will continue to monitor for signs and symptoms of delirium. Qualifiers: Altered mental status type: disorientation Qualified Code(s): R41.0 - Disorientation, unspecified
[2021-07-10] MEDS: ENOXAPARIN 100 MG/ML SYRINGE SUBQ SCH ×2 (08:21→20:57)
[2021-07-10] MEDS: METOPROLOL TARTRATE 50 MG TABLET PO SCH ×2 (08:22→20:56)
[2021-07-10] MEDS: POTASSIUM CHLORIDE 20 MEQ TABLET PO SCH (08:22)
[2021-07-10] MEDS: INSULIN ASPART 300 UNIT/3 ML PEN SUBQ SCH ×4 (08:28→21:02)
[2021-07-10] MEDS: DOCUSATE SODIUM 250 MG CAPSULE PO SCH (08:29)
[2021-07-10] MEDS: POTASSIUM CHLOR 10 MEQ/100 ML 10 MEQ/100 ML BAG IV SCH ×4 (09:41→13:01)
[2021-07-10] MEDS: SODIUM CHLORIDE FLUSH 0.9% 10 ML SYRINGE IVP SCH ×2 (09:41→18:44)
--- NOTE | 2021-07-10 10:34 | PROVIDER PROGRESS NOTE ---
Subjective - General Admit Date: 07/05/21 Procedure Performed: HD #3 - Review of Systems General: positive: No symptoms Gastrointestinal: positive: Nausea, Vomiting (Most of the afternoon yesterday) - Other Other Information/Narrative: Late entry. Patient seen 07-09-2021 at 1615. Much more clear today and oriented x 3. Still not hungry. Denies any discomfort. Has had multiple stools and declined stool softener this morning. Afebrile. Objective - Patient Data Vital Signs: Vital Signs x48h Temp Pulse Resp BP BP Pulse Ox 07/10/21 08:22 133/60 H 07/10/21 08:18 36.6 C 72 20 134/56 H 96 07/10/21 03:47 37.2 C 74 22 125/58 L 93 Weight: Weight 07/08/21 07/09/21 07/10/21 23:59 23:59 23:59 Weight (kg) 98.5 kg Intake & Output: Intake and Output Totals x24h 07/08/21 07/09/21 07/10/21 23:59 23:59 23:59 Intake Total 3384.712 9433.250 714.75 Balance 1050.264 0152.250 714.75 - Lab Results Lab Results: 07/10/21 05:30 07/10/21 05:30 Other Lab Results: Lab Results x24hrs 07/10/21 07/10/21 07/10/21 Range/Units 07:54 05:30 05:30 WBC (4.8-10.8) x10^3/uL RBC (4.70-6.10) 10^6/uL Hgb (14.0-18.0) g/dL Hct (42.0-52.0) % MCV (80.0-94.0) fL MCH (27.0-31.0) pg MCHC (32.0-36.0) g/dL RDW (12.0-15.0) % Plt Count (130-450) 10^3/uL MPV (7.4-11.4) fL Neut # (Auto) (1.5-6.6) 10^3/uL Lymph # (Auto) (1.5-3.5) 10^3/uL [place] # (Auto) (0.0-1.0) 10^3/uL Eos # (Auto) (0.0-0.7) 10^3/uL Baso # (Auto) (0.0-0.1) 10^3/uL Absolute Nucleated RBC x10^3/uL Nucleated RBC % /100WBC PT 14.5 H (9.9-12.6) secs INR 1.3 H (0.8-1.2) Sodium 136 (135-145) mmol/L Potassium 2.9 L (3.5-5.0) mmol/L Chloride 107 (101-111) mmol/L Carbon Dioxide 22 (21-32) mmol/L Anion Gap 7.0 (6-13) BUN 9 (6-20) mg/dL Creatinine 0.9 (0.6-1.2) mg/dL Estimated GFR (MDRD) 81 L (>89) Glucose 200 H (70-100) mg/dL POC Whole Bld Glucose 220 H (70 - 100) mg/dL Calcium 7.4 L (8.5-10.3) mg/dL Phosphorus 1.5 L (2.5-4.6) mg/dL Magnesium 1.6 L (1.7-2.8) mg/dL Total Bilirubin 0.8 (0.2-1.0) mg/dL AST 23 (10-42) IU/L ALT 24 (10-60) IU/L Alkaline Phosphatase 50 (42-121) IU/L Total Protein 5.2 L (6.7-8.2) g/dL Albumin 2.5 L (3.2-5.5) g/dL Globulin 2.7 (2.1-4.2) g/dL Albumin/Globulin Ratio 0.9 L (1.0-2.2) Prealbumin 7 L (18-45) mg/dL Triglycerides 150 H ( - 149) mg/dL 07/10/21 07/09/21 07/09/21 Range/Units 05:30 21:06 16:45 WBC 8.0 (4.8-10.8) x10^3/uL RBC 3.19 L (4.70-6.10) 10^6/uL Hgb 10.4 L (14.0-18.0) g/dL Hct 30.6 L (42.0-52.0) % MCV 95.9 H (80.0-94.0) fL MCH 32.6 H (27.0-31.0) pg MCHC 34.0 (32.0-36.0) g/dL RDW 12.5 (12.0-15.0) % Plt Count 145 (130-450) 10^3/uL MPV 9.7 (7.4-11.4) fL Neut # (Auto) 6.1 (1.5-6.6) 10^3/uL Lymph # (Auto) 1.1 L (1.5-3.5) 10^3/uL [place] # (Auto) 0.6 (0.0-1.0) 10^3/uL Eos # (Auto) 0.1 (0.0-0.7) 10^3/uL Baso # (Auto) 0.0 (0.0-0.1) 10^3/uL Absolute Nucleated RBC 0.00 x10^3/uL Nucleated RBC % 0.0 /100WBC PT (9.9-12.6) secs INR (0.8-1.2) Sodium (135-145) mmol/L Potassium (3.5-5.0) mmol/L Chloride (101-111) mmol/L Carbon Dioxide (21-32) mmol/L Anion Gap (6-13) BUN (6-20) mg/dL Creatinine (0.6-1.2) mg/dL Estimated GFR (MDRD) (>89) Glucose (70-100) mg/dL POC Whole Bld Glucose 185 H 125 H (70 - 100) mg/dL Calcium (8.5-10.3) mg/dL Phosphorus (2.5-4.6) mg/dL Magnesium (1.7-2.8) mg/dL Total Bilirubin (0.2-1.0) mg/dL AST (10-42) IU/L ALT (10-60) IU/L Alkaline Phosphatase (42-121) IU/L Total Protein (6.7-8.2) g/dL Albumin (3.2-5.5) g/dL Globulin (2.1-4.2) g/dL Albumin/Globulin Ratio (1.0-2.2) Prealbumin (18-45) mg/dL Triglycerides ( - 149) mg/dL 07/09/21 Range/Units 11:30 WBC (4.8-10.8) x10^3/uL RBC (4.70-6.10) 10^6/uL Hgb (14.0-18.0) g/dL Hct (42.0-52.0) % MCV (80.0-94.0) fL MCH (27.0-31.0) pg MCHC (32.0-36.0) g/dL RDW (12.0-15.0) % Plt Count (130-450) 10^3/uL MPV (7.4-11.4) fL Neut # (Auto) (1.5-6.6) 10^3/uL Lymph # (Auto) (1.5-3.5) 10^3/uL [place] # (Auto) (0.0-1.0) 10^3/uL Eos # (Auto) (0.0-0.7) 10^3/uL Baso # (Auto) (0.0-0.1) 10^3/uL Absolute Nucleated RBC x10^3/uL Nucleated RBC % /100WBC PT (9.9-12.6) secs INR (0.8-1.2) Sodium (135-145) mmol/L Potassium (3.5-5.0) mmol/L Chloride (101-111) mmol/L Carbon Dioxide (21-32) mmol/L Anion Gap (6-13) BUN (6-20) mg/dL Creatinine (0.6-1.2) mg/dL Estimated GFR (MDRD) (>89) Glucose (70-100) mg/dL POC Whole Bld Glucose 176 H (70 - 100) mg/dL Calcium (8.5-10.3) mg/dL Phosphorus (2.5-4.6) mg/dL Magnesium (1.7-2.8) mg/dL Total Bilirubin (0.2-1.0) mg/dL AST (10-42) IU/L ALT (10-60) IU/L Alkaline Phosphatase (42-121) IU/L Total Protein (6.7-8.2) g/dL Albumin (3.2-5.5) g/dL Globulin (2.1-4.2) g/dL Albumin/Globulin Ratio (1.0-2.2) Prealbumin (18-45) mg/dL Triglycerides ( - 149) mg/dL - Current Medications Current Medications: Current Medications Generic Name Dose Route Start Last Admin Trade Name Freq PRN Reason Stop Dose Admin Atorvastatin Calcium 10 mg 07/06/21 21:00 07/09/21 21:35 Atorvastatin 10 Mg Tablet PO 10 mg QPM FELY Administration Docusate Sodium 250 mg 07/06/21 13:00 07/10/21 08:29 Docusate Sodium 250 Mg Capsule PO Not Given BID [facility] Enoxaparin Sodium 100 mg 07/06/21 21:00 07/10/21 08:21 Enoxaparin 100 Mg/Ml Syringe SUBQ 100 mg BID FELY Administration Multivitamins 10 ml/ TRACE 2,051 mls @ 40 mls/hr 07/09/21 19:00 07/09/21 22:26 ELEMENTS 1 ml/ Potassium IV 40 mls/hr Chloride 80 meq/ Amino Ac/ TPN/PPN FELY Infusion Electrol/Dextrose/Calcium Fat Emulsion Intravenous 250 mls @ 21 mls/hr 07/09/21 19:00 07/10/21 06:50 Intralipid 20% IV Infused TPN/PPN FELY Infusion Piperacillin Sod/Tazobactam 100 mls @ 25 mls/hr 07/09/21 20:00 07/10/21 08:12 Sod 3.375 gm/ Sodium Chloride IV Infused Q8H FELY Infusion Potassium Chloride 10 meq in 100 mls @ 100 mls/hr 07/10/21 08:00 07/10/21 09:41 Potassium Chloride IV 07/10/21 11:59 100 mls/hr Q1H FELY Administration Insulin Aspart 1 - 9 unit 07/06/21 17:00 07/10/21 08:28 Insulin Aspart 300 Unit/3 Ml Pen SUBQ 3 unit 0800,1200,1700,2100 [facility] Administration Protocol Metoclopramide HCl 5 mg 07/07/21 09:00 07/10/21 05:23 Metoclopramide 10 Mg/2 Ml Vial IVP 5 mg Q8HR FELY Administration Metoprolol Tartrate 50 mg 07/08/21 00:35 07/10/21 08:22 Metoprolol Tartrate 50 Mg Tablet PO 50 mg BID FELY Administration Multi-Ingredient Ointment 1 applic 07/07/21 04:54 07/09/21 12:47 Zinc Oxide 20% Oint 30 Gm Tube TOP 1 applic PRN PRN Administration Skin Care Ondansetron HCl 4 mg 07/05/21 17:27 07/06/21 15:35 Ondansetron 4 Mg/2 Ml Vial IVP 4 mg Q6HR PRN Administration Nausea / Vomiting Potassium Chloride 20 meq 07/06/21 18:00 07/10/21 08:22 Potassium Chloride 20 Meq Tablet PO 20 meq DAILYWM FELY Administration Sodium Chloride 10 ml 07/05/21 17:22 07/10/21 03:43 Sodium Chloride Flush 0.9% 10 Ml Syringe IVP 10 ml PRN PRN Administration NEEDED PER PROVIDER ORDERS Sodium Chloride 10 ml 07/06/21 01:00 07/10/21 09:41 Sodium Chloride Flush 0.9% 10 Ml Syringe IVP 10 ml 0100,0900,1700 FELY Administration - Physical Exam Comments/Other: Abdomen is completely soft and non-tender with active bowel sounds. ABX Reporting Has patient been on IV antibiotics over the past 48 hours?: Yes Impression/Plan - Problem List Problem List: Appreciate Hospitalist service so much Assessment: Improving but we continue to have electrolyte challenges 1. Decrease stool softener dose. 2. PICC and TPN in place and will correct both nutritional deficiency and electrolytes over time 3. Can start soft foods as there is no evidence of leak on CT. 4. Getting stiff so will consult PT for mobilization. 5. Tentatively plan home toward the end of the week if he continues to improve 6. Will need at least 10 days of antibiotics in total
[2021-07-10] MEDS ORDERED: MAGNESIUM SULFATE 2 GRAM 2 GM/50 ML BAG IV ONE (11:00)
[2021-07-10] MEDS ORDERED: SODIUM PHOSPHATE 20 MMOL in SODIUM CHLORIDE 0.9% 250 ML IV ONE (12:00)
--- NOTE | 2021-07-10 13:43 | PROVIDER PROGRESS NOTE ---
Subjective - General Admit Date: 07/05/21 Procedure Performed: HD #3 - Review of Systems General: positive: No symptoms Gastrointestinal: positive: Nausea, Vomiting (Most of the afternoon yesterday) - Other Other Information/Narrative: Abel Roman reports he is feeling much much better today. His iuoceyqf-do-whx is with him and reports that he is back to his baseline. He denies any ab dominal pain. He has eaten soup and part of a sandwich and some fruit today and it all settled quite well with him. He is not having diarrhea and he generally is feeling much better. Objective - Patient Data Vital Signs: Vital Signs x48h Temp Pulse Resp BP BP Pulse Ox 07/10/21 12:02 36.9 C 73 20 133/69 H 95 07/10/21 08:22 133/60 H 07/10/21 08:18 36.6 C 72 20 134/56 H 96 Weight: Weight 07/08/21 07/09/21 07/10/21 23:59 23:59 23:59 Weight (kg) 98.5 kg Intake & Output: Intake and Output Totals x24h 07/08/21 07/09/21 07/10/21 23:59 23:59 23:59 Intake Total 9316.668 6361.250 1064.75 Balance 7038.953 4460.250 1064.75 - Lab Results Lab Results: 07/10/21 05:30 07/10/21 05:30 Other Lab Results: Lab Results x24hrs 07/10/21 07/10/21 07/10/21 Range/Units 07:54 05:30 05:30 WBC (4.8-10.8) x10^3/uL RBC (4.70-6.10) 10^6/uL Hgb (14.0-18.0) g/dL Hct (42.0-52.0) % MCV (80.0-94.0) fL MCH (27.0-31.0) pg MCHC (32.0-36.0) g/dL RDW (12.0-15.0) % Plt Count (130-450) 10^3/uL MPV (7.4-11.4) fL Neut # (Auto) (1.5-6.6) 10^3/uL Lymph # (Auto) (1.5-3.5) 10^3/uL [place] # (Auto) (0.0-1.0) 10^3/uL Eos # (Auto) (0.0-0.7) 10^3/uL Baso # (Auto) (0.0-0.1) 10^3/uL Absolute Nucleated RBC x10^3/uL Nucleated RBC % /100WBC PT 14.5 H (9.9-12.6) secs INR 1.3 H (0.8-1.2) Sodium 136 (135-145) mmol/L Potassium 2.9 L (3.5-5.0) mmol/L Chloride 107 (101-111) mmol/L Carbon Dioxide 22 (21-32) mmol/L Anion Gap 7.0 (6-13) BUN 9 (6-20) mg/dL Creatinine 0.9 (0.6-1.2) mg/dL Estimated GFR (MDRD) 81 L (>89) Glucose 200 H (70-100) mg/dL POC Whole Bld Glucose 220 H (70 - 100) mg/dL Calcium 7.4 L (8.5-10.3) mg/dL Phosphorus 1.5 L (2.5-4.6) mg/dL Magnesium 1.6 L (1.7-2.8) mg/dL Total Bilirubin 0.8 (0.2-1.0) mg/dL AST 23 (10-42) IU/L ALT 24 (10-60) IU/L Alkaline Phosphatase 50 (42-121) IU/L Total Protein 5.2 L (6.7-8.2) g/dL Albumin 2.5 L (3.2-5.5) g/dL Globulin 2.7 (2.1-4.2) g/dL Albumin/Globulin Ratio 0.9 L (1.0-2.2) Prealbumin 7 L (18-45) mg/dL Triglycerides 150 H ( - 149) mg/dL 07/10/21 07/09/21 07/09/21 Range/Units 05:30 21:06 16:45 WBC 8.0 (4.8-10.8) x10^3/uL RBC 3.19 L (4.70-6.10) 10^6/uL Hgb 10.4 L (14.0-18.0) g/dL Hct 30.6 L (42.0-52.0) % MCV 95.9 H (80.0-94.0) fL MCH 32.6 H (27.0-31.0) pg MCHC 34.0 (32.0-36.0) g/dL RDW 12.5 (12.0-15.0) % Plt Count 145 (130-450) 10^3/uL MPV 9.7 (7.4-11.4) fL Neut # (Auto) 6.1 (1.5-6.6) 10^3/uL Lymph # (Auto) 1.1 L (1.5-3.5) 10^3/uL [place] # (Auto) 0.6 (0.0-1.0) 10^3/uL Eos # (Auto) 0.1 (0.0-0.7) 10^3/uL Baso # (Auto) 0.0 (0.0-0.1) 10^3/uL Absolute Nucleated RBC 0.00 x10^3/uL Nucleated RBC % 0.0 /100WBC PT (9.9-12.6) secs INR (0.8-1.2) Sodium (135-145) mmol/L Potassium (3.5-5.0) mmol/L Chloride (101-111) mmol/L Carbon Dioxide (21-32) mmol/L Anion Gap (6-13) BUN (6-20) mg/dL Creatinine (0.6-1.2) mg/dL Estimated GFR (MDRD) (>89) Glucose (70-100) mg/dL POC Whole Bld Glucose 185 H 125 H (70 - 100) mg/dL Calcium (8.5-10.3) mg/dL Phosphorus (2.5-4.6) mg/dL Magnesium (1.7-2.8) mg/dL Total Bilirubin (0.2-1.0) mg/dL AST (10-42) IU/L ALT (10-60) IU/L Alkaline Phosphatase (42-121) IU/L Total Protein (6.7-8.2) g/dL Albumin (3.2-5.5) g/dL Globulin (2.1-4.2) g/dL Albumin/Globulin Ratio (1.0-2.2) Prealbumin (18-45) mg/dL Triglycerides ( - 149) mg/dL - Current Medications Current Medications: Current Medications Generic Name Dose Route Start Last Admin Trade Name Freq PRN Reason Stop Dose Admin Atorvastatin Calcium 10 mg 07/06/21 21:00 07/09/21 21:35 Atorvastatin 10 Mg Tablet PO 10 mg QPM FELY Administration Enoxaparin Sodium 100 mg 07/06/21 21:00 07/10/21 08:21 Enoxaparin 100 Mg/Ml Syringe SUBQ 100 mg BID FELY Administration Multivitamins 10 ml/ TRACE 2,051 mls @ 40 mls/hr 07/09/21 19:00 07/09/21 2 2:26 ELEMENTS 1 ml/ Potassium IV 40 mls/hr Chloride 80 meq/ Amino Ac/ TPN/PPN FELY Infusion Electrol/Dextrose/Calcium Piperacillin Sod/Tazobactam 100 mls @ 25 mls/hr 07/09/21 20:00 07/10/21 12:09 Sod 3.375 gm/ Sodium Chloride IV 25 mls/hr Q8H FELY Administration Sodium Phosphate 20 mmol/ 256.6667 mls @ 41 mls/hr 07/10/21 12:00 07/10/21 12:52 Sodium Chloride IV 07/10/21 18:15 41 mls/hr ONCE ONE Administration Insulin Aspart 1 - 9 unit 07/06/21 17:00 07/10/21 12:02 Insulin Aspart 300 Unit/3 Ml Pen SUBQ 3 unit 0800,1200,1700,2100 FELY Administration Protocol Metoclopramide HCl 5 mg 07/07/21 09:00 07/10/21 05:23 Metoclopramide 10 Mg/2 Ml Vial IVP 5 mg Q8HR FELY Administration Metoprolol Tartrate 50 mg 07/08/21 00:35 07/10/21 08:22 Metoprolol Tartrate 50 Mg Tablet PO 50 mg BID FELY Administration Multi-Ingredient Ointment 1 applic 07/07/21 04:54 07/09/21 12:47 Zinc Oxide 20% Oint 30 Gm Tube TOP 1 applic PRN PRN Administration Skin Care Ondansetron HCl 4 mg 07/05/21 17:27 07/06/21 15:35 Ondansetron 4 Mg/2 Ml Vial IVP 4 mg Q6HR PRN Administration Nausea / Vomiting Potassium Chloride 20 meq 07/06/21 18:00 07/10/21 08:22 Potassium Chloride 20 Meq Tablet PO 20 meq DAILYWM FELY Administration Sodium Chloride 10 ml 07/05/21 17:22 07/10/21 03:43 Sodium Chloride Flush 0.9% 10 Ml Syringe IVP 10 ml PRN PRN Administration NEEDED PER PROVIDER ORDERS Sodium Chloride 10 ml 07/06/21 01:00 07/10/21 09:41 Sodium Chloride Flush 0.9% 10 Ml Syringe IVP 10 ml 0100,0900,1700 FELY Administration - Physical Exam Abdomen: positive: Nml bowel sounds, No distention. negative: Tenderness ABX Reporting Has patient been on IV antibiotics over the past 48 hours?: Yes Impression/Plan - Problem List Problem List: Our plan at this point is to change him to oral antibiotic today. He is eating now so he should be able to tolerate that without much difficulty. If he is able to tolerate the oral antibiotic, we will plan to discharge him home tomorrow with another 5 days of antibiotic making a total of 10. He will need an appointment to follow-up with me in the office in 10 days for reevaluation and to schedule repeat CT scan. If he has difficulty tolerating oral a ntibiotics, we will have to reconsider all of the above.
[2021-07-10] MEDS: metroNIDAZOLE 250 MG TABLET PO SCH ×2 (14:11→21:08)
[2021-07-10] MEDS ORDERED: ACETAMINOPHEN 500 MG TABLET PO PRN (15:59)
[2021-07-10] MEDS: SACCHAROMYCES BOULARDII 250 MG CAPSULE PO SCH (17:24)
[2021-07-10] MEDS: ATORVASTATIN 10 MG TABLET PO SCH (20:57)
[2021-07-10] MEDS: AMOX/CLAV 875 MG/125 MG TABLET PO SCH (20:57)
[2021-07-10] MEDS ORDERED: MIN OIL/DIMETHICON/COCONUT OIL 92 GM TUBE TOP SCH (21:00)
[2021-07-11] MEDS: SODIUM CHLORIDE FLUSH 0.9% 10 ML SYRINGE IVP SCH (01:41)
[2021-07-11] MEDS: SODIUM CHLORIDE FLUSH 0.9% 10 ML SYRINGE IVP PRN (01:41)
[2021-07-11 05:16] LABS: BASOPHILS % (AUTO) 0.3 %; EOSINOPHILS # (AUTO) 0.2 10^3/uL (0.0-0.7); EOSINOPHILS % (AUTO) 2.6 %; HCT - HEMATOCRIT 29.2 % (42.0-52.0); HGB - HEMOGLOBIN 10.2 g/dL (14.0-18.0); LYMPHOCYTES # (AUTO) 1.2 10^3/uL (1.5-3.5); LYMPHOCYTES % (AUTO) 17.7 %; MEAN CORPUSCULAR HEMOGLOBIN 33.9 pg (27.0-31.0); MEAN CORPUSCULAR HGB CONC 34.9 g/dL (32.0-36.0); MEAN PLATELET VOLUME 10.1 fL (7.4-11.4); MONOCYTES # (AUTO) 0.5 10^3/uL (0.0-1.0); MONOCYTES % (AUTO) 7.9 %; NEUTROPHILS # (AUTO) 4.5 10^3/uL (1.5-6.6); NEUTROPHILS % (AUTO) 67.1 %; PLT - PLATELET COUNT 161 10^3/uL (130-450); RED BLOOD COUNT 3.01 10^6/uL (4.70-6.10); RED CELL DISTRIBUTION WIDTH 12.9 % (12.0-15.0); WHITE BLOOD COUNT 6.6 x10^3/uL (4.8-10.8)
[2021-07-11] MEDS: METOCLOPRAMIDE 10 MG/2 ML VIAL IVP SCH (06:28)
[2021-07-11] MEDS: metroNIDAZOLE 250 MG TABLET PO SCH (06:29)
[2021-07-11] MEDS ORDERED: POTASSIUM CHLORIDE 20 MEQ TABLET PO SCH (08:00)
--- NOTE | 2021-07-11 08:13 | Discharge Plan ---
Discharge Plan Problem Reviewed?: Yes Disposition: Home, Self Care Condition: Stable Prescriptions: Amox/Clav 875/125 [Augmentin 875/125 Tab] 1 tab PO BID #12 tablet metroNIDAZOLE [Flagyl] 500 mg PO Q8H #18 tablet Saccharomyces Boulardii [Florastor] 250 mg PO BIDWM #30 cap Diet: Diabetic Activity Restrictions: Activity as Tolerated Shower Restrictions: No Driving Restrictions: Yes (As before) No Smoking: If you smoke, Please STOP! Call for help. Follow-up with: Vinayak Conde MD [Primary Care Provider] - Jennifer Burnham MD [Provider Admit Priv/Credential] -
[2021-07-11] MEDS: INSULIN ASPART 300 UNIT/3 ML PEN SUBQ SCH (08:15)
--- NOTE | 2021-07-11 08:15 | DISCHARGE SUMMARY ---
Discharge Summary Admit Date: 07/05/21 Discharge Date: 07/11/21 Discharging Provider: Chacha Primary Care Provider: Amaya Code Status: Attempt Resuscitation Condition at Discharge: Stable Discharge Disposition: 01 Home, Self Care - DIAGNOSES Admission Diagnoses: Perforated viscus with intra-abdominal abscess Discharge Diagnoses with Status of Each Condition: Improved - HPI History of Present Illness: Delightful 81-year-old gentleman who is the zeacog-fo-fwd of one of our former Associates. He reports that he was in his usual state of health yesterday afternoon when he went outside and was suddenly caught off guard by a pain in his abdomen. He says it was not very strong but it felt abnormal. He decided to go back inside and sit down and see if it would go away. When it did not go away and seem to get stronger, he called his whwpopou-eg-haa and she transported him here to the emergency room. He denies any similar pains as this in the past. He denies any sweating. He has not had any nausea or vomiting other than a short bout of nausea in the emergency room. He denies any blood in his stool. He does not think he has had any change in his bowel habits. He denies any new con stipation or diarrhea. He has been eating normally.His past medical history is significant for left renal cell carcinoma and a left nephrectomy. He also has hypertension, dyslipidemia, and type 2 diabetes.He tells me that he likes to drink a little whiskey and would love it if we would let him do that while he is in the hospital.He is a [place] man and tells me he is from [facility]. He is alert and oriented x3 and can tell me all about his family members living in that general area. He also has good recall of the events of his illness as well as what is going on around him currently.Since admission, he says his pain is essentially resolved. He denies any pain currently.He did not eat any of his breakfast as he says he is not a fan of hospital food.His wwtclglf-ke-ajr, Zuleima, tells me that they have been concerned a bit about his memory in the last week or so. She says he had a walked into the family room and ask questions regarding the "remodel". They are not remodeling their home.This is been somewhat concerning for her and she feels like it is gotten more significant over the week. - CONSULTS | PROCEDURES Consultations: Hospitalist - Dr. Hernandez Procedures: None - HOSPITAL COURSE Hospital Course: The patient was admitted and started on IV antibiotics. His pain was improved on the first hospital day. He became progressively delerious over the ensuing 48 hours and was treated with conservative use of benzodiazepines. Electrolytes were corrected and he was able to toerated a clear liquid diet. One hospital Day #4, the delerium began to clear and he was able to walk with PT. Today he is tolerating a regular diet and has been able to tolerat po antibiotics. We have a repeat CT from the 3rd hospital day showing an essentially unchanged appearance of the abcess and associated duodenal diverticulum, the presumed site of rupture. This area is not amenable to image guided drainage so we will continue with conservative management. Mr. Ortega is discharged to his home in the care of his family. He will follow up with me in 10 days to evaluate progress and order imaging for surveillance. - ALLERGIES Allergies/Adverse Reactions: Allergies Allergy/AdvReac Type Severity Reaction Status Date / Time ciprofloxacin [From Cipro] Allergy Mild Hives Verified 07/05/21 13:49 ciprofloxacin HCl * Allergy Mild Hives Verified 07/05/21 13:49 [From Cipro] - MEDICATIONS Home Medications: Ambulatory Orders Medication Instructions Recorded Confirmed Metformin HCl [Metformin HCl ER] 750 mg PO BID 04/19/13 07/05/21 Cyanocobalamin [Vitamin B-12] 500 mcg PO DAILY 05/09/14 07/05/21 Pnv No.95/Ferrous Fum/Folic AC 1 tab PO DAILY 05/09/14 07/05/21 [ Tablet] Ascorbic Acid [Vitamin C] 500 mg PO BID 03/11/16 07/05/21 Metoprolol Tartrate [Lopressor] 50 mg PO BID 03/11/16 07/05/21 hydroCHLOROthiazide 25 mg PO DAILY 03/11/16 07/05/21 [Hydrochlorothiazide] Ferrous Gluconate [Iron] 240 mg PO DAILY PM 12/09/18 07/05/21 Rosuvastatin Calcium [Crestor] 5 mg PO DAILY 12/09/18 07/05/21 Rivaroxaban [Xarelto] 20 mg PO DAILY 07/05/21 07/05/21 Amox/Clav 875/125 [Augmentin 1 tab PO BID #12 tablet 07/11/21 875/125 Tab] Saccharomyces Boulardii [Florastor] 250 mg PO BIDWM #30 cap 07/11/21 metroNIDAZOLE [Flagyl] 500 mg PO Q8H #18 tablet 07/11/21 - PHYSICAL EXAM AT DISCHARGE General Appearance: positive: No acute distress Eyes Bilateral: positive: Normal inspection, PERRL, EOMI ENT: positive: ENT inspection nml Neck: positive: Nml inspection Respiratory: positive: Chest non-tender, No respiratory distress, Breath sounds nml Cardiovascular: positive: Regular rate & rhythm Peripheral Pulses: positive: 0 Abdomen: positive: Non-tender, Nml bowel sounds, No distention Back: positive: Nml inspection Skin: positive: Color nml Extremities: positive: Non-tender Neurologic/Psychiatric: positive: Oriented x3 - LABS Result Diagrams: 07/11/21 04:35 07/10/21 05:30 - DIAGNOSTIC IMAGING Diagnostic Imaging Results: Read contemporaneously - SEPSIS Current Stage of Sepsis: Resolved Possible source of Sepsis: GI tract/intra-abdominal - QUALITY (Female Hip Fx Only) Was patient sent home on osteoporosis medication?: No - FOLLOW UP Follow Up: [facility] - Dr. Burnham - TIME SPENT Time Spent in Discharge (Minutes): 25
[2021-07-11] MEDS: AMOX/CLAV 875 MG/125 MG TABLET PO SCH (08:19)
[2021-07-11] MEDS: METOPROLOL TARTRATE 50 MG TABLET PO SCH (08:19)
[2021-07-11] MEDS: SACCHAROMYCES BOULARDII 250 MG CAPSULE PO SCH (08:19)
[2021-07-11 08:33] VITALS: BP 124/59
[2021-07-11] MEDS: ENOXAPARIN 100 MG/ML SYRINGE SUBQ SCH (08:33)
[2021-07-14] MEDS ORDERED: FAT EMULSION 20% 250 ML IV SCH (19:00)
== END 2021-07-11 11:40 | disposition home or self-care (01) | DRG 391 ==
LOC: ED 13:38 → MS2 17:22
PROVIDERS: ADMIT Surgery; ATTEND Surgery
PROC: 02HV33Z Insertion of Infusion Device into Superior Vena Cava, Percutaneous Approach (ICD-10-PCS; principal; 2021-07-09)
PROC: 3E0436Z Introduction of Nutritional Substance into Central Vein, Percutaneous Approach (ICD-10-PCS; 2021-07-09)
DX: K63.1 Perforation of intestine (nontraumatic) (principal); K65.1 Peritoneal abscess; K57.20 Diverticulitis of large intestine with perforation and abscess without bleeding; G93.41 Metabolic encephalopathy; K57.30 Diverticulosis of large intestine without perforation or abscess without bleeding; I48.92 Unspecified atrial flutter; E11.9 Type 2 diabetes mellitus without complications; Z20.822 Contact with and (suspected) exposure to COVID-19; F10.10 Alcohol abuse, uncomplicated; E87.6 Hypokalemia; E83.42 Hypomagnesemia; E83.39 Other disorders of phosphorus metabolism; I10 Essential (primary) hypertension; E78.5 Hyperlipidemia, unspecified; I70.201 Unspecified atherosclerosis of native arteries of extremities, right leg; K21.9 Gastro-esophageal reflux disease without esophagitis; K44.9 Diaphragmatic hernia without obstruction or gangrene; D32.0 Benign neoplasm of cerebral meninges; G93.89 Other specified disorders of brain; M19.90 Unspecified osteoarthritis, unspecified site; H40.10X0 Unspecified open-angle glaucoma, stage unspecified; M10.9 Gout, unspecified; R26.0 Ataxic gait; H91.90 Unspecified hearing loss, unspecified ear; R35.0 Frequency of micturition; R35.1 Nocturia; R39.15 Urgency of urination; Z79.84 Long term (current) use of oral hypoglycemic drugs; Z79.01 Long term (current) use of anticoagulants; Z79.899 Other long term (current) drug therapy; Z91.81 History of falling; Z85.46 Personal history of malignant neoplasm of prostate; Z90.5 Acquired absence of kidney; Z92.3 Personal history of irradiation; Z86.14 Personal history of Methicillin resistant Staphylococcus aureus infection; Z87.891 Personal history of nicotine dependence; Z86.711 Personal history of pulmonary embolism; Z86.718 Personal history of other venous thrombosis and embolism; Z85.528 Personal history of other malignant neoplasm of kidney; Z87.11 Personal history of peptic ulcer disease; Z87.19 Personal history of other diseases of the digestive system; Z86.69 Personal history of other diseases of the nervous system and sense organs
CPT/HCPCS: 36415; 70450; 71045; 74177; 80048; 80053; 81003; 82330; 83036; 83690; 83735; 84100; 84134; 84478; 85025; 85610; 87493; 87631; 96365; 96375; 97161; 99284; 99285; A6250; A9270; C1751; J1650; J2765; J3490; J7120; Q9967; 0202U; 81001; 87086

== ENCOUNTER 2021-07-14 20:27 | Emergency (ER) | payer MEDICARE, OTHER ==
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
[2021-07-14] MEDS ORDERED: HYDROmorphone 1 MG/ML CARPUJECT IVP STA ×2 (20:56→22:35)
[2021-07-14] MEDS ORDERED: ONDANSETRON 4 MG/2 ML VIAL IVP STA (20:56)
[2021-07-14] MEDS ORDERED: SODIUM CHLORIDE 0.9% 1,000 ML IV STA (20:58)
[2021-07-14] MEDS ORDERED: IOPAMIDOL-300 50 ML VIAL ONE (21:06)
[2021-07-14 21:14] LABS: BASOPHILS % (AUTO) 0.3 %; EOSINOPHILS # (AUTO) 0.1 10^3/uL (0.0-0.7); EOSINOPHILS % (AUTO) 0.7 %; HGB - HEMOGLOBIN 12.3 g/dL (14.0-18.0); LYMPHOCYTES # (AUTO) 1.6 10^3/uL (1.5-3.5); LYMPHOCYTES % (AUTO) 12.5 %; MEAN CORPUSCULAR HEMOGLOBIN 33.1 pg (27.0-31.0); MEAN CORPUSCULAR HGB CONC 33.2 g/dL (32.0-36.0); MEAN CORPUSCULAR VOLUME 99.5 fL (80.0-94.0); MEAN PLATELET VOLUME 8.9 fL (7.4-11.4); MONOCYTES # (AUTO) 0.6 10^3/uL (0.0-1.0); MONOCYTES % (AUTO) 4.8 %; NEUTROPHILS # (AUTO) 9.9 10^3/uL (1.5-6.6); NEUTROPHILS % (AUTO) 78.9 %; PLT - PLATELET COUNT 291 10^3/uL (130-450); RED BLOOD COUNT 3.72 10^6/uL (4.70-6.10); RED CELL DISTRIBUTION WIDTH 13.2 % (12.0-15.0); WHITE BLOOD COUNT 12.5 x10^3/uL (4.8-10.8)
[2021-07-14 21:18] LABS: INR 1.6 (0.8-1.2); PT - PROTHROMBIN TIME 17.9 secs (9.9-12.6)
[2021-07-14 21:24] LABS: ALBUMIN/GLOBULIN RATIO 0.9 (1.0-2.2); BILIRUBIN,TOTAL 0.8 mg/dL (0.2-1.0); CALCIUM 8.3 mg/dL (8.5-10.3); CREATININE 1.1 mg/dL (0.6-1.2); MAGNESIUM 1.6 mg/dL (1.7-2.8); POTASSIUM 3.5 mmol/L (3.5-5.0); TOTAL PROTEIN 6.2 g/dL (6.7-8.2)
[2021-07-14 21:29] LABS: PARTIAL THROMBOPLASTIN TIME 36.9 secs (24.9-33.3)
[2021-07-14] MEDS ORDERED: IOPAMIDOL-300 50 ML VIAL IVP ONE (22:02)
[2021-07-14 22:36] LABS: BILIRUBIN,URINE NEGATIVE (NEGATIVE); GLUCOSE, URINE (UA) NEGATIVE (NEGATIVE); KETONES,URINE (UA) TRACE mg/dL (NEGATIVE); LEUKOCYTE ESTERASE, URINE NEGATIVE (NEGATIVE); NITRITE,URINE NEGATIVE (NEGATIVE); OCCULT BLOOD,URINE NEGATIVE (NEGATIVE); PROTEIN,URINE NEGATIVE (NEGATIVE); UROBILINOGEN,URINE 0.2 (NORMAL) E.U./dL (NORMAL)
[2021-07-14 22:42] LABS: CLARITY,URINE CLEAR (CLEAR)
[2021-07-15] MEDS ORDERED: ONDANSETRON ODT 4 MG Prepack 2 TL PRN (00:07)
[2021-07-15] MEDS ORDERED: oxyCODONE/ACET 5/325 Prepack 4 PO STA (00:07)
[2021-07-15 00:21] VITALS: BP 139/76
--- NOTE | 2021-07-15 08:43 | CT Report ---
PROCEDURE: Abdomen/Pelvis W INDICATIONS: mid abd pain, recent admission duodenal rupture CONTRAST: IV CONTRAST: Isovue 300 ml: 80 PO CONTRAST: *NO PO CONTRAST TECHNIQUE: After the administration of contrast, 5 mm thick sections acquired from the diaphragms to the sym physis. 5 mm thick coronal and sagittal reformats were acquired. For radiation dose reduction, the following was used: automated exposure control, adjustment of mA and/or kV according to patient size . COMPARISON: None. FINDINGS: Image quality: Excellent. ABDOMEN: Lung bases: Trace pleural effusions with lower lobe atelectasis. Heart size is normal. Solid organs: Liver and spleen are normal in size and enhancement. A 1.2 cm hypodensity in the right lobe of the liver is likely a cyst and is unchanged. Gallbladder contains multiple gallstones withou t gallbladder distention or wall thickening. Biliary system is non dilated. Pancreas enhances daniela lly. No adrenal nodules. Kidneys demonstrate normal size and enhancement, without hydronephrosis. A small hiatal hernia is noted. Small hepatic cyst, no other focal abnormality. Spleen, pancreas, and adrenal glands are unremarkable. Right renal cyst without stones or hydronephrosis. Prior left nephr ectomy. Peritoneum and bowel: Bowel loops demonstrate normal wall thickness and caliber. No free fluid or a ir. Duodenal diverticulum noted proximally. Small air and fluid collection noted adjacent to the dis alexandra duodenum. This has decreased in size compared to the prior study now measuring 2.7 cm, measuring 5.4 cm on the prior study. Mild adjacent short segment small bowel dilatation. Finding likely represe nts reactive ileus secondary to inflammation. Nodes and vessels: No retroperitoneal or mesenteric adenopathy by size criteria. Aorta and inferior vena cava are normal in size. Miscellaneous: No ventral hernias. PELVIS: Genitourinary: Bladder wall thickness is normal. Miscellaneous: No inguinal hernias or adenopathy. Bones: No suspicious bony lesions. No vertebral body compression fractures. IMPRESSION: 1. Decreasing size of periduodenal abscess since prior study. 2. Probable mild ileus of the duodenum and proximal jejunum. 3. Trace pleural effusions and bilateral lower lobe atelectasis. Reviewed by: Malick Owens on 07/15/2021 8:42 AM PDT Approved by: Malick Owens on 07/15/2021 8:42 AM PDT Station ID: [id number]
== END 2021-07-15 00:21 | disposition home or self-care (01) ==
LOC: ED 20:27
DX: K57.00 Diverticulitis of small intestine with perforation and abscess without bleeding (principal); I10 Essential (primary) hypertension; E11.9 Type 2 diabetes mellitus without complications; Z79.84 Long term (current) use of oral hypoglycemic drugs
CPT/HCPCS: 36415; 74177; 80053; 81003; 83605; 83690; 83735; 85025; 85610; 85730; 96361; 96374; 96375; 96376; 99284; J1170; Q9967; 81001; 87086

== ENCOUNTER 2021-08-07 10:30 | Outpatient (CLI) | payer MEDICARE, OTHER ==
[2021-08-07 17:50] LABS: BASOPHILS % (AUTO) 0.5 %; EOSINOPHILS # (AUTO) 0.1 10^3/uL (0.0-0.7); EOSINOPHILS % (AUTO) 0.8 %; HCT - HEMATOCRIT 37.3 % (42.0-52.0); HGB - HEMOGLOBIN 11.3 g/dL (14.0-18.0); LYMPHOCYTES # (AUTO) 1.7 10^3/uL (1.5-3.5); LYMPHOCYTES % (AUTO) 22.1 %; MEAN CORPUSCULAR HEMOGLOBIN 31.7 pg (27.0-31.0); MEAN CORPUSCULAR HGB CONC 30.3 g/dL (32.0-36.0); MEAN CORPUSCULAR VOLUME 104.5 fL (80.0-94.0); MEAN PLATELET VOLUME 9.7 fL (7.4-11.4); MONOCYTES # (AUTO) 0.5 10^3/uL (0.0-1.0); NEUTROPHILS # (AUTO) 5.4 10^3/uL (1.5-6.6); NEUTROPHILS % (AUTO) 69.1 %; PLT - PLATELET COUNT 336 10^3/uL (130-450); RED BLOOD COUNT 3.57 10^6/uL (4.70-6.10); RED CELL DISTRIBUTION WIDTH 13.9 % (12.0-15.0); WHITE BLOOD COUNT 7.8 x10^3/uL (4.8-10.8)
[2021-08-07 18:13] LABS: ALBUMIN 3.3 g/dL (3.2-5.5); ALBUMIN/GLOBULIN RATIO 0.8 (1.0-2.2); BILIRUBIN,TOTAL 0.7 mg/dL (0.2-1.0); MAGNESIUM 1.9 mg/dL (1.7-2.8); PHOSPHORUS 4.5 mg/dL (2.5-4.6); POTASSIUM 4.5 mmol/L (3.5-5.0); TOTAL PROTEIN 7.3 g/dL (6.7-8.2)
[2021-08-07 18:23] LABS: THYROID STIMULATING HORMONE 1.61 uIU/mL (0.34-5.60)
[2021-08-07 20:04] LABS: ESTIMATED AVERAGE GLUCOSE 160 mg/dL (70-100); HEMOGLOBIN A1c% 7.2 % (4.27-6.07)
== END 2021-08-07 23:59 | disposition home or self-care (01) ==
LOC: LAB.WCP 10:30
PROVIDERS: ATTEND Family Medicine
DX: K57.12 Diverticulitis of small intestine without perforation or abscess without bleeding (principal); I10 Essential (primary) hypertension; E11.9 Type 2 diabetes mellitus without complications; Z90.5 Acquired absence of kidney; Z79.01 Long term (current) use of anticoagulants; I73.9 Peripheral vascular disease, unspecified; I48.91 Unspecified atrial fibrillation; D64.9 Anemia, unspecified; E66.9 Obesity, unspecified
CPT/HCPCS: 36415; 80053; 83036; 83735; 84100; 84443; 85025

== ENCOUNTER 2021-12-02 09:40 | Outpatient (CLI) | payer MEDICARE, OTHER ==
[2021-12-02 12:33] LABS: ESTIMATED AVERAGE GLUCOSE 151 mg/dL (70-100); HEMOGLOBIN A1c% 6.9 % (4.27-6.07)
[2021-12-02 12:34] LABS: BASOPHILS % (AUTO) 0.7 %; EOSINOPHILS # (AUTO) 0.1 10^3/uL (0.0-0.7); EOSINOPHILS % (AUTO) 1.5 %; HGB - HEMOGLOBIN 12.6 g/dL (14.0-18.0); LYMPHOCYTES % (AUTO) 32.6 %; MEAN CORPUSCULAR HEMOGLOBIN 32.4 pg (27.0-31.0); MEAN CORPUSCULAR HGB CONC 33.2 g/dL (32.0-36.0); MEAN CORPUSCULAR VOLUME 97.7 fL (80.0-94.0); MEAN PLATELET VOLUME 10.2 fL (7.4-11.4); MONOCYTES # (AUTO) 0.5 10^3/uL (0.0-1.0); MONOCYTES % (AUTO) 8.5 %; NEUTROPHILS # (AUTO) 3.4 10^3/uL (1.5-6.6); PLT - PLATELET COUNT 185 10^3/uL (130-450); RED BLOOD COUNT 3.89 10^6/uL (4.70-6.10); RED CELL DISTRIBUTION WIDTH 12.3 % (12.0-15.0)
[2021-12-02 12:51] LABS: THYROID STIMULATING HORMONE 4.69 uIU/mL (0.34-5.60)
[2021-12-02 13:02] LABS: ALBUMIN 3.6 g/dL (3.2-5.5); ALBUMIN/GLOBULIN RATIO 1.1 (1.0-2.2); ALKALINE PHOSPHATASE 74 IU/L (42-121); ALT ALANINE AMINOTRANSFERASE 19 IU/L (10-60); AST ASPARTATE AMINOTRANSFERASE 22 IU/L (10-42); BILIRUBIN,TOTAL 0.4 mg/dL (0.2-1.0); BUN - BLOOD UREA NITROGEN 19 mg/dL (6-20); CALCIUM 8.9 mg/dL (8.5-10.3); CARBON DIOXIDE - CO2 27 mmol/L (21-32); CHLORIDE 104 mmol/L (101-111); CHOL/HDL RATIO 2.7 (<5.0); CHOLESTEROL 122 mg/dL; CREATININE 1.1 mg/dL (0.6-1.2); GFR - MDRD 64 (>89); GLUCOSE 161 mg/dL (70-100); HDL CHOLESTEROL 46 mg/dL; LDL CHOLESTEROL,CALCULATED 51 mg/dL; LDL/HDL RATIO 1.1 (<3.6); POTASSIUM 4.1 mmol/L (3.5-5.0); SODIUM 139 mmol/L (135-145); TOTAL PROTEIN 6.9 g/dL (6.7-8.2); TRIGLYCERIDES 124 mg/dL; VLDL CHOLESTEROL 25 mg/dL
== END 2021-12-02 23:59 | disposition home or self-care (01) ==
LOC: LAB.WCP 09:40
PROVIDERS: ATTEND Family Medicine
DX: K56.0 Paralytic ileus (principal); K57.12 Diverticulitis of small intestine without perforation or abscess without bleeding; I48.91 Unspecified atrial fibrillation; I73.9 Peripheral vascular disease, unspecified; E66.9 Obesity, unspecified; F60.5 Obsessive-compulsive personality disorder; I10 Essential (primary) hypertension; E11.9 Type 2 diabetes mellitus without complications; Z90.5 Acquired absence of kidney
CPT/HCPCS: 36415; 80053; 80061; 83036; 83721; 84443; 85025

== ENCOUNTER 2022-06-11 09:22 | Outpatient (CLI) | payer MEDICARE, OTHER ==
[2022-06-11 12:14] LABS: BASOPHILS % (AUTO) 0.4 %; EOSINOPHILS # (AUTO) 0.1 10^3/uL (0.0-0.7); EOSINOPHILS % (AUTO) 1.5 %; HCT - HEMATOCRIT 36.3 % (42.0-52.0); LYMPHOCYTES # (AUTO) 1.9 10^3/uL (1.5-3.5); LYMPHOCYTES % (AUTO) 27.6 %; MEAN CORPUSCULAR HEMOGLOBIN 32.3 pg (27.0-31.0); MEAN CORPUSCULAR HGB CONC 33.1 g/dL (32.0-36.0); MEAN CORPUSCULAR VOLUME 97.6 fL (80.0-94.0); MEAN PLATELET VOLUME 10.3 fL (7.4-11.4); MONOCYTES # (AUTO) 0.5 10^3/uL (0.0-1.0); MONOCYTES % (AUTO) 6.8 %; NEUTROPHILS # (AUTO) 4.3 10^3/uL (1.5-6.6); PLT - PLATELET COUNT 188 10^3/uL (130-450); RED BLOOD COUNT 3.72 10^6/uL (4.70-6.10); RED CELL DISTRIBUTION WIDTH 12.8 % (12.0-15.0); WHITE BLOOD COUNT 6.8 x10^3/uL (4.8-10.8)
[2022-06-11 12:44] LABS: ALBUMIN/GLOBULIN RATIO 1.4 (1.0-2.2); ALKALINE PHOSPHATASE 51 IU/L (42-121); ALT ALANINE AMINOTRANSFERASE 15 IU/L (10-60); AST ASPARTATE AMINOTRANSFERASE 17 IU/L (10-42); BILIRUBIN,TOTAL 0.8 mg/dL (0.2-1.0); BUN - BLOOD UREA NITROGEN 20 mg/dL (6-20); CALCIUM 8.9 mg/dL (8.5-10.3); CARBON DIOXIDE - CO2 27 mmol/L (21-32); CHLORIDE 103 mmol/L (101-111); CHOL/HDL RATIO 2.8 (<5.0); CHOLESTEROL 112 mg/dL; CREATININE 1.1 mg/dL (0.6-1.2); GFR - MDRD 64 (>89); GLUCOSE 162 mg/dL (70-100); HDL CHOLESTEROL 40 mg/dL; LDL CHOLESTEROL,CALCULATED 35 mg/dL; LDL/HDL RATIO 0.9 (<3.6); SODIUM 141 mmol/L (135-145); TOTAL PROTEIN 6.9 g/dL (6.7-8.2); TRIGLYCERIDES 184 mg/dL; VLDL CHOLESTEROL 37 mg/dL
[2022-06-11 12:48] LABS: THYROID STIMULATING HORMONE 3.33 uIU/mL (0.34-5.60)
[2022-06-11 12:52] LABS: ESTIMATED AVERAGE GLUCOSE 151 mg/dL (70-100); HEMOGLOBIN A1c% 6.9 % (4.27-6.07)
[2022-06-11 13:01] LABS: MICROALBUM/CREATININE RATIO,UR 73.2 ug/mg (<30.0); MICROALBUMIN,URINE 10.4 mg/dL (0-300.0)
== END 2022-06-11 09:23 | disposition home or self-care (01) ==
LOC: LAB.N 09:22
PROVIDERS: ATTEND Family Medicine
DX: I10 Essential (primary) hypertension (principal); E11.9 Type 2 diabetes mellitus without complications; C61 Malignant neoplasm of prostate; I48.91 Unspecified atrial fibrillation; Z79.01 Long term (current) use of anticoagulants; E78.5 Hyperlipidemia, unspecified
CPT/HCPCS: 36415; 80053; 80061; 82043; 82570; 83036; 83721; 84153; 84443; 85025

== ENCOUNTER 2022-12-23 09:24 | Outpatient (CLI) | payer MEDICARE, OTHER ==
[2022-12-23 11:28] LABS: BASOPHILS % (AUTO) 0.6 %; EOSINOPHILS # (AUTO) 0.1 10^3/uL (0.0-0.7); EOSINOPHILS % (AUTO) 1.5 %; HCT - HEMATOCRIT 38.8 % (42.0-52.0); HGB - HEMOGLOBIN 12.6 g/dL (14.0-18.0); LYMPHOCYTES # (AUTO) 1.9 10^3/uL (1.5-3.5); LYMPHOCYTES % (AUTO) 28.7 %; MEAN CORPUSCULAR HEMOGLOBIN 31.7 pg (27.0-31.0); MEAN CORPUSCULAR HGB CONC 32.5 g/dL (32.0-36.0); MEAN CORPUSCULAR VOLUME 97.7 fL (80.0-94.0); MEAN PLATELET VOLUME 10.1 fL (7.4-11.4); MONOCYTES # (AUTO) 0.5 10^3/uL (0.0-1.0); MONOCYTES % (AUTO) 7.5 %; NEUTROPHILS # (AUTO) 4.1 10^3/uL (1.5-6.6); NEUTROPHILS % (AUTO) 61.1 %; PLT - PLATELET COUNT 193 10^3/uL (130-450); RED BLOOD COUNT 3.97 10^6/uL (4.70-6.10); WHITE BLOOD COUNT 6.6 x10^3/uL (4.8-10.8)
[2022-12-23 11:50] LABS: ALBUMIN 3.7 g/dL (3.2-5.5); ALBUMIN/GLOBULIN RATIO 1.1 (1.0-2.2); ALKALINE PHOSPHATASE 59 IU/L (42-121); ALT ALANINE AMINOTRANSFERASE 12 IU/L (10-60); AST ASPARTATE AMINOTRANSFERASE 15 IU/L (10-42); BILIRUBIN,TOTAL 0.9 mg/dL (0.2-1.0); BUN - BLOOD UREA NITROGEN 19 mg/dL (6-20); CALCIUM 9.3 mg/dL (8.5-10.3); CARBON DIOXIDE - CO2 25 mmol/L (21-32); CHLORIDE 98 mmol/L (101-111); CHOL/HDL RATIO 2.9 (<5.0); CHOLESTEROL 114 mg/dL; CREATININE 1.1 mg/dL (0.6-1.2); GFR - MDRD 64 (>89); GLUCOSE 189 mg/dL (70-100); HDL CHOLESTEROL 40 mg/dL; LDL CHOLESTEROL,CALCULATED 35 mg/dL; LDL/HDL RATIO 0.9 (<3.6); SODIUM 135 mmol/L (135-145); TRIGLYCERIDES 193 mg/dL; VLDL CHOLESTEROL 39 mg/dL
[2022-12-23 12:03] LABS: CREATININE,URINE 163.5 mg/dL; MICROALBUM/CREATININE RATIO,UR 97.9 ug/mg (<30.0)
[2022-12-23 12:06] LABS: THYROID STIMULATING HORMONE 3.13 uIU/mL (0.34-5.60)
[2022-12-23 12:13] LABS: ESTIMATED AVERAGE GLUCOSE 171 mg/dL (70-100); HEMOGLOBIN A1c% 7.6 % (4.27-6.07)
== END 2022-12-23 09:25 | disposition home or self-care (01) ==
LOC: LAB.N 09:24
PROVIDERS: ATTEND Family Medicine
DX: I10 Essential (primary) hypertension (principal); C61 Malignant neoplasm of prostate; E66.9 Obesity, unspecified; Z79.01 Long term (current) use of anticoagulants; I48.91 Unspecified atrial fibrillation; E78.5 Hyperlipidemia, unspecified; E11.9 Type 2 diabetes mellitus without complications; Z90.5 Acquired absence of kidney
CPT/HCPCS: 36415; 80053; 80061; 82043; 82570; 83036; 83721; 84443; 85025

== ENCOUNTER 2023-07-20 09:37 | Outpatient (CLI) | payer MEDICARE, OTHER ==
[2023-07-20 12:09] LABS: BASOPHILS % (AUTO) 0.6 %; EOSINOPHILS # (AUTO) 0.1 10^3/uL (0.0-0.7); HCT - HEMATOCRIT 39.3 % (42.0-52.0); HGB - HEMOGLOBIN 12.9 g/dL (14.0-18.0); LYMPHOCYTES # (AUTO) 2.2 10^3/uL (1.5-3.5); LYMPHOCYTES % (AUTO) 30.1 %; MEAN CORPUSCULAR HEMOGLOBIN 32.3 pg (27.0-31.0); MEAN CORPUSCULAR HGB CONC 32.8 g/dL (32.0-36.0); MEAN CORPUSCULAR VOLUME 98.3 fL (80.0-94.0); MEAN PLATELET VOLUME 9.9 fL (7.4-11.4); MONOCYTES # (AUTO) 0.4 10^3/uL (0.0-1.0); MONOCYTES % (AUTO) 6.1 %; NEUTROPHILS # (AUTO) 4.4 10^3/uL (1.5-6.6); NEUTROPHILS % (AUTO) 61.5 %; PLT - PLATELET COUNT 202 10^3/uL (130-450); RED CELL DISTRIBUTION WIDTH 12.5 % (12.0-15.0); WHITE BLOOD COUNT 7.2 x10^3/uL (4.8-10.8)
[2023-07-20 13:04] LABS: CALCIUM 9.1 mg/dL (8.5-10.3); CREATININE 1.1 mg/dL (0.6-1.3)
[2023-07-20 13:50] LABS: ESTIMATED AVERAGE GLUCOSE 189 mg/dL (70-100); HEMOGLOBIN A1c% 8.2 % (4.27-6.07)
== END 2023-07-20 09:38 | disposition home or self-care (01) ==
LOC: LAB.N 09:37
PROVIDERS: ATTEND Family Medicine
DX: Z00.00 Encounter for general adult medical examination without abnormal findings (principal); K21.9 Gastro-esophageal reflux disease without esophagitis; I10 Essential (primary) hypertension; E11.9 Type 2 diabetes mellitus without complications; Z85.46 Personal history of malignant neoplasm of prostate
CPT/HCPCS: 36415; 80048; 83036; 84153; 85025

== ENCOUNTER 2024-01-09 15:40 | Emergency (ER) | payer MEDICARE, OTHER ==
--- NOTE | 2024-01-09 16:20 | ED Physician Documentation ---
History of Present Illness - Stated complaint Stated Complaint: RT HIP PX,WEAK LEGS, - Chief complaint Chief Complaint: General - History obtained from History obtained from: Patient, Family - Additonal information Additional information: 83-year-old gentleman with history of prostate cancer treated with seeds in remission, benign brain tumor and seizure disorder resolved since removal of the brain tumor approximately 7 years ago, history of kidney cancer, history of A- fib on DOAC, hypertension, DVT presents with family. Since yesterday he has had urinary incontinence, just a frequent dribbling and right hip pain only present with motion. There was no injury. He is very weak when he walks and can barely hold himself up. No headaches, chest pain, trouble breathing. No fevers. Family thinks the area of the left lower eyelid and laterally is puffy. PD PAST MEDICAL HISTORY - Past Medical History Past Medical History: Yes Cardiovascular: Hypertension, High cholesterol, Peripheral Vascular Disease, Deep vein thrombosis, Atrial fibrillation Respiratory: None Neuro: Seizure disorder Endocrine/Autoimmune: Type 2 diabetes GI: GERD, Ulcers, Hiatal hernia, Colon polyps, Diverticulitis, Other : Nocturia, Frequency, Other HEENT: Chronic vision loss, Glaucoma, Chronic sinusitis, Other Psych: None Musculoskeletal: Osteoarthritis, Gout Derm: Other - Past Surgical History Past Surgical History: Yes General: EGD, Colonoscopy Ortho: Arthroscopic surgery Neuro: Craniotomy HEENT: Cataracts - Present Medications Home Medications: Ambulatory Orders Medication Instructions Recorded Confirmed Metformin HCl [Metformin HCl ER] 500 mg PO BID 04/19/13 01/09/24 Cyanocobalamin [Vitamin B-12] 500 mcg PO DAILY 05/09/14 01/09/24 Pnv No.95/Ferrous Fum/Folic AC 1 tab PO DAILY 05/09/14 01/09/24 [ Tablet] Ascorbic Acid [Vitamin C] 500 mg PO BID 03/11/16 01/09/24 Metoprolol Tartrate [Lopressor] 50 mg PO BID 03/11/16 01/09/24 Ferrous Gluconate [Iron] 240 mg PO DAILY PM 12/09/18 01/09/24 Rivaroxaban [Xarelto] 20 mg PO HS 07/05/21 01/09/24 Potassium Chloride 10 meq PO QID 07/14/21 01/09/24 Rosuvastatin Calcium [Crestor] 10 mg PO HS 01/09/24 01/09/24 hydroCHLOROthiazide [Hydrodiuril] 12.5 mg PO DAILY 01/09/24 01/09/24 - Allergies Allergies/Adverse Reactions: Allergies Allergy/AdvReac Type Severity Reaction Status Date / Time ciprofloxacin [From Cipro] Allergy Mild Hives Verified 01/09/24 15:48 ciprofloxacin HCl * Allergy Mild Hives Verified 01/09/24 15:48 [From Cipro] - Social History Does the pt smoke?: No Smoking Status: Never smoker Does the pt drink ETOH?: Yes Does the pt have substance abuse?: No - Immunizations Immunizations are current?: Yes - POLST Patient has POLST: No POLST Status: Full Code PD ED PE NORMAL - Vitals Vital signs reviewed: Yes - General General: Alert and oriented X 3, No acute distress - HEENT HEENT: PERRL, EOMI, Other (There is some mild edema around the left lower eyelid, no ptosis.) - Neck Neck: Supple, no meningeal sign, No bony TTP - Cardiac Cardiac: RRR, No murmur - Respiratory Respiratory: No respiratory distress, Clear bilaterally - Abdomen Abdomen: Normal bowel sounds, Soft, Non tender - Back Back: No CVA TTP, No spinal TTP - Derm Derm: Normal color, Warm and dry - Extremities Extremities: Other (I am able to range the right hip without pain. He is able to hold it off the bed for 5 seconds without drift. He has good strength in the remainder of his extremities.) - Neuro Neuro: Alert and oriented X 3, No motor deficit, No sensory deficit, Normal speech Eye Opening: Spontaneous Motor: Obeys Commands Verbal: Oriented GCS Score: 15 - Psych Psych: Normal mood, Normal affect Results - Vitals Vitals: Vital Signs - 24 hr 01/09/24 01/09/24 01/09/24 15:48 16:57 19:59 Temperature 36.8 C 36.7 C Heart Rate 94 91 87 Respiratory 18 18 16 Rate Blood Pressure 144/65 H 135/82 H 141/65 H O2 Saturation 96 97 97 Oxygen O2 Source Room air - EKG (time done) 1635 EKG releavant findings:: EKG personally interpreted by author of this note. Relevant findings are: Rate: Rate (enter#) (85) Rhythm: NSR (w pvc) [place]: Normal Intervals: Other (short julienne) QRS: Low voltage Ischemia: Normal ST segments. No: ST elevation c/w ischemia, ST depression - Labs Labs: Laboratory Tests 01/09/24 01/09/24 01/09/24 17:41 17:41 17:41 WBC 6.3 RBC 4.03 L Hgb 12.6 L Hct 38.6 L MCV 95.8 H MCH 31.3 H MCHC 32.6 RDW 13.0 Plt Count 179 MPV 9.1 Neut # (Auto) 4.8 Lymph # (Auto) 1.0 L [place] # (Auto) 0.4 Eos # (Auto) 0.0 Baso # (Auto) 0.0 Absolute Nucleated RBC 0.00 Nucleated RBC % 0.0 Sodium 136 Potassium 3.9 Chloride 100 L Carbon Dioxide 27 Anion Gap 9.0 BUN 17 Creatinine 1.3 Estimated GFR (MDRD) 53 L Glucose 160 H Lactic Acid 1.1 Calcium 9.0 Total Bilirubin 0.9 AST 13 ALT 9 L Alkaline Phosphatase 59 Total Protein 6.6 Albumin 3.7 Globulin 2.9 Albumin/Globulin Ratio 1.3 Urine Color Urine Clarity Urine pH Ur Specific [place] Urine Protein Urine Glucose (UA) Urine Ketones Urine Occult Blood Urine Nitrite Urine Bilirubin Urine Urobilinogen Ur Leukocyte Esterase Urine RBC Urine WBC Ur Squamous Epith Cells Urine Bacteria Ur Microscopic Review Urine Culture Comments 01/09/24 17:49 WBC RBC Hgb Hct MCV MCH MCHC RDW Plt Count MPV Neut # (Auto) Lymph # (Auto) [place] # (Auto) Eos # (Auto) Baso # (Auto) Absolute Nucleated RBC Nucleated RBC % Sodium Potassium Chloride Carbon Dioxide Anion Gap BUN Creatinine Estimated GFR (MDRD) Glucose Lactic Acid Calcium Total Bilirubin AST ALT Alkaline Phosphatase Total Protein Albumin Globulin Albumin/Globulin Ratio Urine Color YELLOW Urine Clarity CLEAR Urine pH 6.0 Ur Specific [place] 1.025 Urine Protein 30 H Urine Glucose (UA) NEGATIVE Urine Ketones 15 H Urine Occult Blood NEGATIVE Urine Nitrite NEGATIVE Urine Bilirubin NEGATIVE Urine Urobilinogen 1 (NORMAL) Ur Leukocyte Esterase NEGATIVE Urine RBC None Seen Urine WBC 0-3 Ur Squamous Epith Cells NONE SEEN Urine Bacteria Rare Ur Microscopic Review INDICATED Urine Culture Comments NOT INDICATED - Rads (name of study) CT of the head showing stable area that is likely a meningioma. Relevant Findings:: Final report received, EMP independent interpretation of test PD Medical Decision Making - ED course ED course: CBC showing a white count of 6.3, hemoglobin 12.6, platelets 179. CMP unremarkable, lactate normal, urinalysis with some protein and ketones potentially consistent with dehydration but otherwise unremarkable without infection. 83-year-old gentleman presents with weakness episode, listing and hip pain that was atraumatic. Hip exam here is not consistent with fracture or septic joint and neurologic exam was normal. CT of the head as above and discussed with patient and family and the need for MRI was discussed on a nonemergent basis. After some IV fluids patient was walking pretty much normally again, had no hip pain and felt back to normal. Not clear what caused his listing today. Could have been a TIA but certainly not a classic TIA syndrome and that would not explain the resolved hip pain. Regardless he very much wants to go home but have given him close return precautions and discussed with family as well as the need for MRI and to call Dr. Conde tomorrow. Departure - Departure Disposition: 01 Home, Self Care Clinical Impression: Abnormal CT of the head, Dysequilibrium, Hip pain, right Condition: Good Record reviewed to determine appropriate education?: Yes Follow-Up: Vinayak Conde MD [Provider Admit Priv/Credential] - Comments: Call Dr. Polanco office tomorrow. You do have an abnormality on your head CT which does require follow-up MRI with and without contrast given your history of brain surgery. Likely though the hip pain has resolved as have your other symptoms. Drink plenty fluids, return if worse. You probably should be seen by Dr. Calzada sooner than your February visit that you have scheduled. Forms: PCP List
[2024-01-09 18:04] LABS: ALBUMIN 3.7 g/dL (3.2-5.5); ALBUMIN/GLOBULIN RATIO 1.3 (1.0-2.2); BILIRUBIN,TOTAL 0.9 mg/dL (0.2-1.0); CREATININE 1.3 mg/dL (0.6-1.3); POTASSIUM 3.9 mmol/L (3.5-4.5); TOTAL PROTEIN 6.6 g/dL (6.4-8.9)
[2024-01-09 18:22] LABS: BASOPHILS % (AUTO) 0.3 %; HCT - HEMATOCRIT 38.6 % (42.0-52.0); HGB - HEMOGLOBIN 12.6 g/dL (14.0-18.0); LYMPHOCYTES % (AUTO) 16.1 %; MEAN CORPUSCULAR HEMOGLOBIN 31.3 pg (27.0-31.0); MEAN CORPUSCULAR HGB CONC 32.6 g/dL (32.0-36.0); MEAN CORPUSCULAR VOLUME 95.8 fL (80.0-94.0); MEAN PLATELET VOLUME 9.1 fL (7.4-11.4); MONOCYTES # (AUTO) 0.4 10^3/uL (0.0-1.0); MONOCYTES % (AUTO) 6.2 %; NEUTROPHILS # (AUTO) 4.8 10^3/uL (1.5-6.6); NEUTROPHILS % (AUTO) 76.8 %; PLT - PLATELET COUNT 179 10^3/uL (130-450); RED BLOOD COUNT 4.03 10^6/uL (4.70-6.10); WHITE BLOOD COUNT 6.3 x10^3/uL (4.8-10.8)
[2024-01-09 18:39] LABS: BILIRUBIN,URINE NEGATIVE (NEGATIVE); GLUCOSE, URINE (UA) NEGATIVE (NEGATIVE); KETONES,URINE (UA) 15 mg/dL (NEGATIVE); LEUKOCYTE ESTERASE, URINE NEGATIVE (NEGATIVE); NITRITE,URINE NEGATIVE (NEGATIVE); OCCULT BLOOD,URINE NEGATIVE (NEGATIVE); PROTEIN,URINE 30 mg/dL (NEGATIVE); UROBILINOGEN,URINE 1 (NORMAL) E.U./dL (NORMAL)
[2024-01-09 18:43] LABS: CLARITY,URINE CLEAR (CLEAR)
[2024-01-09 18:56] LABS: BACTERIA,URINE Rare /HPF (None Seen); RBC,URINE None Seen /HPF (0-5); SQUAMOUS EPITHELIAL CELL,UR NONE SEEN (<= Few); WBC,URINE 0-3 /HPF (0-3)
--- NOTE | 2024-01-09 19:13 | CT Report ---
PROCEDURE: Head WO INDICATIONS: weakness TECHNIQUE: Noncontrast 4.5 mm thick angled axial sections acquired from the foramen magnum to the vertex. For r adiation dose reduction, the following was used: automated exposure control, adjustment of mA and/or kV according to patient size. COMPARISON: 07/06/2021 FINDINGS: Image quality: Diagnostic CSF spaces: Chronic changes in the right middle fossa mostly representing CSF space Volume: Vascular calcifications. Periventricular white matter disease is commonly seen with chronic m icroangiopathy. Volume loss is present. These findings are moderate to severe. Brain: No intracranial hemorrhage. Johnston-white differentiation is grossly maintained. Right frontal e ncephalomalacia again seen. Craniofacial structures: Right craniotomy changes. IMPRESSION: Stable right extra-axial mass again seen, likely a meningioma. Consider nonurgent MRI follow-up as pr eviously suggested. Right postsurgical changes. No acute hemorrhage. No gross loss of johnston-white diff erentiation. Reviewed by: Vance Zhang MD on 01/09/2024 7:12 PM PST Approved by: Vance Zhang MD on 01/09/2024 7:12 PM PST Station ID: [id number]
[2024-01-09] MEDS: SODIUM CHLORIDE 0.9% 1,000 ML IV STA (19:14)
--- NOTE | 2024-01-09 19:25 | XRAY Report ---
PROCEDURE: Hip w/Pelvis 2-3V RT INDICATIONS: hip pain TECHNIQUE: 2 views of the hip were acquired. COMPARISON: None. FINDINGS: Bones: Limited evaluation due to positioning. Mild bilateral degenerative changes. No displaced frac ture or dislocation. Soft tissues: Vascular calcifications. Prostate radiation markers. IMPRESSION: Mild bilateral degenerative changes. Limited radiograph due to positioning, femoral neck are not well seen. Consider repeat x-ray or CT. Reviewed by: Vance Zhang MD on 01/09/2024 7:24 PM PST Approved by: Vance Zhang MD on 01/09/2024 7:24 PM PST Station ID: [id number]
[2024-01-09 20:59] VITALS: BP 127/76; O2SAT 98
== END 2024-01-09 20:52 | disposition home or self-care (01) ==
LOC: ED 15:40
DX: R93.0 Abnormal findings on diagnostic imaging of skull and head, not elsewhere classified (principal); R42 Dizziness and giddiness; M25.551 Pain in right hip; Z86.011 Personal history of benign neoplasm of the brain
CPT/HCPCS: 36415; 80053; 81001; 81003; 83605; 85025; 87086; 93005; 96360; 99284

== ENCOUNTER 2024-01-24 13:47 | Outpatient (CLI) | payer MEDICARE, OTHER ==
[2024-01-24] MEDS ORDERED: DIATRIZOATE MEGLU/DIATRIZO SOD 30 ML BOTTLE PO ONE (13:53)
[2024-01-24] MEDS ORDERED: iohexoL-300 100 ML VIAL ONE (13:53)
--- NOTE | 2024-01-24 16:11 | CT Report ---
PROCEDURE: Abdomen/Pelvis W INDICATIONS: DIVERTICULITIS CONTRAST: Omni 300 100ml TECHNIQUE: After the administration of intravenous contrast, a CT scan of the abdomen and pelvis was performed. Images were recorded and evaluated at appropriate window settings. Reformats: coronal and sagittal. F or radiation dose reduction, the following was used: automated exposure control, adjustment of mA and /or kV according to patient size. COMPARISON: 07/14/2021 FINDINGS: Image quality: Diagnostic. Lower chest: Moderate left basilar reticulonodular pulmonary opacity as well as bronchiectasis, new c ompared to 07/14/2021 Liver: No solid mass. Gallbladder and biliary tree: Multiple calculi within the gallbladder lumen. No evidence of acute cho lecystitis. Spleen: No splenomegaly. Pancreas: No pancreatic ductal dilation. Adrenals: No adrenal nodule. Kidneys and ureters: Left kidney is absent. No hydronephrosis. No renal cystic lesion which requires follow up. No solid mass. Stomach, bowel and peritoneum: No bowel distension. No pathologic free fluid. There is a roughly 70 m m lung region of fat density within the lumen of a small bowel loop within the left upper quadrant (s eries 2 image 45), consistent with a lipoma. Diverticulosis of the descending and sigmoid colon. No e vidence of acute diverticulitis. Lymph nodes: No central or retroperitoneal adenopathy. Vessels: No infrarenal aortic aneurysm. PELVIS Reproductive organs: Multiple seeds within the prostate. Bladder: No abnormal wall thickening, accounting for underdistention. Pelvic lymph nodes: No pelvic adenopathy by size criteria. Bones: No aggressive osseous abnormality. Other: No significant ventral or inguinal hernia. IMPRESSION: 1. Left basilar bronchiectasis and opacity, suggestive of chronic scarring. Superimposed pneumonitis cannot be excluded. 2. Small bowel lipoma as above. 3. Cholelithiasis. No evidence of cholecystitis. 4. Diverticulosis without evidence of acute diverticulitis. Reviewed by: Nirmal Brandon MD on 01/24/2024 4:09 PM PDT Approved by: Nirmal Brandon MD on 01/24/2024 4:09 PM PDT Station ID: [id number]
[2024-01-24] MEDS: iohexoL-300 100 ML VIAL IVP ONE (16:32)
[2024-01-24] MEDS: DIATRIZOATE MEGLU/DIATRIZO SOD 30 ML BOTTLE PO ONE (16:33)
== END 2024-01-24 13:48 | disposition home or self-care (01) ==
LOC: DI 13:47
PROVIDERS: ATTEND Family Medicine
DX: J47.9 Bronchiectasis, uncomplicated (principal); D17.79 Benign lipomatous neoplasm of other sites; K80.20 Calculus of gallbladder without cholecystitis without obstruction; K57.30 Diverticulosis of large intestine without perforation or abscess without bleeding
CPT/HCPCS: 74177; Q9963; Q9967

== ENCOUNTER 2024-03-18 08:23 | Outpatient (CLI) | payer MEDICARE, OTHER ==
[2024-03-18 08:48] LABS: CREATININE 1.1 mg/dL (0.6-1.3)
[2024-03-18] MEDS ORDERED: GADOTERATE MEGLUMINE 10 MMOL/20 ML VIAL ONE (09:49)
[2024-03-18] MEDS ORDERED: GADOTERATE MEGLUMINE 5 MMOL/10 ML VIAL ONE (09:49)
[2024-03-18] MEDS: GADOTERATE MEGLUMINE 10 MMOL/20 ML VIAL IVP ONE (10:45)
--- NOTE | 2024-03-20 12:46 | MRI Report ---
PROCEDURE: Brain W/WO INDICATIONS: MENINGIOMA CONTRAST: CLARISCAN 20.4 ML TECHNIQUE: Noncontrast axial T1 spin echo, axial T2 fast spin echo, sagittal and axial FLAIR, coronal T2 fast sp in echo, axial gradient echo, axial diffusion and ADC through the brain. After the administration of contrast, axial and coronal T1 spin echo with fat saturation through the brain. COMPARISON: 03/26/2014. Correlation is also made with head CT, 01/09/2024 FINDINGS: Image quality: Diagnostic CSF spaces: Basal cisterns are patent. No extra-axial fluid collections. Ventricles are normal in size and shape. Brain: The previously seen enhancing mass has been removed. No residual masses can be seen. No new m asses are seen. There is a mild amount of encephalomalacia seen involving the right frontal lobe anteriorly and later ally, as on series 9 image 15. No midline shift. There is cerebral volume loss for age. There is periventricular white matter chr onic small vessel ischemic change. The brainstem appears normal. Diffusion-weighted images demonstr ate no acute ischemic insults. No chronic ischemic insults. Normal intravascular flow voids are pre sent. Skull and face: Right-sided craniotomy change is seen. Calvarial marrow is normal in signal. Orbits appear normal. Incidental note is made of bilateral lens replacements. There is metallic artifact seen involving the left forehead, with a small radiopaque foreign body seen at this site on the prior recent CT examination. Sinuses: There is a mucous retention cyst seen involving the inferior left maxillary sinus. Sinuses and mastoids otherwise appear clear. IMPRESSION: Postoperative study within normal limits, with right-sided craniotomy and interval removal of the pre viously seen mass. No residual masses are seen. No new masses. Reviewed by: Jonatan Zavala MD on 03/20/2024 11:44 AM OMAR Approved by: Jonatan Zavala MD on 03/20/2024 11:44 AM OMAR Station ID: [id number]
== END 2024-03-18 08:24 | disposition home or self-care (01) ==
LOC: LAB 08:23
PROVIDERS: ATTEND Family Medicine
DX: Z09 Encounter for follow-up examination after completed treatment for conditions other than malignant neoplasm (principal); Z86.011 Personal history of benign neoplasm of the brain
CPT/HCPCS: 36415; 82565

== ENCOUNTER 2024-03-25 11:27 | Outpatient (CLI) | payer MEDICARE, OTHER | END 2024-03-25 23:59 | disposition critical access hospital (66) | LOC: EMS 11:27 | DX: R47.89 Other speech disturbances (principal) | CPT/HCPCS: A0425; A0429 ==

== ENCOUNTER 2024-03-25 11:50 | Emergency (ER) | payer MEDICARE, OTHER ==
[2024-03-25] MEDS ORDERED: iohexoL-300 100 ML VIAL ONE (12:15)
--- NOTE | 2024-03-25 12:18 | ED Physician Documentation ---
PD HPI FOCAL NEURO - Stated complaint Stated Complaint: STROKE - Chief complaint Chief Complaint: Neuro - History obtained from History obtained from: Patient, EMS - History of Present Illness Timing - onset: How many days ago (2) Timing - duration: Days (2) Timing - details: Gradual onset, Still present Severity of deficit: Mild Weakness: No: Face, Arm, Hand, Leg, Foot, Right, Left, Other Numbness: No: Face, Arm, Hand, Leg, Foot, Right, Left, Other Associated symptoms: Other (expressive aphasia) Contributing factors: positive: Anticoagulated Baseline status: positive: A&OX3, ambulatory, indep Similar symptoms before: Has not had sx before Recently seen: Not recently seen - Additional information Additional information: Last seen normal 2 nights ago. He has not been eating or drinking well and yesterday he seemed a bit confuse to his family. He tells me that he feels that he is having some difficulty getting the right words out. He states that he can tell the words that he wants to say but he cannot get his mouth to say it. He is able to converse quite well but I did not challenge the patient entirely. Review of Systems Constitutional: denies: Fever Eyes: denies: Decreased vision Ears: denies: Ear pain Nose: denies: Congestion Throat: denies: Sore throat Cardiac: denies: Chest pain / pressure, Palpitations Respiratory: denies: Dyspnea, Cough GI: denies: Abdominal Pain, Nausea, Vomiting, Constipation, Diarrhea : denies: Dysuria, Frequency PD PAST MEDICAL HISTORY - Past Medical History Cardiovascular: Hypertension, High cholesterol, Peripheral Vascular Disease, Deep vein thrombosis, Atrial fibrillation Respiratory: None Neuro: Seizure disorder Endocrine/Autoimmune: Type 2 diabetes GI: GERD, Ulcers, Hiatal hernia, Colon polyps, Diverticulitis, Other : Nocturia, Frequency, Other HEENT: Chronic vision loss, Glaucoma, Chronic sinusitis, Other Psych: None Musculoskeletal: Osteoarthritis, Gout Derm: Other - Past Surgical History Past Surgical History: Yes General: EGD, Colonoscopy Ortho: Arthroscopic surgery Neuro: Craniotomy HEENT: Cataracts - Present Medications Home Medications: Ambulatory Orders Medication Instructions Recorded Confirmed Metformin HCl [Metformin HCl ER] 500 mg PO BID 04/19/13 01/09/24 Cyanocobalamin [Vitamin B-12] 500 mcg PO DAILY 05/09/14 01/09/24 Pnv No.95/Ferrous Fum/Folic AC 1 tab PO DAILY 05/09/14 01/09/24 [ Tablet] Ascorbic Acid [Vitamin C] 500 mg PO BID 03/11/16 01/09/24 Metoprolol Tartrate [Lopressor] 50 mg PO BID 03/11/16 01/09/24 Ferrous Gluconate [Iron] 240 mg PO DAILY PM 12/09/18 01/09/24 Rivaroxaban [Xarelto] 20 mg PO HS 07/05/21 01/09/24 Potassium Chloride 10 meq PO QID 07/14/21 01/09/24 Rosuvastatin Calcium [Crestor] 10 mg PO HS 01/09/24 01/09/24 hydroCHLOROthiazide [Hydrodiuril] 12.5 mg PO DAILY 01/09/24 01/09/24 - Allergies Allergies/Adverse Reactions: Allergies Allergy/AdvReac Type Severity Reaction Status Date / Time ciprofloxacin [From Cipro] Allergy Mild Hives Verified 03/25/24 12:19 ciprofloxacin HCl * Allergy Mild Hives Verified 03/25/24 12:19 [From Cipro] cephalexin Allergy Anaphylaxis Verified 03/25/24 12:19 tetanus and diphtheria Allergy Unknown Verified 03/25/24 12:19 toxoids - Social History Does the pt smoke?: No Smoking Status: Never smoker Does the pt drink ETOH?: Yes Does the pt have substance abuse?: No - Immunizations Immunizations are current?: Yes - POLST Patient has POLST: No POLST Status: Full Code PD ED PE NORMAL - Vitals Vital signs reviewed: Yes (normal ) - General General: Alert and oriented X 3, No acute distress, Well developed/nourished - HEENT HEENT: Atraumatic, PERRL, EOMI, Other (parched mucous membranes ) - Neck Neck: Supple, no meningeal sign, No bony TTP - Cardiac Cardiac: RRR, No murmur - Respiratory Respiratory: No respiratory distress, Clear bilaterally - Abdomen Abdomen: Normal bowel sounds, Soft, Non tender, Non distended, No organomegaly - Back Back: No CVA TTP, No spinal TTP - Derm Derm: Normal color, Warm and dry, No rash - Extremities Extremities: No deformity, No edema - Neuro Neuro: Alert and oriented X 3, director of outpatient services 2-12 intact, No motor deficit, No sensory deficit, Normal speech Eye Opening: Spontaneous Motor: Obeys Commands Verbal: Oriented GCS Score: 15 - Psych Psych: Normal mood, Normal affect NIHSS - Time Time: 12:00 - Level of Consciousness Level of consciousness: (0) Alert, Keenly responsive LOC Questions: (0) Answers both Q's correct LOC Commands: (0) Performs both correctly - Gaze Best Gaze: (0) Normal - Visual Visual: (0) No loss - Facial Palsy Facial Palsy: (0) Normal, symmetrical movement - Motor Arms (both separate) Motor Arm (right): (0) No drift Motor Arm (left): (0) No drift - Motor Legs (both separate) Motor Leg (right): (0) No drift Motor Leg (left): (0) No drift - Limb Ataxia Limb Ataxia: (0) Absent - Sensory Sensory: (0) Normal - Best Language Best Language: (1) [id number] - Dysarthria Dysarthria: (0) Normal - Extinction and Inattention (formally neg Extinction and inattention: (0) No abnormality - Total Score/Results Total Score/Result: 1 Results - Vitals Vitals: Vital Signs - 24 hr 03/25/24 03/25/24 03/25/24 11:55 14:59 16:14 Temperature 36.3 C L Heart Rate 90 105 H 108 H Respiratory 16 26 H 22 Rate Blood Pressure 126/76 129/71 129/71 O2 Saturation 95 94 97 Oxygen O2 Source Room air - EKG (time done) 1220 EKG releavant findings:: EKG personally interpreted by author of this note. Relevant findings are: Rate: Rate (enter#) (89) QRS: Low voltage Ischemia: Q waves Compare to prior EKG: Changed from prior EKG ([facility] [place] low voltage is more prominent) Computer interpretation: Agree with computer - Labs Labs: Laboratory Tests 03/25/24 03/25/24 03/25/24 12:20 12:20 14:49 WBC 16.9 H RBC 3.68 L Hgb 11.7 L Hct 36.5 L MCV 99.2 H MCH 31.8 H MCHC 32.1 RDW 13.9 Plt Count 182 MPV 9.5 Neut # (Auto) 13.8 H Lymph # (Auto) 1.7 [place] # (Auto) 1.1 H Eos # (Auto) 0.0 Baso # (Auto) 0.0 Absolute Nucleated RBC 0.00 Nucleated RBC % 0.0 Sodium 138 Potassium 3.8 Chloride 103 Carbon Dioxide 27 Anion Gap 8.0 BUN 29 H Creatinine 1.4 H Estimated GFR (MDRD) 48 L Glucose 219 H Calcium 8.7 Total Bilirubin 1.1 H AST 9 L ALT 10 Alkaline Phosphatase 61 Total Protein 6.2 L Albumin 3.2 Globulin 3.0 Albumin/Globulin Ratio 1.1 Lipase 11 Urine Color YELLOW Urine Clarity CLEAR Urine pH 6.0 Ur Specific [place] 1.010 Urine Protein 30 H Urine Glucose (UA) NEGATIVE Urine Ketones NEGATIVE Urine Occult Blood MODERATE H Urine Nitrite NEGATIVE Urine Bilirubin NEGATIVE Urine Urobilinogen 1 (NORMAL) Ur Leukocyte Esterase NEGATIVE Urine RBC 6-10 H Urine WBC 0-3 Ur Squamous Epith Cells FEW Squamous Urine Bacteria Rare Urine Casts 3-5 RBC Casts Ur Microscopic Review INDICATED Urine Culture Comments NOT INDICATED Ethyl Alcohol < 10.0 - Rads (name of study) CT angio neck Relevant Findings:: Prelim report reviewed, EMP independent interpretation of test CT angio head Relevant Findings:: Prelim report reviewed (Impression: Right perional craniotomy and right temporal resection cavity, stable), EMP independent interpretation of test Procedures - IVC sono (time) 1205 Bedside IVC sono: IVC measures (cm) (0.82), IVC collapsed c insp (cm) (complete), Dehydration (est 2 liter deficit) PD Medical Decision Making - ED course Complexity details: reviewed old records, reviewed results, re-evaluated patient, considered differential, d/w patient, d/w family Reviewed Lab Results: We reviewed a complete blood blood cell count showing an elevated white blood cell count of 16.9 hemoglobin of 11.7 hematocrit of 36.5 these visits these values being close to the patient's baseline on recent laboratory studies with the exception of the elevated white count. Chemistries were remarkable for an elevated BUN of 29 and a creatinine of 1.4 this patient's creatinine has been normal since 2018 and only previously elevated with significant dehydration. His BUN has been normal again with the exception of prior episodes of dehydration.Urinalysis is unremarkable with exception of some occult blood and blood alcohol less than 10.This patient is primarily diagnosed with significant dehydration and his laboratory results showing elevated BUN and creatinine similar to what he had previously with episodic dehydration support this. ED course: 84-year-old male presenting to the emergency department not feeling well and having difficult time expressing specific words. He had a nonfocal neurologic exam otherwise and was found to be significantly dehydrated on interrogation of the IVC with POCUS. He was administered intravenous saline with improvement in his condition. He felt that he was talking and acting normally at the time of discharge. Departure - Departure Disposition: 01 Home, Self Care Clinical Impression: Dehydration Altered mental status Qualifiers: Altered mental status type: somnolence Qualified Code(s): R40.0 - Somnolence Condition: Stable Instructions: ED Dehydration Follow-Up: Vinayak Conde MD [Primary Care Provider] - Comments: Abel today it looks like your difficulty with speaking and getting around is related to significant dehydration again. This likely happened over the last several days and is related to not drinking enough water. My recommendation is to attempt to drink 2 quarts of fluids daily. Forms: PCP List Discharge Date/Time: 03/25/24 16:15
[2024-03-25 12:25] LABS: BASOPHILS % (AUTO) 0.2 %; HCT - HEMATOCRIT 36.5 % (42.0-52.0); HGB - HEMOGLOBIN 11.7 g/dL (14.0-18.0); LYMPHOCYTES # (AUTO) 1.7 10^3/uL (1.5-3.5); LYMPHOCYTES % (AUTO) 10.2 %; MEAN CORPUSCULAR HEMOGLOBIN 31.8 pg (27.0-31.0); MEAN CORPUSCULAR HGB CONC 32.1 g/dL (32.0-36.0); MEAN CORPUSCULAR VOLUME 99.2 fL (80.0-94.0); MEAN PLATELET VOLUME 9.5 fL (7.4-11.4); MONOCYTES # (AUTO) 1.1 10^3/uL (0.0-1.0); MONOCYTES % (AUTO) 6.8 %; NEUTROPHILS # (AUTO) 13.8 10^3/uL (1.5-6.6); NEUTROPHILS % (AUTO) 81.9 %; PLT - PLATELET COUNT 182 10^3/uL (130-450); RED BLOOD COUNT 3.68 10^6/uL (4.70-6.10); RED CELL DISTRIBUTION WIDTH 13.9 % (12.0-15.0); WHITE BLOOD COUNT 16.9 x10^3/uL (4.8-10.8)
[2024-03-25] MEDS: SODIUM CHLORIDE 0.9% 1,000 ML IV STA ×2 (12:30→14:58)
[2024-03-25 12:54] LABS: ALBUMIN 3.2 g/dL (3.2-5.5); ALBUMIN/GLOBULIN RATIO 1.1 (1.0-2.2); ALKALINE PHOSPHATASE 61 IU/L (42-121); ALT ALANINE AMINOTRANSFERASE 10 IU/L (10-60); AST ASPARTATE AMINOTRANSFERASE 9 IU/L (10-42); BILIRUBIN,TOTAL 1.1 mg/dL (0.2-1.0); BUN - BLOOD UREA NITROGEN 29 mg/dL (6-20); CALCIUM 8.7 mg/dL (8.5-10.3); CARBON DIOXIDE - CO2 27 mmol/L (21-32); CHLORIDE 103 mmol/L (101-111); CREATININE 1.4 mg/dL (0.6-1.3); ETOH - ETHANOL < 10.0 mg/dL; GFR - MDRD 48 (>89); GLUCOSE 219 mg/dL (74-104); LIPASE 11 U/L (11-82); POTASSIUM 3.8 mmol/L (3.5-4.5); SODIUM 138 mmol/L (135-145); TOTAL PROTEIN 6.2 g/dL (6.4-8.9)
[2024-03-25] MEDS: iohexoL-300 100 ML VIAL IVP ONE (13:25)
--- NOTE | 2024-03-25 13:59 | CT Report ---
PROCEDURE: Angio Head/Neck INDICATIONS: expressive aphasia TECHNIQUE: Helical axial CT of the head and neck was obtained during the arterial phase of a intrave nous contrast injection utilizing an angiographic protocol. Multiplanar traditional and MIP reformat s were also obtained. Dose reduction techniques included either automated exposure control or adjustm ent of exposure parameters. COMPARISON: MRI brain 03/18/2024 FINDINGS: Cerebral CT Angiogram: Internal carotid arteries: No acute findings. Intracranial ICA are patent with no significant steno sis. No occlusion. No aneurysm. Atherosclerotic vascular calcification Anterior cerebral arteries: Unremarkable. No significant stenosis. No occlusion. No aneurysm. Middle cerebral arteries: Unremarkable. No significant stenosis. No occlusion. No aneurysm. Posterior cerebral arteries: Unremarkable. No significant stenosis. No occlusion. No aneurysm. Basilar artery: Unremarkable. No significant stenosis. No occlusion. No aneurysm. Vertebral arteries: Unremarkable as visualized. Dural venous sinuses: Unremarkable given phase of enhancement. Other: Right pterional craniotomy and right temporal resection cavity, stable Neck CT Angiogram: Internal carotid arteries: Atherosclerotic calcified plaque in the proximal left ICA results in 40% s tenosis utilizing NASCET criteria. No stenosis on the right Common carotid arteries: Unremarkable. No significant stenosis. No dissection or occlusion. External carotid arteries: Unremarkable. No occlusion. Vertebral arteries: Unremarkable. No significant stenosis. No dissection or occlusion. Aortic Arch and Mediastinum: Partially visualized aortic arch unremarkable without evidence of aneury sm. Origins of the great vessels unremarkable. Other: Degenerative disc disease and arthropathy in the cervical spine IMPRESSION: Atherosclerotic vascular calcification without hemodynamically significant stenosis, large vessel occ lusion, aneurysm or vascular malformation. Approximate 40% left proximal ICA stenosis. Reviewed by: Kaleb Bennett MD on 03/25/2024 12:57 PM AKDT Approved by: Kaleb Bennett MD on 03/25/2024 12:57 PM AKDT Station ID: [id number]
[2024-03-25 14:54] LABS: BILIRUBIN,URINE NEGATIVE (NEGATIVE); GLUCOSE, URINE (UA) NEGATIVE (NEGATIVE); KETONES,URINE (UA) NEGATIVE (NEGATIVE); LEUKOCYTE ESTERASE, URINE NEGATIVE (NEGATIVE); NITRITE,URINE NEGATIVE (NEGATIVE); OCCULT BLOOD,URINE MODERATE (NEGATIVE); PROTEIN,URINE 30 mg/dL (NEGATIVE); UROBILINOGEN,URINE 1 (NORMAL) E.U./dL (NORMAL)
[2024-03-25 14:56] LABS: CLARITY,URINE CLEAR (CLEAR)
[2024-03-25 15:01] LABS: BACTERIA,URINE Rare /HPF (None Seen); CASTS, URINE 3-5 RBC Casts /LPF; SQUAMOUS EPITHELIAL CELL,UR FEW Squamous (<= Few); WBC,URINE 0-3 /HPF (0-3)
[2024-03-25 15:18] VITALS: BP 129/71
[2024-03-25 16:16] VITALS: O2SAT 97
== END 2024-03-25 16:15 | disposition home or self-care (01) ==
LOC: EDUNIT# → ED 11:50
DX: E86.0 Dehydration (principal)
CPT/HCPCS: 36415; 70496; 70498; 80053; 81001; 83690; 85025; 93005; 96360; 99284; G0480; Q9967; 81003; 82077; 87086

== ENCOUNTER 2024-05-04 10:45 | Outpatient (CLI) | payer MEDICARE, OTHER ==
--- NOTE | 2024-05-04 15:48 | XRAY Report ---
PROCEDURE: Chest 2V INDICATIONS: COUGH TECHNIQUE: 2 views of the chest were obtained. COMPARISON: 01/17/2024 FINDINGS: Surgical changes and devices: None. Lungs and pleura: There is blunting of the left costophrenic angle associated with atelectasis and o r infiltrate. Right lung and pleural space clear Mediastinum: Mediastinal contours appear normal. Heart size is normal. Bones and chest wall: No suspicious bony lesions. Overlying soft tissues appear unremarkable. IMPRESSION: Left-sided pleural effusion with atelectasis and or infiltrate Reviewed by: Kaleb Bennett MD on 05/04/2024 2:46 PM AKDT Approved by: Kaleb Bennett MD on 05/04/2024 2:46 PM AKDT Station ID: [id number]
== END 2024-05-04 11:00 | disposition home or self-care (01) ==
LOC: DI.N 10:45
PROVIDERS: ATTEND Physician Assistant
DX: J90 Pleural effusion, not elsewhere classified (principal); R91.8 Other nonspecific abnormal finding of lung field

== ENCOUNTER 2024-05-09 13:49 | Emergency (ER) | payer MEDICARE, OTHER ==
--- NOTE | 2024-05-09 15:10 | XRAY Report ---
PROCEDURE: Chest 2V INDICATIONS: COUGH TECHNIQUE: 2 views of the chest were acquired. COMPARISON: 05/04/2024. FINDINGS: Surgical changes and devices: None. Lungs and pleura: Small left pleural effusion is increased compared to prior. There is adjacent atel ectasis versus consolidation. Right lung appears clear. Mediastinum: Mediastinal contours appear normal. Heart size is normal. Bones and chest wall: No suspicious bony lesions. Overlying soft tissues appear unremarkable. IMPRESSION: Increased small left pleural effusion with adjacent atelectasis versus consolidation. Reviewed by: Guillermo Mabry MD on 05/09/2024 3:09 PM PDT Approved by: Guillermo Mabry MD on 05/09/2024 3:09 PM PDT Station ID: [id number]
--- NOTE | 2024-05-09 15:33 | ED Physician Documentation ---
PD HPI DYSPNEA - Stated complaint Stated Complaint: COUGH,CONGESTION - Chief complaint Chief Complaint: Resp - History obtained from History obtained from: Patient - Additional information Additional information: He had a productive cough especially at night for 2 weeks. No shortness of breath or fevers. He was seen in the clinic and an x-ray showed a small left pleural effusion and he was prescribed doxycycline only. I presume that was because he has a listed allergy to Keflex, but he is unaware of that allergy personally and says he can take amoxicillin. PD PAST MEDICAL HISTORY - Past Medical History Past Medical History: Yes Cardiovascular: Hypertension, High cholesterol, Peripheral Vascular Disease, Deep vein thrombosis, Atrial fibrillation Respiratory: None Neuro: Seizure disorder Endocrine/Autoimmune: Type 2 diabetes GI: GERD, Ulcers, Hiatal hernia, Colon polyps, Diverticulitis, Other : Nocturia, Frequency, Other HEENT: Chronic vision loss, Glaucoma, Chronic sinusitis, Other Psych: None Musculoskeletal: Osteoarthritis, Gout Derm: Other Other Past Medical History: prostate cancer - Past Surgical History Past Surgical History: Yes General: EGD, Colonoscopy Ortho: Arthroscopic surgery Neuro: Craniotomy HEENT: Cataracts - Present Medications Home Medications: Ambulatory Orders Medication Instructions Recorded Confirmed Metformin HCl [Metformin HCl ER] 500 mg PO BID 04/19/13 01/09/24 Cyanocobalamin [Vitamin B-12] 500 mcg PO DAILY 05/09/14 01/09/24 Pnv No.95/Ferrous Fum/Folic AC 1 tab PO DAILY 05/09/14 01/09/24 [ Tablet] Ascorbic Acid [Vitamin C] 500 mg PO BID 03/11/16 01/09/24 Metoprolol Tartrate [Lopressor] 50 mg PO BID 03/11/16 01/09/24 Ferrous Gluconate [Iron] 240 mg PO DAILY PM 12/09/18 01/09/24 Rivaroxaban [Xarelto] 20 mg PO HS 07/05/21 01/09/24 Potassium Chloride 10 meq PO QID 07/14/21 01/09/24 Rosuvastatin Calcium [Crestor] 10 mg PO HS 01/09/24 01/09/24 hydroCHLOROthiazide [Hydrodiuril] 12.5 mg PO DAILY 01/09/24 01/09/24 Amoxicillin/Potassium Clav 2 tab PO BID #20 ea 05/09/24 [Augmentin Xr 1,000-62.5 Tab] guaiFENesin/CODEINE [Robitussin AC] 5 - 10 ml PO Q6H PRN #120 ml 05/09/24 - Allergies Allergies/Adverse Reactions: Allergies Allergy/AdvReac Type Severity Reaction Status Date / Time ciprofloxacin [From Cipro] Allergy Mild Hives Verified 05/09/24 13:55 ciprofloxacin HCl * Allergy Mild Hives Verified 05/09/24 13:55 [From Cipro] cephalexin Allergy Anaphylaxis Verified 05/09/24 13:55 tetanus and diphtheria Allergy Unknown Verified 05/09/24 13:55 toxoids - Social History Does the pt smoke?: No Smoking Status: Former smoker Does the pt drink ETOH?: Yes ETOH Use: Liquor Does the pt have substance abuse?: No - Immunizations Immunizations are current?: Yes - POLST Patient has POLST: No POLST Status: Full Code PD ED PE NORMAL - Vitals Vital signs reviewed: Yes - General General: Alert and oriented X 3, No acute distress - Cardiac Cardiac: RRR, No murmur - Respiratory Respiratory: No respiratory distress, Clear bilaterally - Abdomen Abdomen: Non tender - Neuro Neuro: Alert and oriented X 3 Results - Vitals Vitals: Vital Signs - 24 hr 05/09/24 13:56 Temperature 37.2 C Heart Rate 77 Respiratory 20 Rate Blood Pressure 124/98 H O2 Saturation 98 Oxygen O2 Source Room air - Rads (name of study) 2 view chest x-ray demonstrates a slightly increased small left pleural effusion with adjacent atelectasis or consolidation. Relevant Findings:: Final report received, EMP independent interpretation of test PD Medical Decision Making - ED course ED course: He has probably pneumonia with a small pleural effusion. It is too small radiographically to intervene upon and he is certainly not an extremis. Will start Augmentin as he has failed doxycycline with recommended and mandated follow-up x-rays for improvement with his PCP. Departure - Departure Disposition: 01 Home, Self Care Clinical Impression: Pneumonia Qualifiers: Pneumonia type: due to unspecified organism Laterality: left Lung location: lower lobe of lung Qualified Code(s): J18.9 - Pneumonia, unspecified organism Condition: Good Record reviewed to determine appropriate education?: Yes Instructions: Pneumonia Dc Prescriptions: Amoxicillin/Potassium Clav [Augmentin Xr 1,000-62.5 Tab] 2 tab PO BID #20 ea guaiFENesin/CODEINE [Robitussin AC] 5 - 10 ml PO Q6H PRN #120 ml PRN Reason: Cough Comments: I sent your prescription electronically to the [facility] in [place]. As discussed, I would like you to have a repeat x-ray with Dr. Calzada in a couple of weeks to assess for the improvement and resolution of the fluid in your left lung. In the interim return for new or worsening symptoms. Forms: PCP List
[2024-05-09 15:39] VITALS: BP 122/66; O2SAT 97
[2024-05-09 15:44] LABS: CORONAVIRUS 229E-RESP PCR NOT DETECTED; CORONAVIRUS HKU1-RESP PCR NOT DETECTED; CORONAVIRUS NL63-RESP PCR NOT DETECTED; CORONAVIRUS OC43-RESP PCR NOT DETECTED; HUMAN METAPNEUMOVIRUS NOT DETECTED; RHINOVIRUS/ENTEROVIRUS DETECTED; SARS-CoV-2 -RESP PCR PANEL NOT DETECTED
[2024-05-09 15:45] LABS: B. PARAPERTUSSIS- RESP PCR PAN NOT DETECTED; B. PERTUSSIS- RESP PCR PANEL NOT DETECTED; C. PNEUMONIAE- RESP PCR PANEL NOT DETECTED; INFLUENZA A- RESP PCR PANEL NOT DETECTED; INFLUENZA B - RESP PCR PANEL NOT DETECTED; M. PNEUMONIAE- RESP PCR PANEL NOT DETECTED; PARAINFLUENZA VIRUS 1 NOT DETECTED; PARAINFLUENZA VIRUS 2 NOT DETECTED; PARAINFLUENZA VIRUS 3 NOT DETECTED; PARAINFLUENZA VIRUS 4 NOT DETECTED; RSV- RESP PCR PANEL NOT DETECTED
== END 2024-05-09 15:43 | disposition home or self-care (01) ==
LOC: ED 13:49
DX: J18.9 Pneumonia, unspecified organism (principal); Z20.818 Contact with and (suspected) exposure to other bacterial communicable diseases; Z20.822 Contact with and (suspected) exposure to COVID-19; Z20.828 Contact with and (suspected) exposure to other viral communicable diseases
CPT/HCPCS: 87633; 99284

== ENCOUNTER 2024-06-26 11:22 | Emergency (ER) | payer MEDICARE, OTHER ==
[2024-06-26] MEDS: BACITRACIN ZINC OINT 1 PACKET TOP STA (12:11)
--- NOTE | 2024-06-26 14:00 | CT Report ---
PROCEDURE: Head WO INDICATIONS: fall/head inj/doac TECHNIQUE: Noncontrast 4.5 mm thick angled axial sections acquired from the foramen magnum to the vertex. For r adiation dose reduction, the following was used: automated exposure control, adjustment of mA and/or kV according to patient size. COMPARISON: Brain MRI dated 03/18/2024, head CT dated 01/09/2024. FINDINGS: Image quality: Excellent. CSF spaces: Basal cisterns are patent. No extra-axial fluid collections. Ventricles are normal in size and shape. Brain: No midline shift. Again noted is a right skull base meningioma which measures approximately 1 .6 cm x 1.5 cm on coronal reformat image 24 of series 6. It is similar in size to the previous study of December,. Encephalomalacia in the anterior right temporal region and right frontal region is likely postsurgical in nature. Intracranial carotid calcifications. Age-related volume loss and smal l vessel ischemic change. Johnston-white matter interface is normal. Skull and face: Remote right frontotemporal craniotomy. Calvarium and visualized facial bones are in tact, without suspicious lesions. Sinuses: Visualized sinuses and mastoids are clear. IMPRESSION: 1. Remote right frontotemporal craniotomy with postoperative sequelae. 2. 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 3. Age-related volume loss and small vessel ischemic change. 4. No acute intracranial process noted. Reviewed by: Jose Armando Harris MD on 06/26/2024 1:58 PM PDT Approved by: Jose Armando Harris MD on 06/26/2024 1:58 PM PDT Station ID: [id number]
--- NOTE | 2024-06-26 14:37 | ED Physician Documentation ---
History of Present Illness - Stated complaint Stated Complaint: GLF,RT ELBE/HEAD INJ - Chief complaint Chief Complaint: Trauma Hd/Nk - History obtained from History obtained from: Patient, Family - Additonal information Additional information: The patient is brought to the emergency department by his [id number] for chief complaint of ground-level fall with head injury. The patient is anticoagulated and was stepping outside this morning when he tripped over his cat, who ran between his legs, and fell. He states the surface was concrete and that he hit his elbow on the welcome mat which was on the concrete porch, and bumped his head on the cement. He did not lose consciousness. He has noticed some wounds on his elbow and a small wound on his head. He denies neck pain. No back pain. No rib, hip, pelvis, or abdominal pain. He states he does not have any other complaints whatsoever. PD PAST MEDICAL HISTORY - Past Medical History Cardiovascular: Hypertension, High cholesterol, Peripheral Vascular Disease, Deep vein thrombosis, Atrial fibrillation Respiratory: None Neuro: Seizure disorder Endocrine/Autoimmune: Type 2 diabetes GI: GERD, Ulcers, Hiatal hernia, Colon polyps, Diverticulitis, Other : Nocturia, Frequency, Other HEENT: Chronic vision loss, Glaucoma, Chronic sinusitis, Other Psych: None Musculoskeletal: Osteoarthritis, Gout Derm: Other - Past Surgical History Past Surgical History: Yes General: EGD, Colonoscopy Ortho: Arthroscopic surgery Neuro: Craniotomy HEENT: Cataracts - Present Medications Home Medications: Ambulatory Orders Medication Instructions Recorded Confirmed Metformin HCl [Metformin HCl ER] 500 mg PO BID 04/19/13 01/09/24 Cyanocobalamin [Vitamin B-12] 500 mcg PO DAILY 05/09/14 01/09/24 Pnv No.95/Ferrous Fum/Folic AC 1 tab PO DAILY 05/09/14 01/09/24 [ Tablet] Ascorbic Acid [Vitamin C] 500 mg PO BID 03/11/16 01/09/24 Metoprolol Tartrate [Lopressor] 50 mg PO BID 03/11/16 01/09/24 Ferrous Gluconate [Iron] 240 mg PO DAILY PM 12/09/18 01/09/24 Rivaroxaban [Xarelto] 20 mg PO HS 07/05/21 01/09/24 Potassium Chloride 10 meq PO QID 07/14/21 01/09/24 Rosuvastatin Calcium [Crestor] 10 mg PO HS 01/09/24 01/09/24 hydroCHLOROthiazide [Hydrodiuril] 12.5 mg PO DAILY 01/09/24 01/09/24 Amoxicillin/Potassium Clav 2 tab PO BID #20 ea 05/09/24 [Augmentin Xr 1,000-62.5 Tab] guaiFENesin/CODEINE [Robitussin AC] 5 - 10 ml PO Q6H PRN #120 ml 05/09/24 - Allergies Allergies/Adverse Reactions: Allergies Allergy/AdvReac Type Severity Reaction Status Date / Time ciprofloxacin [From Cipro] Allergy Mild Hives Verified 06/26/24 11:48 ciprofloxacin HCl * Allergy Mild Hives Verified 06/26/24 11:48 [From Cipro] cephalexin Allergy Anaphylaxis Verified 06/26/24 11:48 tetanus and diphtheria Allergy Unknown Verified 06/26/24 11:48 toxoids - Social History Does the pt smoke?: No Smoking Status: Never smoker Does the pt drink ETOH?: Yes Does the pt have substance abuse?: No - Immunizations Immunizations are current?: Yes - POLST Patient has POLST: No POLST Status: Full Code PD ED PE NORMAL - Vitals Vital signs reviewed: Yes - General General: Alert and oriented X 3, No acute distress, Well developed/nourished - HEENT HEENT: PERRL, EOMI, Moist mucous membranes, Other (1.5 cm skin tear over right bahai.) - Neck Neck: Supple, no meningeal sign, No bony TTP - Cardiac Cardiac: RRR, No murmur - Respiratory Respiratory: No respiratory distress, Clear bilaterally - Abdomen Abdomen: Soft, Non tender, Non distended - Back Back: No spinal TTP - Derm Derm: Normal color, Warm and dry, No rash, Other (Skin tears over right elbow with no laceration. No swelling or contusion.) - Extremities Extremities: No deformity, No tenderness to palpate, Normal ROM s pain (Full range of motion right elbow.), Other (1+ pitting edema bilateral lower extremities. No tenderness of pelvis or hips.) - Neuro Neuro: Other (Alert and appropriate; answers questions from self. No gross deficits.) - Psych Psych: Normal mood, Normal affect Results - Vitals Vitals: Vital Signs - 24 hr 06/26/24 06/26/24 06/26/24 11:42 12:03 12:30 Temperature 36.5 C Heart Rate 74 68 73 Respiratory 18 19 17 Rate Blood Pressure 106/94 H 136/61 H 121/61 O2 Saturation 99 97 98 If not protocol 0 : Oxygen Flow, liters/minute 06/26/24 13:00 Temperature Heart Rate 74 Respiratory 16 Rate Blood Pressure O2 Saturation 100 If not protocol : Oxygen Flow, liters/minute Oxygen O2 Source Room air - Rads (name of study) CT head Relevant Findings:: Final report received, See rad report (Negative) PD Medical Decision Making - ED course Complexity details: reviewed results, re-evaluated patient, considered differential, d/w patient, d/w family ED course: The patient's wounds were dressed with bacitracin and gauze and he was sent for CT scan of the head, which was Negative for acute findings. The patient was stable for discharge home. We have discussed wound care and follow-up with his primary doctor. Departure - Departure Disposition: 01 Home, Self Care Clinical Impression: Ground-level fall Closed head injury Qualifiers: Encounter type: initial encounter Qualified Code(s): S09.90XA - Unspecified injury of head, initial encounter Skin tear of elbow without complication Qualifiers: Encounter type: initial encounter Laterality: right Qualified Code(s): S51.011A - Laceration without foreign body of right elbow, initial encounter Condition: Stable Instructions: ED Head Injury Closed Comments: Your head CT does not show any acute findings. You have some old findings that are stable but no evidence of bleeding in your brain or skull fracture. You may apply Neosporin or bacitracin to your wounds until they scab over. Please follow-up with your primary care physician as needed.
[2024-06-26 14:39] VITALS: BP 119/70; O2SAT 96
== END 2024-06-26 14:52 | disposition home or self-care (01) ==
LOC: ED 11:22
DX: S09.90XA Unspecified injury of head, initial encounter (principal); S51.011A Laceration without foreign body of right elbow, initial encounter; W01.0XXA Fall on same level from slipping, tripping and stumbling without subsequent striking against object, initial encounter; R60.0 Localized edema; I10 Essential (primary) hypertension; E78.00 Pure hypercholesterolemia, unspecified; I48.91 Unspecified atrial fibrillation; E11.9 Type 2 diabetes mellitus without complications; Z79.01 Long term (current) use of anticoagulants; Z79.84 Long term (current) use of oral hypoglycemic drugs; Z79.899 Other long term (current) drug therapy
CPT/HCPCS: 70450; 99283; 99284; A9270

== ENCOUNTER 2024-07-21 08:31 | Outpatient (CLI) | payer MEDICARE, OTHER ==
[2024-07-21 12:59] LABS: CALCIUM 8.7 mg/dL (8.5-10.3); CREATININE 1.1 mg/dL (0.6-1.3); POTASSIUM 4.2 mmol/L (3.5-4.5)
[2024-07-21 13:14] LABS: ESTIMATED AVERAGE GLUCOSE 134 mg/dL (70-100); HEMOGLOBIN A1c% 6.3 % (4.27-6.07)
== END 2024-07-21 08:32 | disposition home or self-care (01) ==
LOC: LAB.N 08:31
PROVIDERS: ATTEND Family Medicine
DX: E11.65 Type 2 diabetes mellitus with hyperglycemia (principal)
CPT/HCPCS: 36415; 80048; 83036

== ENCOUNTER 2024-07-27 11:04 | Outpatient (CLI) | payer MEDICARE, OTHER ==
--- NOTE | 2024-07-27 15:50 | XRAY Report ---
PROCEDURE: Chest 2V INDICATIONS: LLL PNEUMONITIS TECHNIQUE: 2 views of the chest were acquired. COMPARISON: 05/09/2024 FINDINGS: Surgical changes and devices: None. Lungs and pleura: Small left pleural effusion is redemonstrated, similar size compared to prior. The right lung is slightly hyperinflated but clear. Mild left lower lung airspace opacity, similar to pr ior. Mediastinum: Mediastinal contours appear normal. Heart size is normal. Bones and chest wall: No suspicious bony lesions. Overlying soft tissues appear unremarkable. IMPRESSION: Persistent small left lower lung opacity and effusion. Consider indolent infectious, inflammatory pro cesses or chronic interstitial pneumonitis. Reviewed by: Nalini Keita MD on 07/27/2024 3:48 PM PDT Approved by: Nalini Keita MD on 07/27/2024 3:48 PM PDT Station ID: [id number]
== END 2024-07-27 11:05 | disposition home or self-care (01) ==
LOC: LAB.N 11:04 → DI.N 11:05
PROVIDERS: ATTEND Family Medicine
DX: R91.8 Other nonspecific abnormal finding of lung field (principal); J90 Pleural effusion, not elsewhere classified